=== PATIENT | female | born 1985 | race Caucasian/White ===

== ENCOUNTER 2023-11-04 09:01 | Inpatient (IN) | payer OTHER, SELFPAY ==
[2023-11-04] VITALS (26 sets, daily range): BP systolic 83–143; BP diastolic 40–74; PULSE 66–117; RESP 11–22; TEMP 36.7–40.2; O2SAT 86–96; BMI 46.8
--- NOTE | 2023-11-04 | ECG_ITS ---
Test Reason : AMS Blood Pressure : / mmHG Vent. Rate : 107 BPM Atrial Rate : 107 BPM P-R Int : 142 ms QRS Dur : 090 ms QT Int : 398 ms P-R-T Axes : 038 013 034 degrees QTc Int : 531 ms Sinus tachycardia Prolonged QT Abnormal ECG No previous ECGs available Referred By: Generic ED Physician Electronically Signed By:Joe Romeo
--- NOTE | ~2023-11-04 | XR_ITS ---
EXAMINATION: XR CHEST CLINICAL INFORMATION: Rule out developing pneumonia COMPARISON: 11/04/2023 TECHNIQUE: 2 views of the chest were obtained. FINDINGS: Examination is technically very limited on this AP and very limited lateral portable examination. No significant abnormality is noted involving the heart, lungs, mediastinum, bony thorax or soft tissues. XR/XR chest 2V IMPRESSION: Very limited though grossly clear frontal and lateral chest radiographs.
--- NOTE | ~2023-11-04 | CT_ITS ---
EXAMINATION: CT HEAD WITHOUT CONTRAST CLINICAL INFORMATION: Altered mental status COMPARISON: None. TECHNIQUE: Contiguous axial imaging was performed from the skull base to vertex without intravenous administration of contrast. Coronal and sagittal reformatted images are performed at the CT scanner. [This CT examination was performed using dose optimization techniques as appropriate, variously including the following: *Automated exposure control *Adjustment of mA and/or kV according to patient size (this includes techniques or standardized protocols for targeted exams where dose is matched to indication/reason for exam; i.e. extremities or head) *Use of iterative reconstruction technique] DLP: 695 mGy-cm. FINDINGS: Artifact from small round metallic structure at the midline anteriorly. Correlate with history. There is no evidence of acute intracranial hemorrhage or territorial infarction. No abnormal mass-effect or midline shift is seen. Tabares to white matter differentiation is well preserved. No extra-axial fluid collections are identified. The ventricles are normal in size. There is no abnormal attenuation within the brain parenchyma. There is no osseous abnormality. The mastoid air cells and visualized portions of the paranasal sinuses are well-aerated. CT/CT head/brain wo IV con IMPRESSION: No acute intracranial pathology.
--- NOTE | ~2023-11-04 | CT_ITS ---
EXAMINATION: CT ABDOMEN AND PELVIS WITHOUT CONTRAST CLINICAL INFORMATION: Right lower quadrant pain. COMPARISON: None available. TECHNIQUE: Multidetector volumetric imaging was performed from the superior aspect of the liver through the pubic symphysis. Sagittal and coronal reformatted images were obtained on the technologist's workstation. This CT examination was performed using dose optimization techniques as appropriate, variously including the following: *Automated exposure control *Adjustment of mA and/or kV according to patient size (this includes techniques or standardized protocols for targeted exams where dose is matched to indication/reason for exam; i.e. extremities or head) *Use of iterative reconstruction technique DLP: 1340 mGy-cm FINDINGS: LOCALIZER IMAGES: No dilated bowel loops. [id number] amount fecal material within the colon. Obese body habitus. LUNG BASES: Mild atelectasis in dependent aspect of each lower lobe. HEPATOBILIARY: Diffuse hepatic steatosis (or steatohepatitis) and hepatomegaly with right hepatic lobe measuring approximately 28.5 cm in maximum length. No focal liver lesion. Gallbladder has a grossly normal appearance. No dilated bile ducts. PANCREAS: No edema, pancreatic ductal dilatation or mass. SPLEEN: Mild splenomegaly. Spleen is 15 cm in maximum dimension. ADRENAL GLANDS: Normal. KIDNEYS AND URETERS: Kidneys are normal in size. Small 0.3 cm calyceal stone of the lower pole of the left kidney (image 38, series 3). No ureteral stones or hydroureteronephrosis. BLADDER: Normal. BOWEL AND PERITONEUM: Stomach and small bowel are unremarkable. No dilated loops. The appendix is normal. No overt colonic wall thickening or mesenteric fat stranding. No free fluid or pneumoperitoneum. ABDOMINAL WALL: A very small fat-containing umbilical hernia is noted. No acute abnormalities within the abdominal wall. Mild streak artifact from metallic clips in the right inguinal region. VASCULATURE: Abdominal aorta is normal in caliber. LYMPH NODES: No retroperitoneal or mesenteric lymphadenopathy. Mildly enlarged inguinal lymph nodes. The largest right and left inguinal lymph nodes measure up to approximately 1.5 cm and 1.2 cm short axis dimension, respectively, and there are slightly prominent right and left lower external iliac lymph nodes. PELVIC VISCERA: No uterine or adnexal mass. No pelvic free fluid. MUSCULOSKELETAL: No acute or suspicious osseous abnormality. CT/CT abdomen pelvis wo IV con IMPRESSION: * No specific source of right lower quadrant pain is identified. No evidence of appendicitis. * Obesity, hepatosplenomegaly and diffuse hepatic steatosis (or steatohepatitis). * Small stone of the lower pole of the left kidney. No ureteral stones or hydroureteronephrosis. * There is mild inguinal and external iliac lymphadenopathy. Since the superficial right inguinal lymph nodes are larger than those seen on the left, query if there is any soft tissue inflammatory process in the right lower extremity which could cause a mild reactive lymphadenopathy.
--- NOTE | ~2023-11-04 | XR_ITS ---
EXAMINATION: XR CHEST CLINICAL INFORMATION: Evaluate infection. COMPARISON: None available. TECHNIQUE: 2 views of the chest were obtained. FINDINGS: Large body habitus. Lungs are well expanded. No evidence of pulmonary consolidation, pleural effusion or pneumothorax. Cardiac silhouette is normal in size. The pulmonary vascular pattern is normal. No acute osseous abnormality. XR/XR chest 2V IMPRESSION: No radiographic evidence of pneumonia.
[2023-11-04 09:17] LABS: Glucose, Whole Blood 235 mg/dL (60-115)
[2023-11-04 09:44] LABS: Hematocrit 35.1 % (37.0-47.0); Hemoglobin 11.4 g/dl (12.0-16.0); Mean Corpuscular HGB Conc 32.5 g/dl (31.0-35.0); Mean Corpuscular Hemoglobin 25.9 pg (27.0-33.0); Mean Corpuscular Volume 79.8 fL (80.0-98.0); Mean Platelet Volume 10.2 fL (9.4-12.3); Platelet Count 270 X10*3/uL (160-400); White Blood Count 12.6 X10*3/uL (4.8-10.8)
--- NOTE | 2023-11-04 09:45 | ED_ITS ---
HPI - Altered Mental Status General Chief Complaint: Altered Mental Status Stated Complaint: AMS,DIAPHORETIC,NAUSEA,THIRST PER EMS Time Seen by Provider: 11/04/23 09:42 Source: patient and EMS Mode of arrival: EMS Limitations: no limitations History of Present Illness ED Provider: RL VILLEGAS PA-C HPI narrative: 38 year old female presents to the ED today via EMS from methadone rehab facility for evaluation of AMS. Per long term staff, patient alert and oriented to self however was having difficulty finding worse. Began reporting increased thirst, nausea, and became diaphoretic, prompting staff to call EMS. In ED, patient tells me that she woke up this morning with central lumbar back pain and diarrhea. Reports taking tylenol for this around 0800. Now having right lower abdominal pain that radiates to her back. Admits to remote history of IVDU 10 years ago. No current IVDU. No history of spinal surgeries. Denies injury/ trauma to the back. Denies dysuria, hematuria, flank pain, vaginal discharge, constipation. Related Data Home Medications ?Medication ?Instructions ?Recorded ?Confirmed acetaminophen 325 mg tablet 650 mg PO Q6H PRN pain 11/04/23 albuterol sulfate 90 mcg/actuation inhalation 11/04/23 aerosol inhaler (Ventolin HFA) alprazolam 1 mg tablet 1 mg PO QID PRN Anxiety 11/04/23 aspirin 81 mg tablet,delayed 81 mg PO DAILY 11/04/23 release diclofenac sodium 75 mg 75 mg PO BID 11/04/23 tablet,delayed release diphenhydramine HCl 25 mg tablet 75 mg PO BEDTIME PRN insomnia 11/04/23 (Banophen) doxazosin 2 mg tablet 2 mg PO DAILY 11/04/23 lamotrigine 200 mg tablet 200 mg PO BID 11/04/23 levothyroxine 112 mcg tablet 112 mcg PO DAILY@0600 11/04/23 lurasidone 80 mg tablet 80 mg PO DAILY 11/04/23 multivitamin with folic acid 400 1 tab PO DAILY 11/04/23 mcg tablet (Daily-[place] (with folic acid)) omeprazole 20 mg capsule,delayed 20 mg PO DAILY@0630 11/04/23 release potassium chloride 10 mEq 10 meq PO BID 11/04/23 tablet,extended release prazosin 5 mg capsule 5 mg PO BID 11/04/23 pregabalin 150 mg capsule 300 mg PO BID 11/04/23 promethazine 50 mg tablet 100 mg PO BID 11/04/23 torsemide 20 mg tablet 40 mg PO DAILY 11/04/23 triamcinolone acetonide 0.1 % 1 appl topical BID-TID 11/04/23 topical cream zolpidem 10 mg tablet 10 mg PO BEDTIME insomnia 11/04/23 Allergies Allergy/AdvReac Type Severity Reaction Status Date / Time cephalexin Allergy Unknown Verified 11/04/23 09:16 Review of Systems 2 Review of Systems: Constitutional: No fever, chills, fatigue, night sweats, weight changes ENT/Mouth: No ear pain, hearing loss, nasal congestion, sinus pain, rhinorrhea, sore throat Eyes: No eye pain, swelling, redness, vision changes, discharge Cardio: No chest pain, palpitations, [place], orthopnea, peripheral edema Pulm: No SOB, cough, sputum, wheezing, dyspnea, hemoptysis GI: No nausea, vomiting, hematemesis, constipation, hematochezia, melena, + abdominal pain : No irregular bleeding, dysuria, frequency, urgency, hesitancy, hematuria, flank pain, urinary flow changes, urinary incontinence or retention MSK: No neck pain, joint pain, myalgias, +back pain Skin: No lesions, rashes Neuro: No weakness, numbness, paresthesias, LOC, dizziness, headache Psych: No anxiety/panic, depression, SI/HI, AH/VH All other systems reviewed and are negative. [facility] Past Medical History Attestation statement: The following information was validated with the patient. Source: old records reviewed and nursing notes reviewed Social History Social History Household Members: Unknown / Unable to assess Housing: Unknown / Unable to assess Patient Tobacco Use Status: Tobacco use Unknown Smoked in Last 30 Days: Yes Use of substances other than those prescribed or required for medical reasons: Unable to respond Substance Use Type: Unknown Any prior treatment program specific to substance use: Yes Spiritual Healthcare Practices: unknown Advance Directives: No Advance Directives Information Provided: Yes Do you have a plan to hurt others: Vague Recently lost weight without trying: Unsure How much weight loss: Unsure Physical Exam ED Vital Signs: Vital Signs - 24 hr 11/04/23 09:22 11/04/23 09:23 11/04/23 09:33 Temperature 98.7 F Pulse Rate 105 H 109 H 107 H Respiratory Rate 22 H 22 H Blood Pressure 121/66 Pulse Oximetry 86 L 88 L 92 Oxygen Delivery Method Room Air Nasal Cannula Nasal Cannula Oxygen Flow Rate 2 4 11/04/23 09:42 11/04/23 09:43 11/04/23 11:23 Temperature 104.3 F H 104.1 F H 101.6 F H Pulse Rate 103 H 92 Respiratory Rate 16 18 Blood Pressure 128/59 L 110/45 L Pulse Oximetry 88 L 92 Oxygen Delivery Method Nasal Cannula Nasal Cannula Oxygen Flow Rate 4 5 11/04/23 12:09 11/04/23 12:55 11/04/23 15:22 Temperature 100.5 F H Pulse Rate 82 81 73 Respiratory Rate 18 14 14 Blood Pressure 107/48 L 95/40 L 83/47 L Pulse Oximetry 91 L 92 95 Oxygen Delivery Method Nasal Cannula Nasal Cannula Nasal Cannula Oxygen Flow Rate 5 5 5 11/04/23 15:34 11/04/23 15:37 11/04/23 15:41 Temperature Pulse Rate 69 70 67 Respiratory Rate 14 14 Blood Pressure 83/47 L 103/46 L 114/53 L Pulse Oximetry 93 94 Oxygen Delivery Method Nasal Cannula Nasal Cannula Oxygen Flow Rate 5 5 11/04/23 15:49 11/04/23 16:02 Temperature Pulse Rate 67 66 Respiratory Rate 14 14 Blood Pressure 114/64 129/61 Pulse Oximetry 94 94 Oxygen Delivery Method Nasal Cannula Nasal Cannula Oxygen Flow Rate 5 5 BMI result Body Mass Index 46.8 Initially febrile, tachypneic, tachycardic Const Other: Patient oriented to person, place, year. Mentation waxes and wanes. General: diaphoretic and ill appearing Limitations: altered mental status [facility] Head: Yes normal to inspection, Yes No palpable skull fracture present, Yes normocephalic and Yes atraumatic Throat: Yes posterior oropharynx normal Eyes General: appearance normal, both eyes and all related structures Pupils: Equal, round and reactive pupils present Neck Neck: Yes normal visual inspection, Yes full ROM and Yes no lymphadenopathy Chest Chest palpation & inspection: normal inspection of the chest Resp Effort & Inspection: able to speak in complete sentences Auscultation: clear to auscultation bilaterally Cardio Rate: tachycardic Rhythm: regular rhythm GI Other: Obese abdomen, soft, mildly tender to palpation of right lower quadrant without rebound tenderness or guarding. Normoactive bowel sounds x4. Inspection: Yes normal to inspection General: Yes no CVA tenderness Back/Spine/Pelvis Other: There is minimal midline lumbar spinous tenderness to palpation without palpable deformity, mass, fluctuance. No paraspinal muscle tenderness to palpation. Back: no CVA tenderness Skin Other: No open wounds noted to skin General skin exam: no rashes or lesions noted Neuro Other: Strength 5/5 intact throughout. No saddle anesthesia.?Sensation intact to light touch.?Neurovascular intact distally.? Cranial nerves: Yes Equal, round and reactive pupils present Extrem General: Yes normal to inspection Course Course Course Narrative: 1400-- Discussed case with my attending physician Dr. Garcia who has evaluated patient at bedside and is agreeable with current work up. CBC showing leukocytosis to 12.6 with 14% bands. Chemistry without acute electrolyte abnormality requiring intervention. Random glucose 233. Normal renal function. Elevated LFTs however no evidence of obstruction with total bili wnl. Initial lactic acid 3.3. Repeat lactic improved to 2.5 following 4 L of fluids. Urine is negative for infection. There is 2+ urine bacteria with 6- 10 squamous epithelial cells, likely contamination. Toxicology positive for methadone and benzos. Ethanol undetectable. She tested negative for COVID, flu, RSV, and strep. Chest x-ray does not demonstrate consolidation or infiltrate to suggest pneumonia. > After receiving call from lab regarding critical lactic of 3.3 > concern for infection noted. Zosyn and vancomycin ordered for broad-spectrum coverage. Sepsis protocol fluids ordered at that time. Tylenol/ Motrin given for fever. > CT abdomen/pelvis pending to r/o pathology. 1438-- Patient's O2 saturation around 92 on 5 L nasal cannula. Initial chest x- ray does not demonstrate pneumonia. Will repeat to see if she has developed pneumonia in the interim. > vbg, ammonia, and tsh for continued altered mentation. 1459-- Discussed case with my attending physician Dr. Garcia who again evaluated patient at bedside. Patient becoming more lethargic. Responsive to painful stimuli.. CT head ordered. another liter of IVF ordered. will continue to monitor blood pressure. 1528-- Repeat BP 83/47. Dr. Bales and Dr. Garcia at bedside. Levophed ordered per protocol through peripheral IV at request of Dr. Bales. He is agreeable to admission to ICU pending unremarkable CT head/brain. 1600-- CT head does not demonstrate acute intracranial pathology. Dr. Britton has accepted admission to ICU for septic shock with unclear source requiring pressor support. Reevaluation(s) Reevaluation #1: Patient reevaluated by me. Pressure now down despite 4L of fluid and abx. Will give another liter, start levophed. Patient not with menigismus but Head CT done for altered mental status. Case presented at bedside to Dr. Ortiz who will accept the patient Time: 15:32 Medications Administered Generic Name Dose Route Start Last Admin Trade Name Freq PRN Reason Stop Dose Admin Heparin Sodium (Porcine) 5,000 unit 11/04/23 15:30 11/04/23 15:38 Heparin Sodium,Porcine 5,000 Unit/Ml Vial SUBCUT 5,000 unit Q8H NISSA Administration Norepinephrine Bitartrate 8 mg in 250 mls @ 0 mls/hr 11/04/23 15:30 11/04/23 17:42 Levophed IV 0.07 mcg/kg/min .Q0M NISSA 18.34 mls/hr Titration Protocol Per Protocol Piperacillin Sod/Tazobactam 50 mls @ 100 mls/hr 11/04/23 15:30 11/04/23 16:26 Sod 3.375 gm/ Sodium Chloride IV Infused Q6H NISSA Infusion Insulin Human Lispro 0 unit 11/04/23 16:30 11/04/23 17:43 Insulin Lispro 100 Unit/Ml 3 Ml Vial SUBCUT Not Given QIDACHS ON LICENSE OF [facility] Protocol Discontinued Medications Generic Name Dose Route Start Last Admin Trade Name Freq PRN Reason Stop Dose Admin Acetaminophen 975 mg 11/04/23 10:05 11/04/23 10:17 Acetaminophen 325 Mg Tablet PO 11/04/23 10:06 975 mg ONCE ONE Administration Sodium Chloride 4,191 mls @ 4,191 mls/hr 11/04/23 09:42 11/04/23 12:00 Ns 30 ml/kg infuse over 1 hr (4191 ml) 11/04/23 10:41 Infused IV Infusion .Q1H STA Piperacillin Sod/Tazobactam 50 mls @ 100 mls/hr 11/04/23 09:43 11/04/23 10:36 Sod 3.375 gm/ Sodium Chloride IV 11/04/23 10:12 Infused ONCE ONE Infusion Vancomycin HCl 2,000 mg in 500 mls @ 250 mls/hr 11/04/23 09:43 11/04/23 12:21 Vancomycin/Ns IV 11/04/23 11:42 Infused ONCE ONE Infusion Sodium Chloride 1,000 mls @ 999 mls/hr 11/04/23 15:00 11/04/23 16:02 Ns IV 11/04/23 16:00 Infused .Q1H1M NISSA Infusion Ibuprofen 600 mg 11/04/23 10:05 11/04/23 10:17 Ibuprofen 600 Mg Tablet PO 11/04/23 10:06 600 mg ONCE ONE Administration Ketorolac Tromethamine 30 mg 11/04/23 15:13 11/04/23 15:30 Ketorolac Tromethamine 30 Mg/Ml Vial IVPUSH 11/04/23 15:14 30 mg ONCE ONE Administration Medical Decision Making Medical Decision Making [facility] Narrative: 38 year old female presents to the ED today via EMS from methadone rehab facility for evaluation of AMS. On arrival, patient febrile to 104 rectally, tachycardic to 105, tachypneic to 22, and satting 96% on RA. Patient placed on 5L nasal cannula. Patient diaphoretic, ill appearing. Oriented to person, place, and year. Obese abdomen, ttp along right upper and right low quadrants without rebound or guarding. Minimal midline lumbar spinous tenderness without palpable mass or fluctuance. no step off deformity. No CVAT b/l. I have not been able to assess ambulation due to patient's acute mental status. No meningeal signs or nunchal rigidity. Differential diagnosis includes viral syndrome, UTI, pneumonia, bacteremia. Lower suspicion for epidural abscess, meningitis, encephalitis Plan for labs, lactic, blood cultures, UA, u preg, CXR and re-evaluation. Differential Diagnosis Differential Diagnoses: The differential diagnosis associated with the presentation includes as above. Admission/Observation Consideration of admission/observation: Escalation of care including admission/observation considered Patient to be admitted to ICU Consult Healthcare Provider Management of the patient was discussed with: Director Machine (Clothing Examiner Dr. Ortiz) Lab Data [facility] Lab Attestation statement: I reviewed the patient's lab results. as above. 11/04/23 09:32 11/04/23 09:32 Labs: Lab Results 11/04/23 11/04/23 11/04/23 Range/Units 09:13 09:32 10:01 WBC 12.6 H (4.8-10.8) X10*3/uL RBC 4.40 (4.20-5.50) X10*6/uL Hgb 11.4 L (12.0-16.0) g/dl Hct 35.1 L (37.0-47.0) % MCV 79.8 L (80.0-98.0) fL MCH 25.9 L (27.0-33.0) pg MCHC 32.5 (31.0-35.0) g/dl RDW 18.0 H (11.0-16.0) % Plt Count 270 (160-400) X10*3/uL MPV 10.2 (9.4-12.3) fL Immature Gran % (Auto) Cancelled Neut % (Auto) Cancelled Lymph % (Auto) Cancelled [place] % (Auto) Cancelled Eos % (Auto) Cancelled Baso % (Auto) Cancelled Lymph # (Auto) Cancelled [place] # (Auto) Cancelled Eos # (Auto) Cancelled Baso # (Auto) Cancelled Abs Immat Gran (auto) Cancelled Absolute Neuts (auto) Cancelled Absolute Nucleated RBC 0.000 (0.0-0.012) X10*3/uL Nucleated RBC % (auto) 0.0 (0.0-0.2) /100WBC Neutrophils % (Manual) 79 H (45-73) % Band Neutrophils % 14 H (3-5) % Lymphocytes % (Manual) 4 L (20-40) % Monocytes % (Manual) 2 (2-11) % Metamyelocytes % 1 % Abs Neuts (Manual) 11.7 H (2.0-8.3) X10*3/uL Lymphocytes # (Manual) 0.5 L (1.2-4.9) X10*3/uL Monocytes # (Manual) 0.3 (0.1-1.2) X10*3/uL Metamyelocytes # 0.1 X10*3/uL Toxic Vacuolation PRESENT Platelet Estimate NORMAL (NORMAL) Plt Morphology Comment NORMAL RBC Morphology NORMAL PT 12.9 (11.1-13.3) SEC INR 1.1 (0.9-1.1) APTT 27.2 (26.0-36.8) SEC VBG pH (7.32-7.43) VBG pCO2 mmHg VBG pO2 mmHg VBG HCO3 (22-26) mmol/L VBG O2 Saturation % VBG Base Excess mmol/L Sodium 137 (135-145) mmol/L Potassium 4.4 (3.3-5.1) mmol/L Chloride 97 (96-108) mmol/L Carbon Dioxide 27 (22-29) mmol/L Anion Gap 17 (12-20) BUN 14 (9-16) mg/dL Creatinine 1.17 (0.5-1.4) mg/dL Estim Creat Clear Calc 98.9 Estimated GFR 52 POC Glucose 235 H (60-115) mg/dL Random Glucose 233 H (60-115) mg/dL Lactic Acid 3.3 H* (0.5-2.0) mmol/L Lactic Acid F/U @ 2Hr (0.5-2.0) mmol/L Lactic Acid F/U @ 4Hr (0.5-2.0) mmol/L Calcium 9.3 (8.4-10.2) mg/dL Total Bilirubin 0.5 (0.0-1.0) mg/dL AST 40 H (5-31) U/L ALT 41 H (0-31) U/L Alkaline Phosphatase 182 H (39-117) U/L Ammonia (13-55) umol/L Troponin I High Sens 9.3 (<3.5-17.0) ng/L B-Natriuretic Peptide < 10 (<100) pg/mL Total Protein 8.2 H (6.5-8.0) g/dL Albumin 4.0 (3.5-5.0) g/dL TSH (0.32-4.0) uIU/mL Urine Color Urine Appearance Urine pH (5.0-9.0) Ur Specific [place] (1.005-1.025) Urine Protein (Neg-Trace) mg/dL Urine Glucose (UA) (Negative) mg/dL Urine Ketones (Negative) mg/dL Urine Blood (Negative) Urine Nitrite (Negative) Ur Leukocyte Esterase (Negative) Urine RBC (0-2) /HPF Urine WBC (0-5) /HPF Ur Squamous Epith Cells (0-2) /HPF Urine Bacteria (None Seen) Hyaline Casts (0-2) /LPF Urine Test (NEGATIVE) Urine Opiates Screen (Not Detect) Ur Buprenorphine Scrn (Not Detect) ng/mL Ur Oxycodone Screen (Not Detect) ng/mL Urine Methadone Screen (Not Detect) ng/mL Urine Fentanyl Screen (Not Detect) Ur Barbiturates Screen (Not Detect) Ur Phencyclidine Scrn (Not Detect) Ur Amphetamines Screen (Not Detect) U Benzodiazepines Scrn (Not Detect) Urine Cocaine Screen (Not Detect) U Marijuana (THC) Screen (Not Detect) Ethyl Alcohol < 10 mg/dL Influenza Type A (PCR) NEGATIVE (Negative) Influenza Type B (PCR) NEGATIVE (Negative) RSV RNA Qual (PCR) NEGATIVE (Negative) SARS-CoV-2 RNA (RT-PCR) NEGATIVE (Negative) S. pyogenes GrpA SILVIA Negative (Negative) 11/04/23 11/04/23 11/04/23 Range/Units 11:51 12:41 15:06 WBC (4.8-10.8) X10*3/uL RBC (4.20-5.50) X10*6/uL Hgb (12.0-16.0) g/dl Hct (37.0-47.0) % MCV (80.0-98.0) fL MCH (27.0-33.0) pg MCHC (31.0-35.0) g/dl RDW (11.0-16.0) % Plt Count (160-400) X10*3/uL MPV (9.4-12.3) fL Immature Gran % (Auto) Neut % (Auto) Lymph % (Auto) [place] % (Auto) Eos % (Auto) Baso % (Auto) Lymph # (Auto) [place] # (Auto) Eos # (Auto) Baso # (Auto) Abs Immat Gran (auto) Absolute Neuts (auto) Absolute Nucleated RBC (0.0-0.012) X10*3/uL Nucleated RBC % (auto) (0.0-0.2) /100WBC Neutrophils % (Manual) (45-73) % Band Neutrophils % (3-5) % Lymphocytes % (Manual) (20-40) % Monocytes % (Manual) (2-11) % Metamyelocytes % % Abs Neuts (Manual) (2.0-8.3) X10*3/uL Lymphocytes # (Manual) (1.2-4.9) X10*3/uL Monocytes # (Manual) (0.1-1.2) X10*3/uL Metamyelocytes # X10*3/uL Toxic Vacuolation Platelet Estimate (NORMAL) Plt Morphology Comment RBC Morphology PT (11.1-13.3) SEC INR (0.9-1.1) APTT (26.0-36.8) SEC VBG pH (7.32-7.43) VBG pCO2 mmHg VBG pO2 mmHg VBG HCO3 (22-26) mmol/L VBG O2 Saturation % VBG Base Excess mmol/L Sodium (135-145) mmol/L Potassium (3.3-5.1) mmol/L Chloride (96-108) mmol/L Carbon Dioxide (22-29) mmol/L Anion Gap (12-20) BUN (9-16) mg/dL Creatinine (0.5-1.4) mg/dL Estim Creat Clear Calc Estimated GFR POC Glucose (60-115) mg/dL Random Glucose (60-115) mg/dL Lactic Acid (0.5-2.0) mmol/L Lactic Acid F/U @ 2Hr 2.5 H* (0.5-2.0) mmol/L Lactic Acid F/U @ 4Hr 2.1 H* (0.5-2.0) mmol/L Calcium (8.4-10.2) mg/dL Total Bilirubin (0.0-1.0) mg/dL AST (5-31) U/L ALT (0-31) U/L Alkaline Phosphatase (39-117) U/L Ammonia 39 (13-55) umol/L Troponin I High Sens (<3.5-17.0) ng/L B-Natriuretic Peptide (<100) pg/mL Total Protein (6.5-8.0) g/dL Albumin (3.5-5.0) g/dL TSH 0.75 (0.32-4.0) uIU/mL Urine Color Yellow Urine Appearance Clear Urine pH 7.0 (5.0-9.0) Ur Specific [place] 1.010 (1.005-1.025) Urine Protein Negative (Neg-Trace) mg/dL Urine Glucose (UA) Negative (Negative) mg/dL Urine Ketones Negative (Negative) mg/dL Urine Blood Negative (Negative) Urine Nitrite Negative (Negative) Ur Leukocyte Esterase Negative (Negative) Urine RBC 0-2 (0-2) /HPF Urine WBC 0-5 (0-5) /HPF Ur Squamous Epith Cells 6-10 (0-2) /HPF Urine Bacteria 2+ (None Seen) Hyaline Casts 0-2 (0-2) /LPF Urine Test NEGATIVE (NEGATIVE) Urine Opiates Screen Not Detected (Not Detect) Ur Buprenorphine Scrn Not Detected (Not Detect) ng/mL Ur Oxycodone Screen Not Detected (Not Detect) ng/mL Urine Methadone Screen Positive H (Not Detect) ng/mL Urine Fentanyl Screen Not Detected (Not Detect) Ur Barbiturates Screen Not Detected (Not Detect) Ur Phencyclidine Scrn Not Detected (Not Detect) Ur Amphetamines Screen Not Detected (Not Detect) U Benzodiazepines Scrn POSITIVE H (Not Detect) Urine Cocaine Screen Not Detected (Not Detect) U Marijuana (THC) Screen Not Detected (Not Detect) Ethyl Alcohol mg/dL Influenza Type A (PCR) (Negative) Influenza Type B (PCR) (Negative) RSV RNA Qual (PCR) (Negative) SARS-CoV-2 RNA (RT-PCR) (Negative) S. pyogenes GrpA SILVIA (Negative) 11/04/23 Range/Units 15:07 WBC (4.8-10.8) X10*3/uL RBC (4.20-5.50) X10*6/uL Hgb (12.0-16.0) g/dl Hct (37.0-47.0) % MCV (80.0-98.0) fL MCH (27.0-33.0) pg MCHC (31.0-35.0) g/dl RDW (11.0-16.0) % Plt Count (160-400) X10*3/uL MPV (9.4-12.3) fL Immature Gran % (Auto) Neut % (Auto) Lymph % (Auto) [place] % (Auto) Eos % (Auto) Baso % (Auto) Lymph # (Auto) [place] # (Auto) Eos # (Auto) Baso # (Auto) Abs Immat Gran (auto) Absolute Neuts (auto) Absolute Nucleated RBC (0.0-0.012) X10*3/uL Nucleated RBC % (auto) (0.0-0.2) /100WBC Neutrophils % (Manual) (45-73) % Band Neutrophils % (3-5) % Lymphocytes % (Manual) (20-40) % Monocytes % (Manual) (2-11) % Metamyelocytes % % Abs Neuts (Manual) (2.0-8.3) X10*3/uL Lymphocytes # (Manual) (1.2-4.9) X10*3/uL Monocytes # (Manual) (0.1-1.2) X10*3/uL Metamyelocytes # X10*3/uL Toxic Vacuolation Platelet Estimate (NORMAL) Plt Morphology Comment RBC Morphology PT (11.1-13.3) SEC INR (0.9-1.1) APTT (26.0-36.8) SEC VBG pH 7.45 H (7.32-7.43) VBG pCO2 37 mmHg VBG pO2 102 mmHg VBG HCO3 26 (22-26) mmol/L VBG O2 Saturation 99.0 % VBG Base Excess 2.9 mmol/L Sodium (135-145) mmol/L Potassium (3.3-5.1) mmol/L Chloride (96-108) mmol/L Carbon Dioxide (22-29) mmol/L Anion Gap (12-20) BUN (9-16) mg/dL Creatinine (0.5-1.4) mg/dL Estim Creat Clear Calc Estimated GFR POC Glucose (60-115) mg/dL Random Glucose (60-115) mg/dL Lactic Acid (0.5-2.0) mmol/L Lactic Acid F/U @ 2Hr (0.5-2.0) mmol/L Lactic Acid F/U @ 4Hr (0.5-2.0) mmol/L Calcium (8.4-10.2) mg/dL Total Bilirubin (0.0-1.0) mg/dL AST (5-31) U/L ALT (0-31) U/L Alkaline Phosphatase (39-117) U/L Ammonia (13-55) umol/L Troponin I High Sens (<3.5-17.0) ng/L B-Natriuretic Peptide (<100) pg/mL Total Protein (6.5-8.0) g/dL Albumin (3.5-5.0) g/dL TSH (0.32-4.0) uIU/mL Urine Color Urine Appearance Urine pH (5.0-9.0) Ur Specific [place] (1.005-1.025) Urine Protein (Neg-Trace) mg/dL Urine Glucose (UA) (Negative) mg/dL Urine Ketones (Negative) mg/dL Urine Blood (Negative) Urine Nitrite (Negative) Ur Leukocyte Esterase (Negative) Urine RBC (0-2) /HPF Urine WBC (0-5) /HPF Ur Squamous Epith Cells (0-2) /HPF Urine Bacteria (None Seen) Hyaline Casts (0-2) /LPF Urine Test (NEGATIVE) Urine Opiates Screen (Not Detect) Ur Buprenorphine Scrn (Not Detect) ng/mL Ur Oxycodone Screen (Not Detect) ng/mL Urine Methadone Screen (Not Detect) ng/mL Urine Fentanyl Screen (Not Detect) Ur Barbiturates Screen (Not Detect) Ur Phencyclidine Scrn (Not Detect) Ur Amphetamines Screen (Not Detect) U Benzodiazepines Scrn (Not Detect) Urine Cocaine Screen (Not Detect) U Marijuana (THC) Screen (Not Detect) Ethyl Alcohol mg/dL Influenza Type A (PCR) (Negative) Influenza Type B (PCR) (Negative) RSV RNA Qual (PCR) (Negative) SARS-CoV-2 RNA (RT-PCR) (Negative) S. pyogenes GrpA SILVIA (Negative) Independent Interpretation I performed an independent interpretation of an: Plain X-Ray and CT Scan Interpretation: CT abdomen/ pelvis showing hepatic steatosis, agree with radiologists's interpretation. Initial chest xray without consolidation or infiltrate, agree with radiologist's interpretation. Repeat chest x-ray without consolidation or infiltrate, agree with radiologist's interpretation. CT head/brain without acute bleed or edema, agree with radiologist's interpretation. Radiology Impression Discussion of test interpretation with radiology: I have reviewed the radiologist's reading. Radiologist Impression: EXAMINATION: CT ABDOMEN AND PELVIS WITHOUT CONTRAST CLINICAL INFORMATION: Right lower quadrant pain. COMPARISON: None available. TECHNIQUE: Multidetector volumetric imaging was performed from the superior aspect of the liver through the pubic symphysis. Sagittal and coronal reformatted images were obtained on the technologist's workstation. This CT examination was performed using dose optimization techniques as appropriate, variously including the following: *Automated exposure control *Adjustment of mA and/or kV according to patient size (this includes techniques or standardized protocols for targeted exams where dose is matched to indication/reason for exam; i.e. extremities or head) *Use of iterative reconstruction technique DLP: 1340 mGy-cm FINDINGS: LOCALIZER IMAGES: No dilated bowel loops. [id number] amount fecal material within the colon. Obese body habitus. LUNG BASES: Mild atelectasis in dependent aspect of each lower lobe. HEPATOBILIARY: Diffuse hepatic steatosis (or steatohepatitis) and hepatomegaly with right hepatic lobe measuring approximately 28.5 cm in maximum length. No focal liver lesion. Gallbladder has a grossly normal appearance. No dilated bile ducts. PANCREAS: No edema, pancreatic ductal dilatation or mass. SPLEEN: Mild splenomegaly. Spleen is 15 cm in maximum dimension. ADRENAL GLANDS: Normal. KIDNEYS AND URETERS: Kidneys are normal in size. Small 0.3 cm calyceal stone of the lower pole of the left kidney (image 38, series 3). No ureteral stones or hydroureteronephrosis. BLADDER: Normal. BOWEL AND PERITONEUM: Stomach and small bowel are unremarkable. No dilated loops. The appendix is normal. No overt colonic wall thickening or mesenteric fat stranding. No free fluid or pneumoperitoneum. ABDOMINAL WALL: A very small fat-containing umbilical hernia is noted. No acute abnormalities within the abdominal wall. Mild streak artifact from metallic clips in the right inguinal region. VASCULATURE: Abdominal aorta is normal in caliber. LYMPH NODES: No retroperitoneal or mesenteric lymphadenopathy. Mildly enlarged inguinal lymph nodes. The largest right and left inguinal lymph nodes measure up to approximately 1.5 cm and 1.2 cm short axis dimension, respectively, and there are slightly prominent right and left lower external iliac lymph nodes. PELVIC VISCERA: No uterine or adnexal mass. No pelvic free fluid. MUSCULOSKELETAL: No acute or suspicious osseous abnormality. CT/CT abdomen pelvis wo IV con IMPRESSION: * No specific source of right lower quadrant pain is identified. No evidence of appendicitis. * Obesity, hepatosplenomegaly and diffuse hepatic steatosis (or steatohepatitis). * Small stone of the lower pole of the left kidney. No ureteral stones or hydroureteronephrosis. * There is mild inguinal and external iliac lymphadenopathy. Since the superficial right inguinal lymph nodes are larger than those seen on the left, query if there is any soft tissue inflammatory process in the right lower extremity which could cause a mild reactive lymphadenopathy. EXAMINATION: XR CHEST CLINICAL INFORMATION: Evaluate infection. COMPARISON: None available. TECHNIQUE: 2 views of the chest were obtained. FINDINGS: Large body habitus. Lungs are well expanded. No evidence of pulmonary consolidation, pleural effusion or pneumothorax. Cardiac silhouette is normal in size. The pulmonary vascular pattern is normal. No acute osseous abnormality. XR/XR chest 2V IMPRESSION: No radiographic evidence of pneumonia. EXAMINATION: CT HEAD WITHOUT CONTRAST CLINICAL INFORMATION: Altered mental status COMPARISON: None. TECHNIQUE: Contiguous axial imaging was performed from the skull base to vertex without intravenous administration of contrast. Coronal and sagittal reformatted images are performed at the CT scanner. [This CT examination was performed using dose optimization techniques as appropriate, variously including the following: *Automated exposure control *Adjustment of mA and/or kV according to patient size (this includes techniques or standardized protocols for targeted exams where dose is matched to indication/reason for exam; i.e. extremities or head) *Use of iterative reconstruction technique] DLP: 695 mGy-cm. FINDINGS: Artifact from small round metallic structure at the midline anteriorly. Correlate with history. There is no evidence of acute intracranial hemorrhage or territorial infarction. No abnormal mass-effect or midline shift is seen. Tabares to white matter differentiation is well preserved. No extra-axial fluid collections are identified. The ventricles are normal in size. There is no abnormal attenuation within the brain parenchyma. There is no osseous abnormality. The mastoid air cells and visualized portions of the paranasal sinuses are well-aerated. CT/CT head/brain wo IV con IMPRESSION: No acute intracranial pathology. EXAMINATION: XR CHEST CLINICAL INFORMATION: Rule out developing pneumonia COMPARISON: 11/04/2023 TECHNIQUE: 2 views of the chest were obtained. FINDINGS: Examination is technically very limited on this AP and very limited lateral portable examination. No significant abnormality is noted involving the heart, lungs, mediastinum, bony thorax or soft tissues. XR/XR chest 2V IMPRESSION: Very limited though grossly clear frontal and lateral chest radiographs. Independent Historian Clinical information obtained from an independent historian. History obtained from or confirmed by: EMS Prescription Management I considered prescription management with: Pain Medication and Antibiotic Chronic Conditions Patient?s care impacted by: Other (IVDU, opioid dependency) Social Determinants Patient?s care significantly limited by Social Determinants of Health including: Other Social Determinant of Health Critical Care Time Critical Care Time Critical Care Time: Yes Total Critical Care Time: 75 Attestation: Critical care time in the amount of 75 minutes has been provided to the patient in terms of direct patient care, frequent reevaluation, consultation with machine binding folder, review and interpretation of medical data and results, and management of potentially life-threatening conditions. This is all outside of any medical procedures. Discharge Plan Discharge Clinical Impression: Hypotension, Fever of unknown origin, Acute alteration in mental status, Acute lactic acidosis, Septic shock Patient Disposition: Admitted As Inpatient Discharge Date/Time: 11/04/23 16:10
[2023-11-04 09:51] LABS: INTERNATIONAL NORM RATIO 1.1 (0.9-1.1); Prothrombin Time 12.9 SEC (11.1-13.3)
[2023-11-04 09:53] LABS: Partial Thromboplastin Time 27.2 SEC (26.0-36.8)
[2023-11-04 10:04] LABS: Alanine Aminotransferase 41 U/L (0-31); Alkaline Phosphatase 182 U/L (39-117); Anion Gap 17 (12-20); Aspartate Amino Transferase 40 U/L (5-31); Bilirubin Total 0.5 mg/dL (0.0-1.0); Blood Urea Nitrogen 14 mg/dL (9-16); Calcium 9.3 mg/dL (8.4-10.2); Carbon Dioxide 27 mmol/L (22-29); Chloride 97 mmol/L (96-108); Creatinine Clr Calc Pharmacy 98.9; Estimated Glomerular Filt Rate 52; Ethanol < 10 mg/dL; Glucose Random 233 mg/dL (60-115); Potassium 4.4 mmol/L (3.3-5.1); Sodium 137 mmol/L (135-145); Total Protein 8.2 g/dL (6.5-8.0)
[2023-11-04 10:06] LABS: B Type Natriuretic Peptide < 10 pg/mL (<100)
[2023-11-04] MEDS: vancomycin/NS 2,000 MG/500 ML PLAST..BAG 250 MG IV (10:06)
[2023-11-04] MEDS: Piperacillin Sodium/Tazobactam 3.375 GM in 0.9 % Sodium Chloride 50 ML IV ×3 (10:06→21:12)
[2023-11-04 10:09] LABS: Troponin-I High Sensitivity 9.3 ng/L (<3.5-17.0)
[2023-11-04 10:10] LABS: Neutrophils Percent Manual 79 % (45-73)
[2023-11-04] MEDS: Acetaminophen 325 MG TABLET 975 MG PO (10:17)
[2023-11-04] MEDS: Ibuprofen 600 MG TABLET PO (10:17)
[2023-11-04 10:22] LABS: IDNOW Serial# 08D9AD1C; Strep A Nucleic Acid Negative (Negative)
[2023-11-04 10:23] LABS: Band Neutrophils Percent 14 % (3-5); Lymphocytes Absolute Manual 0.5 X10*3/uL (1.2-4.9); Lymphocytes Percent Manual 4 % (20-40); Metamyelocytes Absolute 0.1 X10*3/uL; Metamyelocytes Percent 1 %; Monocytes Absolute Manual 0.3 X10*3/uL (0.1-1.2); Monocytes Percent Manual 2 % (2-11); Neutrophils Absolute Manual 11.7 X10*3/uL (2.0-8.3)
[2023-11-04 10:24] LABS: RBC Morphology NORMAL
[2023-11-04 10:25] LABS: Platelet Estimate NORMAL (NORMAL); Platelet Morphology Comment NORMAL; Toxic Vacuolation PRESENT
--- NOTE | 2023-11-04 10:28 | PC.NURSE ---
pt lynnettea from rehab/[facility] in [place]. staff noticed pt was altered compared to baseline starting around 0200 this morning. pt usually a&ox4. upon ED arrival - pt alert and oriented to self only. pt thinks she is at a [facility]. pt extremely diaphoretic/hot to the touch. rectal temp obtained displaying 104.1. pt hypoxic/sinus tachycardic on the hall monitor. pt noted to be at 86% on RA. pt placed on 2L via NC w/ minimal effect. pt then bumped up to 4L via NC - pt fluctuating between 88-92%. slight wob noted. pt positioned upright to promote patent airway. ED provider notified/aware of RN's findings. 20gIVs placed in the forearms bilaterally - labs obtained/sent to lab. access' wrapped w/ gauze to remain secured. sepsis workup initiated. IVF/medication administered per provider order. effectiveness pending. pt's belongings searched/cleared by security. belongings remain bedside. plan of care ongoing. call giang placed within reach.
[2023-11-04 10:40] LABS: Lactic Acid 3.3 mmol/L (0.5-2.0)
--- NOTE | 2023-11-04 10:40 | PC.NURSE ---
critical lab value - lactic of 3.3 received at this time. MAITE Holly notified/aware.
[2023-11-04 10:52] LABS: Influenza A PCR NEGATIVE (Negative); Influenza B PCR NEGATIVE (Negative); Resp Syncy Virus RNA Qual PCR NEGATIVE (Negative); SARS COV2 PCR INHOUSE NEGATIVE (Negative)
--- NOTE | 2023-11-04 11:47 | PC.NURSE ---
pt remains altered at this time. alert and oriented to self only. pt is a 2:1 assist to the commode. UA obtained/sent to lab. repeat rectal obtained - pt remains febrile. pt slightly hypotensive. pt no longer sinus tachy - pt nsr on the manager monitoring. pt remains at 5L via NC at this time. slight wob noted. pt positioned upright to promote patent airway. provider notified/aware. IVF/abx still infusing at this time. plan of care ongoing. call giang placed within reach.
--- OUTSIDE RECORDS SUMMARY | 2023-11-04 12:00 | XMS_ITS | Continuity of Care Document ---
Author Organization [facility] Address [address] [place] [address]- Care Team Providers Care Detective Sergeant Name Role Phone Not on Staff, PCP Primary Care Physician Unavail able Encounter [facility] Date(s): 03/28/23 - 03/31/[address] [address]- Discharge Disposition: A-D/C Home Attending Physician: Debra Cantu MD Admitting Physician: Hazel Cuba MD Referring Physician: Ned Acosta MD Allergies, Adverse Reactions, Alerts Substance Reaction Severity Status Keflex Active Medications Acetaminophen = 500 mg, By Mouth, 3 times a day, PRN Pain , Moderate, 0 Refills, Maintenance, 03/28/23 13:07:00 EST, Partial fill upon patient request if the prescription is for a schedule II opioid drug. Start Date: 03/28/23 Status: Ordered Alprazolam See Instructions, 2mg at 5:30 AM, 1 mg at 12, 1mg at HS, Refills 0, Maintenance, 03/28/23 13:09:00 EST, Instructions Replace Required Details, Partial fill upon patient request if the prescription isfor a schedule II opioid drug. Start Date: 03/28/23 Status: Ordered amoxicillin-clavulanate 875 mg-125 mg oral tablet 1 tablet, By Mouth, 2 times a day, for 7 days, # 14 tablet, 0 Refills, Acute 04/07/23 9:12:00 EST, 03/31/23 9:12:00 EST, Tablet, [facility] #[id number], Partial fill upon patient request if the prescription is for a schedule II opioid drug., 158,... Start Date: 03/31/23 Stop Date: 04/07/23 Status: Ordered aspirin 81 mg oral delayed release tablet 81 mg, 1, tablet, By Mouth, Daily, Maintenance, 03/28/23 16:08:00 EST, Partial fill upon patient request if the prescription is for a schedule II opioid drug. Start Date: 03/28/23 Status: Ordered bacitracin topical 500 u/gm ointment 1 application, Topically, 3 times a day, for 7 days, apply to affected skin on right lower extremity., # 15 Gm, 0 Refills, Acute 04/07/23 9:14:00 EST, 03/31/23 9:14:00 EST, Ointment, [facility] #[id number], Partial fill upon patient request if th... Start Date: 03/31/23 Stop Date: 04/07/23 Status: Ordered DiphenhydrAMINE = 50 mg, By Mouth, Daily at bedtime, PRN as needed for insomnia, 0 Refills, Maintenance, 03/28/23 13:10:00 EST, Partial fill upon patient request if the prescription is for a schedule II opioid drug. Start Date: 03/28/23 Status: Ordered doxazosin 2 mg oral tablet 2 mg, Tablet, By Mouth, 03/30/23 21:00:00 EST Start Date: 03/30/23 Stop Date: 03/30/23 Status: Completed doxazosin 2 mg oral tablet 2 mg, 1, tablet, By Mouth, Daily at bedtime, Refills 0, Maintenance, 03/28/23 13:05:00 EST, Partialfill upon patient request if the prescription is for a schedule II opioid drug. Start Date: 03/28/23 Status: Ordered doxycycline monohydrate 100 mg oral tablet = 100 mg, By Mouth, Every 12 hours, for 7 days, # 14 tablet, 0 Refills, Acute 04/07/23 9:13:00 EST,03/31/23 9:13:00 EST, Tablet, [id number], Partial fill upon patient request if theprescription is for a schedule II opioid drug., 158... Start Date: 03/31/23 Stop Date: 04/07/23 Status: Ordered fluticasone 50 mcg/inh nasal spray 2 sprays, Nares, Both, Daily in AM, 0 Refills, Maintenance, 03/28/23 13:03:00 EST, [place], Partial fill upon patient request if the prescription is for a schedule II opioid drug. Start Date: 03/28/23 Status: Ordered lamotrigine 200 mg oral tablet See Instructions, 2 tablets po qhsy, 0 Refills, Maintenance, 03/28/23 13:06:00 EST, Partial fill upon patient request if the prescription is for a schedule II opioid drug. Start Date: 03/28/23 Status: Ordered levothyroxine 0.112 mg oral tablet 1 tablet = 112 mcg, By Mouth, Daily, 0 Refills, Maintenance, 03/28/23 13:07:00 EST, Partial fill upon patient request if the prescription is for a schedule II opioid drug. Start Date: 03/28/23 Status: Ordered lurasidone 80 mg oral tablet 1 tablet = 80 mg, By Mouth, Daily, 0 Refills, Maintenance, 03/28/23 13:06:00 EST, Partial fill uponpatient request if the prescription is for a schedule II opioid drug. Start Date: 03/28/23 Status: Ordered Methadone = 190 mg, By Mouth, Daily, At 5:30 AM, 0 Refills, Maintenance, 03/28/23 13:08:00 EST, Partial fill upon patient request if the prescription is for a schedule II opioid drug. Start Date: 03/28/23 Status: Ordered Methadone Liquid 190 mg, Solution, By Mouth, 03/31/23 5:30:00 EST Start Date: 03/31/23 Stop Date: 03/31/23 Status: Completed omeprazole 20 mg oral delayed release tablet 1 tablet = 20 mg, By Mouth, Daily, 0 Refills, Maintenance, 03/28/23 12:59:00 EST, Partial fill uponpatient request if the prescription is for a schedule II opioid drug. Start Date: 03/28/23 Status: Ordered Pregabalin = 300 mg, By Mouth, 2 times a day, 0 Refills, Maintenance, 03/28/23 13:09:00 EST, Partial fill uponpatient request if the prescription is for a schedule II opioid drug. Start Date: 03/28/23 Status: Ordered Promethazine = 25 mg, By Mouth, PRN as needed for nausea/vomiting, 0 Refills, Maintenance, 03/28/23 13:10:00 EST, Partial fill upon patient request if the prescription is for a schedule II opioid drug. Start Date: 03/28/23 Status: Ordered torsemide 20 mg oral tablet 2 tablet = 40 mg, By Mouth, Daily, 2 tabs AM, 1 tab evening, 0 Refills, Maintenance, 03/28/23 13:05:00 EST, Partial fill upon patient request if the prescription is for a schedule II opioid drug. Start Date: 03/28/23 Status: Ordered Triamcinolone Once, 0 Refills, Maintenance, 03/28/23 13:08:00 EST, Partial fill upon patient request if the prescription is for a schedule II opioid drug. Start Date: 03/28/23 Status: Ordered Ventolin 90 mcg Inhaler 1, puffs, Inhalation, Every 4 hours, Refills 0, Maintenance, 03/28/23 13:08:00 EST, Inhaler Start Date: 03/28/23 Status: Ordered Zolpidem = 10 mg, By Mouth, Daily at bedtime, 0 Refills, Maintenance, 03/28/23 13:09:00 EST, Partial fill upon patient request if the prescription is for a schedule II opioid drug. Start Date: 03/28/23 Status: Ordered Problem List Condition Confirmation Course Effective Dates Status Health St [facility] Informant Severe obesity Confirmed Active Results Orders for Microbiology Reports Name Date Blood Culture 03/28/23 Blood Culture #2 03/28/23 Microbiology Reports TEST:Blood Culture STATUS:Unauthenticated BODY SITE: SOURCE:Blood COLLECTED DATE/TIME:03/28/23 11:18 AM Blood Culture SPECIMEN DESCRIPTION : BLOOD LAC SPECIAL REQUESTS : NONE CULTURE : NO GROWTH 3 DAYS REPORT STATUS : PRELIMINARY REPORT TEST:Blood Culture, Second Order STATUS:Unauthenticated BODY SITE: SOURCE:Blood COLLECTED DATE/TIME:03/28/23 11:18 AM Blood Culture, Second Order SPECIMEN DESCRIPTION : BLOOD R UPPER ARM SPECIAL REQUESTS : NONE CULTURE : NO GROWTH 3 DAYS REPORT STATUS : PRELIMINARY REPORT Radiology Reports * Exam Date Time Procedure Performing Provider Status 03/28/23 4:52 PM US Doppler Ext Lower Venous Right Marilyn Fishman; Auth (Verified) Notes: (US Doppler Ext Lower Venous Right) Reason For Exam: Hx DVT;Pain/Tenderness Extremities RESULT: US Doppler Ext Lower Venous Right US Doppler Ext Lower Venous Right Reason: Pain Tenderness Extremities; Hx DVT; Clinical Question(s): Thrombus COMPARISON: None IMAGING TECHNIQUE: Ultrasound of the veins from the groin through the calf was performed using grayscale, color, and spectral Doppler ultrasound assessing for complete compressibility and normal flowcharacteristics. FINDINGS: Common femoral vein: Patent. No thrombosis. Femoral vein: Patent. No thrombosis. Popliteal vein: Patent. No thrombosis. Gastrocnemius veins: The visualized portions are patent without evidence of thrombosis. Peroneal veins: Not visualized. Posterior tibial veins: The visualized portions are patent without evidence of thrombosis. Contralateral common femoral vein: Patent. No thrombosis. OTHER FINDINGS: Daniels's cyst measuring 5.4 x 1.6 x 4.2 cm. Prominent lymph node in the right groin. IMPRESSION: No evidence of deep venous thrombosis. WSN: [id number] Ordering Physician: Reena Winchester Dictated By: Leo Johnson MD Dictated Date/Time: 03/28/23 4:56 pm Reviewed By: Leo Johnson MD Signed By: Leo Johnson MD Signed Date/Time: 03/28/23 4:56 pm Transcribed By: LANE Transcribed Date/Time: 03/28/23 4:54 pm * Exam Date Time Procedure Performing Provider Status 03/28/23 12:18 PM Chest 2 Views Frontal and Lat Greer Shahid; Leighann (Verified) Notes: (Chest 2 Views Frontal and Lat) Reason For Exam: Cough RESULT: Chest 2 Views Frontal and Lat Chest 2 Views Frontal and Lat Hx of Present Illness: redness warmth RLE; Reason: Cough; Clinical Question(s): Pneumonia COMPARISON: None. FINDINGS: Slightly limited examination due to the patient's body habitus and underpenetration. LINES AND TUBES: None. LUNGS AND PLEURA: Clear lungs. Normal pulmonary vascularity. No pleural effusion. No pneumothorax. HEART, MEDIASTINUM AND MARGARET: Heart is normal in size. Normal mediastinal and hilar contour. BONES AND SOFT TISSUES: No acute abnormality. IMPRESSION: No definite acute cardiopulmonary disease is seen. WSN: [id number] Ordering Physician: Shannon Russell Dictated By: Tawanda Thompson MD, V Dictated Date/Time: 03/28/23 12:24 p Reviewed By: Tawanda Thompson MD, V Signed By: Tawanda Thompson MD, V Signed Date/Time: 03/28/23 12:24 pm Transcribed By: LANE Transcribed Date/Time: 03/28/23 12:21 pm Vital Signs Most recent to oldest [Reference Range]: 1 2 3 4 Height 158 cm (03/31/23 7:44 AM) 158 cm (03/30/23 4:08 AM) 158 cm (03/29/23 4:10 AM) Weight 127.9 kg (03/28/23 8:23 PM) 123 kg (03/28/23 11:52 AM) 123 kg (03/28/23 10:28 AM) 123 kg (03/28/23 10:28 AM) Oxygen Saturation [94-100 %] 92 % *L* (03/31/23 7:44 AM) 98 % (03/31/23 4:00 AM) 64 % *L* (03/30/23 7:00 PM) Pulse Rate [55-90 bpm] 68 bpm (03/31/23 7:44 AM) 62 bpm (03/31/23 4:00 AM) 65 bpm (03/30/23 7:00 PM) Body Mass Index [18.5-24.99 kg/m2] 51.23 kg/m2 *>HHI* (03/28/23 8:23 PM) 49.27 kg/m2 *>HHI* (03/28/23 11:52 AM) Blood Pressure [90-138/55-84 mm Hg] 113/73mm Hg (03/31/23 7:44 AM) 109/53mm Hg (03/31/23 4:00 AM) 123/61mm Hg (03/30/23 9:11 PM) Respiratory Rate [16-30 br/min] 18 br/min (03/31/23 7:44 AM) 18 br/min (03/31/23 6:06 AM) 18 br/min (03/31/23 5:06 AM) Temperature [96.8-100.4 DegF] 98.0 DegF (03/31/23 7:44 AM) 97.6 DegF (03/31/23 4:00 AM) 98.5 DegF (03/30/23 7:00 PM) Liters per Minute 0 L/min (03/31/23 7:44 AM) 2 L/min (03/29/23 4:10 AM) 2 L/min (03/28/23 8:23 PM) Mode of Delivery (Oxygen) Room air (03/31/23 7:44 AM) Room air (03/31/23 4:00 AM) Room air (03/30/23 7:00 PM) Blood pressure sites Arm, right (03/31/23 7:44 AM) Arm, right (03/31/23 4:00 AM) Arm, left (03/30/23 7:00 PM) Temperature Route Oral (03/31/23 7:44 AM) Oral (03/31/23 4:00 AM) Oral (03/30/23 7:00 PM) Dry Weight 127.9 kg (03/28/23 8:23 PM) 123 kg (03/28/23 10:28 AM) 123 kg (03/28/23 10:28 AM) Weight Obtained Via Standing scale (03/28/23 8:23 PM) Patient/family stated (03/28/23 11:52 AM) Dry Weight Obtained Via Standing scale (03/28/23 8:23 PM) Social History Social History Type Response Tobacco Use: 4 or less cigar ettes(less than 1/4 pack)/day in last 30 days. Interested in cessation: No. Sex Admission evaluation note * Ranulfo ARORA, Reena Edmond: PERFORM, MODIFY Event Display: Admission Note Authored Date: [id number] Patient: ??NORMA SMITH ? Age:??38 Years?Sex:??Female?:??1985?? Chief Complaint/Reason for Consultation cellulitis History of Present Illness 38-year-old female with a history of substance abuse maintained on methadone,??psychiatric history,hypothyroidism, GERD, asthma??presenting with recurrent??right lower extremity??swelling, erythema,and pain??with cough.?? Patient states??she is not actively use drugs??in about 4 to 6 months. ??She denies IV drug use.?? No, abrasions, bites to the right lower extremity that she knows of.?? States she gets cellulitis of the right lower extremity??often??and was told it was due to her shaving.??Symptoms started??4 days ago??and has been progressively getting worse. ??Her cough and sore throatwith a headache??has been ongoing for about 1 week. Pt states she has had fevers at home and take Ty lenol and ibuprofen for it.??Patient denying shortness of breath or chest pain. ?In the ED she has been afebrile and vitals have been stable.?? Her oxygen saturation drops down to upper 80s when patient is sleeping and improves when patient is awake.?? Due to this they put her on 2 L nasal cannula with good effect.?? Labs without leukocytosis, H&H stable.?Electrolytes within normal limits besides a sodium of 132. ??Glucose 119.?? Creatinine 1.3, BUN 19.?? Lactate 1.1.?? Flu, RSV, COVID-negative.?? Chest x-ray negative.?? She received IV vancomycin??and 1 L IV fluids in the ED. Review of Systems Constitutional:??Reports fever, chills. Eyes:??No visual changes ENT:??No reports sore throat Respiratory: Reports dry cough. No shortness of breath. Cardiovascular:??No chest pain, chest pressure or chest discomfort. No palpitations. Gastrointestinal:??No anorexia, nausea, vomiting or diarrhea. No abdominal pain or blood in stool. Genitourinary:??No burning micturition. No urinary frequency or incontinence. Neurologic:??No headache, dizziness, syncope, unilateral weakness, ataxia, numbness or tingling in the extremities. No change in bowel or bladder control. Musculoskeletal:??No muscle pain, back pain, joint pain or stiffness. Hematologic/Lymphatics:??No bleeding or bruising.?? Skin: Reports RLE swelling, pain, and redness. Objective Vital Signs?? Temperature: 98.4 DegF (03/28/23 10:28:00) Temperature Route: Oral (03/28/23 10:28:00) Pulse Rate: 76 bpm (03/28/23 14:53:00) Respiratory Rate: 18 br/min (03/28/23 14:53:00) Systolic Blood Pressure: 119 mm Hg (03/28/23 14:53:00) Diastolic Blood Pressure: 59 mm Hg (03/28/23 14:53:00) Blood pressure sites: Arm, left (03/28/23 14:53:00) Mean Arterial Pressure: 79 mm Hg (03/28/23 14:53:00) Pulse Pressure: 60 mm Hg (03/28/23 14:53:00) Oxygen Saturation: 96 % (03/28/23 14:53:00) Liters per Minute: 2 L/min (03/28/23 14:53:00) Mode of Delivery (Oxygen): Nasal cannula (03/28/23 14:53:00) ? Physical Exam Constitutional: Alert, in no distress. Mental Status: Oriented to person, place and time. Head: Normocephalic. Eyes: Pupils are equal, round and reactive to light. Extraocular muscles intact. Neck: Supple, Full range of motion. Respiratory: Clear to auscultation. No wheezing, rales or rhonchi. Cardiovascular: S1 S2 regular. No murmurs. Gastrointestinal: Abdomen soft, non-tender, non-distended. Normal bowel sounds.?? Neurologic: No focal neurological deficits. Moves all extremities spontaneously.?? Skin: RLE with nonpitting??edema,??erythema extending??from??ankle to below??knee, warm??to touch, and painful to??palpation. Musculoskeletal: No cyanosis or clubbing. No gross deformities. Normal range of motion. Psychiatric: Normal mood and affect Images r leg r leg r leg Assessment/Plan Assessment:??38-year-old female with a history of substance abuse maintained on methadone, psychiatric history, hypothyroidism, GERD, asthma presenting with recurrent right lower extremity swelling, erythema, and pain with cough. ?? Cellulitis, leg (L03.119):??Pt with recurrent RLE cellulitis. Has been having worsening redness, pain, and swelling to RLE. Similar to previous episodes. Denies IVDU in over 2 years. No other drug use in 4-6 months. On methadone. Reports fevers at home. States she has a DVT in the past. Labs unremarkable besides creatinine of 1.3. She received IV vancomycin and 1 L IV fluids in the ED. Plan -Stop IV vancomycin -Start PO doxycycline for MRSA coverage -Monitor for fevers -US LE to r/o DVT ?? Cough (R05.9):??Pt with sore throat, dry cough, and headache x 1 week. FLu, [id number], RSV negative.CXR negative. Her oxygen saturation drops down to upper 80s when patient is sleeping and improves when patient is awake. Due to this they put her on 2 L nasal cannula with good effect. Labs unremarkable. She is severely obese and desats happen when sleeping. Likely due to body habitus. Also increased methadone 2 weeks ago. Could be due to medication as well. No tachycardia or chest pain making PE less likely. No Signs of pneumonia or productive cough. No leukocytosis. Has hx of tobacco use and asthma. No wheezing on exam. Plan -Albuterol prn -Follow procalcitonin -Wean O2 as tolerated -Outpatient sleep study ?? KISHA (acute kidney injury) (N17.9):??Unsure pts baseline creatinine. 1.3 today. Received 1L IVF. Encourage PO fluids. Hold torsemide. Trend kidney function. Anxiety and depression (F41.9):??Currently living at skilled nursing house. Continue lamotrigine, pregabalin, and Xanax. Latuda not on formulary. Asthma (J45.909):??Continue albuterol prn Hypothyroidism (E03.9):??Continue levothyroxine Insomnia (G47.00):??Continue Zolpidem Substance abuse (F19.10):??Continue methadone. Not currently using. Denies NRT. ?? Diet: Regular VTE Prophylaxis:??Heparin subq Code Status:??Full Ongoing Medical Necessity:??RLE cellulitis, hypoxia Discharge Planning:??Pending workup above ?[id number] time: Physical exam, HPI, results/plan of care discussion 15 minutes.?? Total evaluation time: ED report, [id number] time,??chart review and documentation??55 minutes. Histories Allergies Allergies ?(Active and Proposed Allergies Only) Keflex? (Severity: Unknown severity, Onset: Unknown) ? Past Medical History/Problem List Active Problems??(1) Severe obesity Substance abuse hypothyroidism GERD Asthma ? Past Surgical History No surgery history ? Social History No alcohol use Hx of drug use Tobacco use ? Family History No family history ? Medications Home Medications Acetaminophen?500?Milligram?By Mouth?3 times a day?as needed?Pain , Moderate Albuterol (Ventolin 90 mcg Inhaler)?1?puff(s)?Inhalation?Every 4 hours Alprazolam?See Instructions?2mg at 5:30 AM, 1 mg at 12, 1mg at HS Aspirin (aspirin 81 mg oral delayed release tablet)?81?Milligram?1?tablet?By Mouth?Daily DiphenhydrAMINE?50?Milligram?By Mouth?Daily at bedtime?as needed?as needed for insomnia Doxazosin (doxazosin 2 mg oral tablet)?2?Milligram?1?tablet?By Mouth?Daily at bedtime Fluticasone Nasal (fluticasone 50 mcg/inh nasal spray)?2?spray(s)?Nares, Both?Daily in AM Ibuprofen?800?Milligram?By Mouth?3 times a day?as needed?Pain , Moderate Lamotrigine (lamotrigine 200 mg oral tablet)?See Instructions?2 tablets po qhsy Levothyroxine (levothyroxine 0.112 mg oral tablet)?1?tab(s)?112?Microgram?By Mouth?Daily lurasidone (lurasidone 80 mg oral tablet)?1?tab(s)?80?Milligram?By Mouth?Daily Methadone?190?Milligram?By Mouth?Daily?At 5:30 AM Omeprazole (omeprazole 20 mg oral delayed release tablet)?1?tab(s)?20?Milligram?By Mouth?Daily Potassium Chloride (Potassium Chloride (Oxq-Fcmn-Brb 10))?20?Milliequivalent?By Mouth?Daily Pregabalin?300?Milligram?By Mouth?2 times a day Promethazine?25?Milligram?By Mouth?as needed?as needed for nausea/vomiting torsemide (torsemide 20 mg oral tablet)?2?tab(s)?40?Milligram?By Mouth?Daily?2tabs AM, 1 tab evening Triamcinolone?Once Zolpidem?10?Milligram?By Mouth?Daily at bedtime ? Results Recent Labs BLOOD COUNT & DIFF WBC 9.0 k/mm3 ()?? 03/28/2023 11:18 RBC 4.00 m/mm3 (Low)?? 03/28/2023 11:18 Hgb 10.4 Gm/dL (Low)?? 03/28/2023 11:18 Hct 32.7 % (Low)?? 03/28/2023 11:18 MCV 81.8 femtoliters ()?? 03/28/2023 11:18 MCH 26.0 pg (Low)?? 03/28/2023 11:18 MCHC 31.8 g/dL (Low)?? 03/28/2023 11:18 Platelet Count 255 k/mm3 ()?? 03/28/2023 11:18 RDW-SD 50.1 femtoliters (High)?? 03/28/2023 11:18 MPV 11.1 femtoliters ()?? 03/28/2023 11:18 Nucleated RBC (Automated) 0.0 #/100 WBC'S ()?? 03/28/2023 11:18 Abs. NRBC 0.0 k/mm3 ()?? 03/28/2023 11:18 Abs. Neut 7.5 k/mm3 (High)?? 03/28/2023 11:18 Abs. Lymph 1.0 k/mm3 ()?? 03/28/2023 11:18 Abs. [place] 0.3 k/mm3 (Low)?? 03/28/2023 11:18 Abs. Eo 0.0 k/mm3 ()?? 03/28/2023 11:18 Abs. Baso 0.0 k/mm3 ()?? 03/28/2023 11:18 Neut % 83.3 % (High)?? 03/28/2023 11:18 Lymph % 11.2 % (Low)?? 03/28/2023 11:18 [place] % 3.6 % (Low)?? 03/28/2023 11:18 Eos % 0.4 % ()?? 03/28/2023 11:18 Baso % 0.2 % ()?? 03/28/2023 11:18 Imm Gran 1.3 % ()?? 03/28/2023 11:18 Abs. Imm Gran 0.1 k/mm3 ()?? 03/28/2023 11:18 ?? CHEM GENERAL Sodium 132 mmol/L (Low)?? 03/28/2023 11:18 Potassium 4.0 mmol/L ()?? 03/28/2023 11:18 Chloride 98 mmol/L ()?? 03/28/2023 11:18 Bicarbonate Level 26 mmol/L ()?? 03/28/2023 11:18 Anion Gap 8 ()?? 03/28/2023 11:18 Glucose Level 119 mg/dL (High)?? 03/28/2023 11:18 BUN 19 mg/dL ()?? 03/28/2023 11:18 Creatinine-Blood 1.3 mg/dL (High)?? 03/28/2023 11:18 Estimated GFR Creatinine 55 ML/MIN/1.73 M2 ()?? 03/28/2023 11:18 Magnesium 2.1 mg/dL ()?? 03/28/2023 11:18 Lactate 1.1 mmol/L ()?? 03/28/2023 11:18 ?? HEME OTHER Hold Blue Top SPECIMEN DISCARDED AFTER 4 HOURS. ()?? 03/28/2023 11:18 ?? MISC. CHEMISTRY Hold Green Top SPECIMEN DISCARDED AFTER 1 WEEK ()?? 03/28/2023 11:18 Hold Gel Top SPECIMEN DISCARDED AFTER 1 WEEK ()?? 03/28/2023 11:18 ?? URINE OTHER Est Creatinine Clearance 47.76 mL/min ()?? 03/28/2023 12:10 ?? VIROLOGY Influenza A PCR NEGATIVE ()?? 03/28/2023 11:35 Influenza B PCR NEGATIVE ()?? 03/28/2023 11:35 RSV PCR NEGATIVE ()?? 03/28/2023 11:35 COVID-19 PCR Specimen Source NASAL ()?? 03/28/2023 11:35 COVID-19 PCR Result NEGATIVE ()?? 03/28/2023 11:35 ? Urinalysis Est Creatinine Clearance: 47.76 mL/min (12:10) ?? Microbiology ?? COVID-19, RSV, and Flu A/B, Rapid PCR?? Completed?? Source: Nasal Body Site: Nose Collected Dt/Tm: 03/28/2023 10:45 Last Updated Dt/Tm: 03/28/2023 12:24 ? Imaging(s) ?Chest 2 Views Frontal and Lat ?? 03/28/2023 12:18??by Jay GALVIN, Tawanda V ? No definite acute cardiopulmonary disease is seen. ? Hospital Progress note * Debra Cantu MD: PERFORM, VERIFY, SIGN Event Display: Progress Note Hospital Authored Date: [id number] Patient: NORMA SMITH Age: 38 years Sex: Female : 1985 Associated Diagnoses: None Author: Debra Cantu MD 03/31/2023 To Whom it May Concern It is to certify that Mrs.Jessica Smith has been admitted to [facility] from 03/28/23-03/31/23 for medical condition. She should keep her leg elevated while sitting and resting to recover from current medical condition. Please feel free to contact me if you have any concern. Ja Cantu MD * Mally Lao RN: VERIFY, PERFORM, SIGN Event Display: Progress Note Hospital Authored Date: Patient: NORMA SMITH Age: 38 years Sex: Female : 1985 Associated Diagnoses: None Author: Mally Lao RN Findings Problem Related to Alteration in Integumentary : Alteration in Integumentary/new 03/31/2023 9:00 EST Alteration in Integumentary Related to Cellulitis Goals & Outcomes, Integumentary Pt will maintain intact skin integrity Interventions, Integumentary Keep bed as flat as tolerated to reduce shearing, Keep linen clean, dry and wrinkle free, Keep skin clean & dry BH Goals/Interventions, Integumentary Yes Integumentary, Problem Start 03/28/2023 21:47 Reviewed plan with, Integumentary Patient Patient Progression, Integumentary Pt progressing according to plan . Nursing Data Activity Data : Activity Data 03/31/2023 9:00 EST Activity Status ADL Ambulating in mitchell Activity Assistance Independent Ambulation Distance ft 50feet Ambulation Patient Effort Good Ambulatory devices needed Cane . Integumentary Data. : Integumentary Data. 03/31/2023 9:37 EST Sensory Perception No impairment Moisture Rarely moist Activity Walks occasionally Mobility Slightly limited Nutrition Adequate Friction and Shear No apparent problem Lasha Score 20 Nursing Care Plan initiated/updated Yes . Evaluation patient is alert and orieted up ad job kepping leg elevated as much as possible while in bed . on oral antibiotics plan for discharge today . * Disha Clement RN: PERFORM, SIGN, VERIFY Event Display: Progress Note Hospital Authored Date: Patient: NORMA SMITH Age: 38 years Sex: Female : 1985 Associated Diagnoses: None Author: Disha Clement RN Findings Problem Related to Alteration in Integumentary : Alteration in Integumentary/new 03/31/2023 2:00 EST Alteration in Integumentary Related to Cellulitis Goals & Outcomes, Integumentary Pt will maintain intact skin integrity Interventions, Integumentary Interdisciplinary consults as appropriate, Keep linen clean, dry and wrinkle free, Keep skin clean & dry, Minimize friction, shear and moisture, Monitor reddened areas for continued or increasing reddness, Record extent of impaired skin integrity, Teach Pt/caregivers/s of infection, Teach Pt/S.O. risks of & measures to prevent skin breakdown BH Goals/Interventions, Integumentary Yes Integumentary, Problem Start 03/28/2023 21:47 Reviewed plan with, Integumentary Patient Patient Progression, Integumentary Pt progressing according to plan . Nursing Data Vital Signs : VITAL SIGNS SECTION 03/30/2023 19:00 EST Temperature 98.5 DegF Temperature Route Oral Pulse Rate 65 bpm Respiratory Rate 18 br/min Systolic Blood Pressure 99 mm Hg Diastolic Blood Pressure 64 mm Hg Blood pressure sites Arm, left Pulse Pressure 35 mm Hg Oxygen Saturation 64 % L Mode of Delivery (Oxygen) Room air . Narrative/Incidental Patient A&Ox4; resting in bed NAD. Patient upset states they need to figure out what is going on, this keeps happening . Reinforcing education about cellulitis. Tussin DM given for non-productive cough with + effect. +4 edema to right lower extremity, redness appears improved from marking/ picture from admission in chart. Continues PO abx. Ambulating independently to bathroom with steady gait, continues refusing SQ heparin. Bed in low, locked position & call-giang in reach. . Note * Mally Lao RN: PERFORM Event Display: Discharge/Transfer Note Hospital Authored Date: Nursing Discharge Note Entered On: 03/31/2023 10:51 EST Performed On: 03/31/2023 10:50 EST by Mally Lao RN Nursing Discharge Note 2 Discharge Time : 03/31/2023 10:51 EST Discharge Level of Care at Discharge : Home/Halfway/Foster Care Patient Left Unit Via : Wheelchair Patient Accompanied Off Unit with : Responsible adult DC Instructions Provided & Signed by Pt : Yes Patient Understands D/C Instructions : Yes Patient Instructions Discharge Signed : Yes Did Pt have Specialty Bed or Wound Vac : No Mally Lao RN - 03/31/2023 10:50 EST * Pepe GALVIN, Debra: PERFORM Event Display: Discharge/Transfer Note Hospital Authored Date: [id number] Patient: ??NORMA SMITH ? Age:??38 Years?Sex:??Female?:??1985?? Patient Information Discharge Location: Med Surg Primary Care Physician: Not on Staff, PCP Admit Date/Time: 03/28/23 13:23 Discharge Disposition Discharge Disposition: Home: No Services Discharge Diagnosis KISHA (acute kidney injury) (N17.9) Anxiety and depression (F41.9) Asthma (J45.909) Cellulitis, leg (L03.119) Cough (R05.9) Hypothyroidism (E03.9) Insomnia (G47.00) Substance abuse (F19.10) ?? _ Discharge Medications Acetaminophen?500?Milligram?By Mouth?3 times a day?as needed?Pain , Moderate Albuterol (Ventolin 90 mcg Inhaler)?1?puff(s)?Inhalation?Every 4 hours Alprazolam?See Instructions?2mg at 5:30 AM, 1 mg at 12, 1mg at HS Amoxicillin-Clavulanate (amoxicillin-clavulanate 875 mg-125 mg oral tablet)?1?tab(s)?By Mouth?2 times a day?for 7?Days Aspirin (aspirin 81 mg oral delayed release tablet)?81?Milligram?1?tablet?By Mouth?Daily Bacitracin Topical (bacitracin topical 500 u/gm ointment)?1?julio cesar?Topically?3 times a day?for 7?Days?apply to affected skin on right lower extrimity. DiphenhydrAMINE?50?Milligram?By Mouth?Daily at bedtime?as needed?as needed for insomnia Doxazosin (doxazosin 2 mg oral tablet)?2?Milligram?1?tablet?By Mouth?Daily at bedtime Doxycycline (doxycycline monohydrate 100 mg oral tablet)?100?Milligram?By Mouth?Every 12 hours?for 7?Days Fluticasone Nasal (fluticasone 50 mcg/inh nasal spray)?2?spray(s)?Nares, Both?Daily in AM Lamotrigine (lamotrigine 200 mg oral tablet)?See Instructions?2 tablets po qhsy Levothyroxine (levothyroxine 0.112 mg oral tablet)?1?tab(s)?112?Microgram?By Mouth?Daily lurasidone (lurasidone 80 mg oral tablet)?1?tab(s)?80?Milligram?By Mouth?Daily Methadone?190?Milligram?By Mouth?Daily?At 5:30 AM Omeprazole (omeprazole 20 mg oral delayed release tablet)?1?tab(s)?20?Milligram?By Mouth?Daily Pregabalin?300?Milligram?By Mouth?2 times a day Promethazine?25?Milligram?By Mouth?as needed?as needed for nausea/vomiting torsemide (torsemide 20 mg oral tablet)?2?tab(s)?40?Milligram?By Mouth?Daily?2tabs AM, 1 tab evening Triamcinolone?Once Zolpidem?10?Milligram?By Mouth?Daily at bedtime ? Medications Started ?? Doxycycline (doxycycline monohydrate 100 mg oral tablet)?100?Milligram?By Mouth?Every 12 hours?for 7?Days. Amoxicillin-Clavulanate (amoxicillin-clavulanate 875 mg-125 mg oral tablet)?1?tab(s)?By Mouth?2 times a day?for 7?Days. Bacitracin Topical (bacitracin topical 500 u/gm ointment)?1?julio cesar?Topically?3 times a day?for 7?Days?apply to affected skin on right lower extremity. Medications Discontinued None. Doses Changed None. Allergies Allergies ?(Active and Proposed Allergies Only) Keflex? (Severity: Unknown severity, Onset: Unknown) ? Hospital Course ?38-year-old female with a history of substance abuse maintained on methadone, psychiatric history, hypothyroidism, GERD, asthma presenting with recurrent right lower extremity swelling, erythema, and pain with cough.? Cellulitis, leg (L03.119): Pt with recurrent RLE cellulitis. Has been having worsening redness, pain, and swelling to RLE. Similar to previous episodes. Denies IVDU in over 2 years. No other drug use in 4-6 months. On methadone. Reports fevers at home.States she has a DVT in the past. Labs unremarkable besides creatinine of 1.3. Ultrasound Doppler right lower extremity was done which ruled out DVT. RLE erythema has improved but still very much redness present. Overall improving ?Plan Got treated with??IV vancomycin??and Ancef.??patient has a documented allergy to Keflex in the past, no allergies to Ancef thus far. Clinically much improved. Will switch to Po Doxycycline and Augmentin??for 7 days along with topical bacitracin. US LE to r/o DVT ? Cough (R05.9): pt with sore throat, dry cough, and headache x 1 week. FLu, [id number], RSV negative. CXR negative. Patient initially??was placed on 2 L??via nasal cannula however weaned off. We noticedthat she would mainly be hypoxic during the night/sleeping??given her??body habitus and morbid obesity I am??Concerned for??possible sleep apnea. Currently saturating well on room air. ?-Albuterol prn ?-Outpatient sleep study ? KISHA (acute kidney injury) (N17.9):??Improved, resolved. Restarted torsemide. ??Anxiety and depression (F41.9): Currently living at skilled nursing house. Continue lamotrigine, pregabalin, and Xanax. Latuda not on formulary. ??Asthma (J45.909): Continue albuterol prn ??Hypothyroidism (E03.9): Continue levothyroxine ??Insomnia (G47.00): Continue Zolpidem ??Substance abuse (F19.10): Continue methadone. Not currently using and ilicit drugs.. Denies NRT. ? Objective Measurements?? Height: 158 cm (03/31/23) Weight: 127.9 kg (03/28/23) Dry Weight: 127.9 kg (03/28/23) Body Mass Index:??51.23 kg/m2??Critical (03/28/23) ? Vital Signs?? Temperature: 98 DegF (03/31/23 07:44:00) Temperature Route: Oral (03/31/23 07:44:00) Pulse Rate: 68 bpm (03/31/23 07:44:00) Respiratory Rate: 18 br/min (03/31/23 07:44:00) Systolic Blood Pressure: 113 mm Hg (03/31/23 07:44:00) Diastolic Blood Pressure: 73 mm Hg (03/31/23 07:44:00) Blood pressure sites: Arm, right (03/31/23 07:44:00) Mean Arterial Pressure: 86 mm Hg (03/31/23 07:44:00) Pulse Pressure: 40 mm Hg (03/31/23 07:44:00) Oxygen Saturation:??92 %??Low (03/31/23 07:44:00) Liters per Minute: 0 L/min (03/31/23 07:44:00) Mode of Delivery (Oxygen): Room air (03/31/23 07:44:00) Early Warning Score: 2 (03/31/23 07:46:31) ? . Physical Exam ?? General: Lying comfortably in bed,no evident distress Cardiac: S1 + S2 + 0, no murmurs heard Respiratory: CTA, No wheezes, Rales or crackles heard Abdomen: soft, nondistended, nontender Extremities: RLE mild erythema and swelling. Neurological: AO X3,cranial nerves grossly normal? Pending Results Blood Culture ordered on 03/28/2023 Blood Culture #2 ordered on 03/28/2023 Patient Education Titles Discharge Instructions for Cellulitis?? Follow-Up Appointments Added Follow Up ?Time Frame ?Comments Not on Staff, PCP?2 to 3 weeks Post Discharge Care Discharge ?Rx sent to [facility], 03/31/23 9:15:00 [facility] Home Health Face to Face ^HomeHealthFTF Results Discharge Labs BLOOD COUNT & DIFF WBC 6.9 k/mm3 ()?? 03/29/2023 05:25 RBC 4.00 m/mm3 (Low)?? 03/29/2023 05:25 Hgb 10.2 Gm/dL (Low)?? 03/29/2023 05:25 Hct 33.3 % (Low)?? 03/29/2023 05:25 MCV 83.3 femtoliters ()?? 03/29/2023 05:25 MCH 25.5 pg (Low)?? 03/29/2023 05:25 MCHC 30.6 g/dL (Low)?? 03/29/2023 05:25 Platelet Count 233 k/mm3 ()?? 03/29/2023 05:25 RDW-SD 52.0 femtoliters (High)?? 03/29/2023 05:25 MPV 11.6 femtoliters ()?? 03/29/2023 05:25 Nucleated RBC (Automated) 0.0 #/100 WBC'S ()?? 03/29/2023 05:25 Abs. NRBC 0.0 k/mm3 ()?? 03/29/2023 05:25 Abs. Neut 7.5 k/mm3 (High)?? 03/28/2023 11:18 Abs. Lymph 1.0 k/mm3 ()?? 03/28/2023 11:18 Abs. [place] 0.3 k/mm3 (Low)?? 03/28/2023 11:18 Abs. Eo 0.0 k/mm3 ()?? 03/28/2023 11:18 Abs. Baso 0.0 k/mm3 ()?? 03/28/2023 11:18 Neut % 83.3 % (High)?? 03/28/2023 11:18 Lymph % 11.2 % (Low)?? 03/28/2023 11:18 [place] % 3.6 % (Low)?? 03/28/2023 11:18 Eos % 0.4 % ()?? 03/28/2023 11:18 Baso % 0.2 % ()?? 03/28/2023 11:18 Imm Gran 1.3 % ()?? 03/28/2023 11:18 Abs. Imm Gran 0.1 k/mm3 ()?? 03/28/2023 11:18 ?? CHEM GENERAL Sodium 136 mmol/L ()?? 03/30/2023 05:30 Potassium 4.0 mmol/L ()?? 03/30/2023 05:30 Chloride 103 mmol/L ()?? 03/30/2023 05:30 Bicarbonate Level 24 mmol/L ()?? 03/30/2023 05:30 Anion Gap 9 ()?? 03/30/2023 05:30 Glucose Level 145 mg/dL (High)?? 03/30/2023 05:30 BUN 7 mg/dL ()?? 03/30/2023 05:30 Creatinine-Blood 0.7 mg/dL ()?? 03/31/2023 05:18 Estimated GFR Creatinine 115 ML/MIN/1.73 M2 ()?? 03/31/2023 05:18 Calcium 8.5 mg/dL (Low)?? 03/30/2023 05:30 Magnesium 2.1 mg/dL ()?? 03/28/2023 11:18 Lactate 1.1 mmol/L ()?? 03/28/2023 11:18 ?? HEME OTHER Hold Lavender Top SPECIMEN DISCARDED AFTER 24 HOURS. ()?? 03/31/2023 05:18 Hold Blue Top SPECIMEN DISCARDED AFTER 4 HOURS. ()?? 03/28/2023 11:18 ?? MISC. CHEMISTRY Hold Green Top SPECIMEN DISCARDED AFTER 1 WEEK ()?? 03/28/2023 11:18 Hold Gel Top SPECIMEN DISCARDED AFTER 1 WEEK ()?? 03/28/2023 11:18 ?? TOXICOLOGY/TDM Vancomycin Level, Trough 12.4 mg/L ()?? 03/30/2023 12:13 ? URINE OTHER Est Creatinine Clearance 88.70 mL/min ()?? 03/31/2023 06:29 ? VIROLOGY Influenza A PCR NEGATIVE ()?? 03/28/2023 11:35 Influenza B PCR NEGATIVE ()?? 03/28/2023 11:35 RSV PCR NEGATIVE ()?? 03/28/2023 11:35 COVID-19 PCR Specimen Source NASAL ()?? 03/28/2023 11:35 COVID-19 PCR Result NEGATIVE ()?? 03/28/2023 11:35 ? 35_ minutes spent on discharge * Deb Beasley RN: PERFORM Event Display: Patient Education/Instruction Authored Date: [id number] Inpatient Adult Discharge Instructions [address] [address] Name: NORMA SMITH : 1985 Visit: 03/28/2023 13:23:00 Current Date: 03/31/2023 10:08 Account: [id number] Inpatient Adult Discharge Instructions We would like to thank you for allowing us to assist you with your healthcare needs. The following includes patient education materials and information regarding your injury/illness. Our entire staffstrives to provide an excellent experience for our patients and their families. PLEASE ENSURE YOU FOLLOW-UP PER THE INSTRUCTIONS BELOW! ?? YOUR OPINION IS IMPORTANT TO US! Please complete the survey you may receive by mail or email. Your feedback will be used to make improvements to the healthcare experiences of our patients and their families. Surveys are administered by [employer] ?? If further treatment with your primary care physician or another doctor is recommended, it is important for you to keep the appointment. Call your primary care physician or return to the Emergency Department immediately if your condition worsens, fails to improve, or new symptoms develop. If you need to find a doctor, you can call [facility] [employer] for a referral at [phone] or toll free at [phone]) or log in to [email or web address].. ?? [facility], in keeping with [facility] guidance, no longer requires face masks for staff, patientsor visitors in most situations. Similiar to time spent indoors at other locations, there is the chance that you were exposed to repiratory viruses during your time with us (such as flu or COVID-19). If you develop symptoms concerning for a viral respiratory infection, please seek testing (and treatment if indicated) from your medical provider or home test kit. ?? You can view and manage your care through the patient portal or by using a health care julio cesar of your choosing. [email or web address] is a website that allows you to securely view your medical information including your hospital discharge summary, office visit summaries, medications and follow-up visits. You can also request appointments, renew medications, and request access to your medical information using a health care julio cesar of your choosing, or just ask a question. You can enroll at [email or web address] or register during your next office visit. You have been discharged from [facility], Patient Care Unit: Med Surg. If you have any questions regarding these instructions after you leave, please call us and we will be happy to assist you. [facility] Your Care Team Attending Physician Debra Cantu MD Discharging Providers Debra Cantu MD Reason for Admission cellulitis Your Diagnosis Cellulitis, leg Cough KISHA (acute kidney injury) Anxiety and depression Insomnia Hypothyroidism Asthma Substance abuse Tests Performed Below is a partial list of the tests performed during your hospitalization. You may have had other tests and procedures not included in this list. Please discuss all test results with your provider. Basic Metabolic Panel BUN Calcium Level CBC CBC w/ Differential COVID-19, RSV, and Flu A/B, Rapid PCR Creatinine Electrolytes Glucose Level HOLD BLUE TUBE HOLD GEL TUBE HOLD GREEN TUBE HOLD LAVENDER TUBE Lactic Acid Level Magnesium Level Vancomycin Trough Venous Doppler Ext Lower Right (US) XR Chest 2 Views Frontal and Lat Primary Care Provider Not on Staff, PCP Advance Directive Health Care Proxy on File No Patient refuses to discuss Discharge Vitals Temperature: 98 DegF Height: 158 cm Pulse Rate: 68 bpm Weight: 127.9 kg Respiratory Rate: 18 br/min Body Mass Index:??51.23 kg/m2??Critical Systolic Blood Pressure: 113 mm Hg Body surface area: 2.37 Diastolic Blood Pressure: 73 mm Hg ?? Oxygen Saturation:??92 %??Low ?? Studies Pending All tests and labs ordered during this hospital stay have been completed unless listed below. Please discuss all pending results with your provider listed above in these instructions. ?? Blood Culture Blood Culture #2 What to do next Instructions From Your Doctor Discharge Orders You Need to Schedule the Following Appointments Follow Up with??Not on Staff, PCP When:??Within 2 to 3 weeks Discharge Medications NORMA SMITH :1985 Visit Date:03/28/2023 Medications: Please continue your medications until treatment is completed or stopped by your provider. Medications not listed below should be discontinued. Discuss any questions related to medications with your provider. What How Much When Instructions Next Dose New Amoxicillin-Clavulanate (amoxicillin-clavulanate 875 mg-125 mg oral tablet) 1 tab(s) Oral Twice a day Duration: 7 Days Pickup at [facility] #[id number] tonight 8 pm New Bacitracin Topical (bacitracin topical 500 u/ gm ointment) 1 julio cesar Topically 3 times a day Duration: 7 Days apply to affected skin on right lower extremity. ?? Pickup at [facility] #[id number] next dose 3pm and 8 pm New Doxycycline (doxycycline monohydrate 100 mg oral tablet) 100 Milligram Oral Every 12 hours Duration: 7 Days Pickup at [facility] #[id number] tomorrow morning Unchanged Acetaminophen 500 Milligram Oral 3 times a day as needed for Pain , Moderate as needed for pain Unchanged Albuterol (Ventolin 90 mcg Inhaler) 1 puff(s) Inhalation Every 4 hours as needed Unchanged Alprazolam See instructions 2mg at 5:30 AM, 1 mg at 12, 1mg at HS ?? next dose at noon Unchanged Aspirin (aspirin 81 mg oral delayed release tablet) 1 tab(s) Oral Daily tomorrow morning Unchanged DiphenhydrAMINE 50 Milligram Oral Daily at Bedtime as needed for as needed for insomnia as needed Unchanged Doxazosin (doxazosin 2 mg oral tablet) 1 tab(s) Oral Daily at Bedtime tonight at 8pm Unchanged Fluticasone Nasal (fluticasone 50 mcg/ inh nasal spray) 2 spray(s) Nares, Both Daily in the morning tomorrow morning Unchanged Lamotrigine (lamotrigine 200 mg oral tablet) See instructions 2 tablets po qhsy ?? tonight 8pm Unchanged Levothyroxine (levothyroxine 0.112 mg oral tablet) 1 tab(s) Oral Daily tomorrow morning Unchanged lurasidone (lurasidone 80 mg oral tablet) 1 tab(s) Oral Daily tomorrow morning Unchanged Methadone 190 Milligram Oral Daily At 5:30 AM ?? resume home schedule Unchanged Omeprazole (omeprazole 20 mg oral delayed release tablet) 1 tab(s) Oral Daily tomorrow morning Unchanged Pregabalin 300 Milligram Oral Twice a day tonight 8pm Unchanged Promethazine 25 Milligram Oral As needed for as needed for nausea/vomiting as needed Unchanged torsemide (torsemide 20 mg oral tablet) 2 tab(s) Oral Daily 2 tabs AM, 1 tab evening ?? next dose at 8pm Unchanged Triamcinolone Once resume home schedule Unchanged Zolpidem 10 Milligram Oral Daily at Bedtime tonight 8pm Pharmacy Information [facility] #[id number]: [address], [place] [id number] [phone] ?? What How Much When Comments Stop Taking Ibuprofen 800 Milligram Oral 3 times a day as needed for Pain , Moderate Stop Taking Potassium Chloride (Potassium Chloride ([id number])) 20 Milliequivalent Oral Daily Test Results Below is a partial list of the most recent Laboratory test results done prior to this discharge. You may have had other tests and procedures not included in this list. Please discuss all test resultswith your provider. Est Creatinine Clearance - 88.70 mL/min (03/31/2023) Basic Metabolic Panel (03/30/2023) ???Sodium - 136 mmol/L???Potassium - 4.0 mmol/L???Chloride - 103 mmol/L???Bicarbonate Level - 24 mmol/L???Anion Gap - 9???Glucose Level - 145 mg/dL???BUN - 7 mg/dL???Creatinine-Blood - 0.6 mg/dL???Estimated GFR Creatinine - 119 ML/MIN/1.73 M2???Calcium - 8.5 mg/dL BUN (03/29/2023) ???BUN - 11 mg/dL Calcium Level (03/29/2023) ???Calcium - 8.7 mg/dL CBC (03/29/2023) ???WBC - 6.9 k/mm3???RBC - 4.00 m/mm3???Hgb - 10.2 Gm/dL???Hct - 33.3 %???MCV - 83.3 femtoliters???MCH - 25.5 pg???MCHC - 30.6 g/dL???Platelet Count - 233 k/mm3???RDW-SD - 52.0 femtoliters???MPV - 11.6 femtoliters???Nucleated RBC (Automated) - 0.0 #/100 WBC'S???Abs. NRBC - 0.0 k/mm3 CBC w/ Differential (03/28/2023) ???WBC - 9.0 k/mm3???RBC - 4.00 m/mm3???Hgb - 10.4 Gm/dL???Hct - 32.7 %???MCV - 81.8 femtoliters???MCH - 26.0 pg???MCHC - 31.8 g/dL???Platelet Count - 255 k/mm3???RDW-SD - 50.1 femtoliters???MPV - 11.1 femtoliters???Nucleated RBC (Automated) - 0.0 #/100 WBC'S???Abs. NRBC - 0.0 k/mm3???Abs. Neut - 7.5 k/mm3???Abs. Lymph - 1.0 k/mm3???Abs. [place] - 0.3 k/mm3???Abs. Eo - 0.0 k/mm3???Abs. Baso - 0.0 k/mm3???Neut % - 83.3 %???Lymph % - 11.2 %???[place] % - 3.6 %???Eos % - 0.4 %???Baso % - 0.2 %???Imm Gran - 1.3 %???Abs. Imm Gran - 0.1 k/mm3 COVID-19, RSV, and Flu A/B, Rapid PCR (03/28/2023) ???Influenza A PCR - NEGATIVE???Influenza B PCR - NEGATIVE???RSV PCR - NEGATIVE???COVID-19 PCR Specimen Source - NASAL???COVID-19 PCR Result - NEGATIVE Creatinine (03/31/2023) ???Creatinine-Blood - 0.7 mg/dL???Estimated GFR Creatinine - 115 ML/MIN/1.73 M2 Electrolytes (03/29/2023) ???Sodium - 135 mmol/L???Potassium - 4.0 mmol/L???Chloride - 102 mmol/L???Bicarbonate Level - 24 mmol/L???Anion Gap - 9 Glucose Level (03/29/2023) ???Glucose Level - 133 mg/dL HOLD BLUE TUBE (03/28/2023) ???Hold Blue Top - SPECIMEN DISCARDED AFTER 4 HOURS. HOLD GEL TUBE (03/28/2023) ???Hold Gel Top - SPECIMEN DISCARDED AFTER 1 WEEK HOLD GREEN TUBE (03/28/2023) ???Hold Green Top - SPECIMEN DISCARDED AFTER 1 WEEK HOLD LAVENDER TUBE (03/31/2023) ???Hold Lavender Top - SPECIMEN DISCARDED AFTER 24 HOURS. Lactic Acid Level (03/28/2023) ???Lactate - 1.1 mmol/L Magnesium Level (03/28/2023) ???Magnesium - 2.1 mg/dL Vancomycin Trough (03/30/2023) ???Vancomycin Level, Trough - 12.4 mg/L Allergies (NKA means No Known Allergies) Keflex Problems Active Problems??(1) Severe obesity?? Education Materials Below is the list of Educational Leaflet Providered with your Discharge Instructions. Discharge Instructions for Cellulitis?? Valuables and Belongings I fully understand and agree that [facility] accepts no responsibility for all my personal property including clothing, toilet articles, radios, jewelry, dentures, hearing aids, rings, money, or any other property that is in my possession or is brought to me after admission. I understand certain valuables may be placed in a hospital safe for a short period of time. I understand that the hospital is not liable for loss or damage due to accident, fire, or other natural occurrence while said property is in the safe. I accept full responsibility for any personal property that I keep with me, and will not hold the hospital responsible in case of loss or disappearance. I acknowledge that i have been encouraged to send valuables and belongings home. ?? Review of Valuable and Belonging List: With patient, With witness Date for Pt to Sign Valuables/Belongings: 03/28/23 13:22:00 ?? Other Discharge Information ? Pulmonary Rehab Status?? Pulmonary Rehab Discharge Status?? Respiratory Rate: 18 br/min ? Common Emergency Awareness Tips IS IT A STROKE? Act FAST and Check for these signs: FACE Does the face look uneven? ARM Does one arm drift down? SPEECH Does their speech sound strange? TIME Call at any sign of stroke ?? Heart Attack Signs Chest discomfort: Most heart attacks involve discomfort in the center of the chest and lasts more than a few minutes, or goes away and comes back. It can feel like uncomfortable pressure, squeezing, fullness or pain. Discomfort in upper body: Symptoms can include pain or discomfort in one or both arms, back, neck, jaw or stomach. Shortness of breath: With or without discomfort. Other signs: Breaking out in a cold sweat, nausea, or lightheaded. Remember, MINUTES DO MATTER. If you experience any of these heart attack warning signs, call to get immediate medical attention! ?? Smoking can increase your chances of developing chronic health problems and can cause harmful effects to other family members in your house. If you smoke, you are strongly encouraged to quit. Please call [facility] Link at [phone] or [phone] ([phone]) or log in to [email or web address] for referrals to smoking cessation programs. ?? 142 Suicide & Crisis Lifeline is available 09/12 if you or someone you know needs to find a reason to keep living. By calling 469 you'll be connected to a skilled, trained counselor at a crisis center in your area. INPATIENT DISCHARGE INSTRUCTIONS SIGNATURE PAGE NORMA SMITH Location:[facility] Registration Date and Time:03/28/2023 13:23 EST Primary Care Physician: Not on Staff, PCP Attending Physician: Pepe GALVIN, [facility], I NORMA SMITH, have received the above patient education materials/instructions and have verbalized understanding. If ambulance or transport services are being used I further acknowledge being given a choice of service. ?? If you need to contact me, please call me at this number: . Patient/Teacher Drama Name: Patient/Teacher Drama Signature: Relationship to Patient: Witness Name/Signature: Date: * Deb Beasley RN: PERFORM Event Display: Patient Education Leaflets Authored Date: [id number] Discharge Instructions for Cellulitis ?? [id number] Discharge Instructions for Cellulitis You have been diagnosed with cellulitis. This is an infection in the deepest layers of the skin. The infection may even spread to the muscle in some cases. Cellulitis is caused by bacteria. The bacteria can??enter the body through broken skin. This can happen with a cut, scratch, animal bite, or aninsect bite that has been scratched. You may have been treated in the hospital with antibiotics andfluids. You will likely be given a prescription for antibiotics to take at home. This sheet will help you take care of yourself at home. Home care When you are home: ??? Take the prescribed antibiotic medicine you are given as directed until it is gone. Take it even if you feel better. It treats the infection and stops it from returning. Not taking all the medicine can make future infections hard to treat. ??? Keep the infected area clean. Follow all wound careinstructions from your healthcare provider. ??? When possible, raise the infected area above the level of your heart. This helps keep swelling down. ??? Charles the boundary of the infected area so you can tell if it is growing. ??? Talk with your healthcare provider if you are in pain. Ask what kind of ouru-gyz-lwgpqdr medicine you can take for pain. ??? Apply clean bandages as advised. Dispose of dirty bandages in a plastic bag that is tied at the top. ??? Wash your hands often to prevent spreading the infection. Always wash your hands before and after cleaning the area. If anyone helps you with your care, have them do the same. ??? Take your temperature once a day for a week. In the future, wash your hands before and after you touch cuts, scratches, or bandages. This will help prevent infection.? When to call your healthcare provider Call your healthcare provider right away if you have any of the following: ??? The infection does not get better within 1 to 2 days after treatment starts ??? Trouble or pain when moving the joints above or below the infected area ??? Discharge or pus draining from the area ??? Fever??of??100.4??F (38??C) or higher, or as directed by your healthcare provider ??? Pain that gets worse in or around the infected? Redness that gets worse in or around the infected area,??particularly if the areaof redness expands to a wider area ??? Shaking chills ??? Swelling of the infected area ??? Vomiting ?? Last Reviewed Date: 2021 ?? [employer] All rights reserved. This information is not intended as a substitute for professional medical care. Always follow your healthcare professional's instructions. ?? * Disha Clement RN: PERFORM Event Display: Patient Education Leaflets Authored Date: [id number] Discharge Instructions for Cellulitis ?? [id number] Discharge Instructions for Cellulitis You have been diagnosed with cellulitis. This is an infection in the deepest layers of the skin. The infection may even spread to the muscle in some cases. Cellulitis is caused by bacteria. The bacteria can??enter the body through broken skin. This can happen with a cut, scratch, animal bite, or aninsect bite that has been scratched. You may have been treated in the hospital with antibiotics andfluids. You will likely be given a prescription for antibiotics to take at home. This sheet will help you take care of yourself at home. Home care When you are home: ??? Take the prescribed antibiotic medicine you are given as directed until it is gone. Take it even if you feel better. It treats the infection and stops it from returning. Not taking all the medicine can make future infections hard to treat. ??? Keep the infected area clean. Follow all wound careinstructions from your healthcare provider. ??? When possible, raise the infected area above the level of your heart. This helps keep swelling down. ??? Charles the boundary of the infected area so you can tell if it is growing. ??? Talk with your healthcare provider if you are in pain. Ask what kind of pslk-lss-jbbmyfp medicine you can take for pain. ??? Apply clean bandages as advised. Dispose of dirty bandages in a plastic bag that is tied at the top. ??? Wash your hands often to prevent spreading the infection. Always wash your hands before and after cleaning the area. If anyone helps you with your care, have them do the same. ??? Take your temperature once a day for a week. In the future, wash your hands before and after you touch cuts, scratches, or bandages. This will help prevent infection.? When to call your healthcare provider Call your healthcare provider right away if you have any of the following: ??? The infection does not get better within 1 to 2 days after treatment starts ??? Trouble or pain when moving the joints above or below the infected area ??? Discharge or pus draining from the area ??? Fever??of??100.4??F (38??C) or higher, or as directed by your healthcare provider ??? Pain that gets worse in or around the infected? Redness that gets worse in or around the infected area,??particularly if the areaof redness expands to a wider area ??? Shaking chills ??? Swelling of the infected area ??? Vomiting ?? Last Reviewed Date: 2021 ?? 7140-9695 [employer]. All rights reserved. This information is not intended as a substitute for professional medical care. Always follow your healthcare professional's instructions. ?? Patient Care team information Care Team Personnel Name: Not on Staff, PCP Position: [facility] Physician (General Medicine) Member Role: PCP Name: Shannon Torres Position: [facility] Associate Professional Member Role: ED Physician Processor Grain Address: Address: [address] [place] [address] Emergency [place], [place] [address] Name: Jeffy Wright Position: [facility] ED OA Member Role: Patient Care Provider Name: Katiana Martinez RN Position: [facility] ED RN W/OE and Tasks Member Role: Patient Care Provider Name: Dave GALVIN, Ned Rodriguez Position: [facility] ED Medicine MD Member Role: Referring Physician Address: Address: [address] [place] [id number]
--- OUTSIDE RECORDS SUMMARY | 2023-11-04 12:00 | XMS_ITS | Continuity of Care Document ---
Author Organization [facility] Address [address] [place] [address]- Care Team Providers Care Manager Resort Name Role Phone Not on Staff, PCP Primary Care Physician Unavail able Encounter [facility] Date(s): 06/14/23 - 06/15/[address] [address]- Discharge Disposition: A-D/C Home Attending Physician: Ned Acosta MD Admitting Physician: Ned Acosta MD Referring Physician: Not on Staff, Referring MD Allergies, Adverse Reactions, Alerts Substance Reaction [...] opioid drug. Start Date: 03/28/23 Status: Ordered aspirin 81 mg oral delayed release tablet 81 mg, 1, tablet, By Mouth, Daily, Maintenance, 03/28/23 16:08:00 EST, Partial fill upon patient request if the prescription is for a schedule II opioid drug. Start Date: 03/28/23 Status: Ordered DiphenhydrAMINE = 50 mg, By [...] opioid drug. Start Date: 03/28/23 Status: Ordered fluticasone 50 mcg/inh nasal spray 2 sprays, Nares, Both, Daily in AM, 0 Refills, Maintenance, 03/28/23 13:03:00 EST, [place], Partial fill upon patient request if the [...] opioid drug. Start Date: 03/28/23 Status: Ordered naproxen 500 mg oral tablet 1 tablet = 500 mg, By Mouth, 2 times a day, PRN Pain , Moderate, for 14 days, # 20 tablet, 0 Refills, Acute 06/28/23 22:50:00 EST, 06/14/23 22:50:00 EST, Tablet, [id number], Partial fill upon patient request if the prescription is for... Start Date: 06/14/23 Stop Date: 06/28/23 Status: Ordered omeprazole 20 mg oral delayed release tablet [...] EST, Inhaler Start Date: 03/28/23 Status: Ordered Walker See Instructions, # 1 each, Maintenance, 4-point, 2-wheeled walker. Use the walker whenever you arewalking to provide stability., 06/14/23 23:34:00 EST, Compound Start Date: 06/14/23 Status: Ordered Zolpidem = 10 mg, By Mouth, Daily at bedtime, 0 Refills, Maintenance, 03/28/23 13:09:00 EST, Partial fill upon patient request if the prescription is for a schedule II opioid drug. Start Date: 03/28/23 Status: Ordered Problem List Condition Confirmation Course Effective Dates Status Health [facility] Informant Severe obesity Confirmed Active Results Radiology Reports * Exam Date Time Procedure Performing Provider Status 06/14/23 9:[address] Lumbar Spine W/ Contrast [place] , Linda james T; Auth (Verified) Notes: (CT Lumbar Spine W/ Contrast) Reason For Exam: Back Pain RESULT: CT Lumbar Spine W/ Contrast CT Lumbar Spine W/ Contrast Hx of Present Illness: Patient lives in a drug rehab facility for the past year. Today patient states she was taking a nap and when she woke up she had right hip pain.; Reason: Back Pain; Clinical Question(s): Disc Space Infection CLINICAL QUESTION: Disc Space Infection TECHNIQUE: Thin section axial images were acquired through the lumbar spine and to the administration of 100 cc of Omnipaque 300 intravenously. Bone and soft tissue algorithms were reconstructed along with coronal and sagittal reformats. Weight-based protocol using automatic tube modulation was used to optimize exposure parameters. CTDIvol Body: 52.09 mGy, DLP Body: 2391 mGy*cm. COMPARISON: None FINDINGS: Project Surveyor View Findings, Lines and Tubes: None. Spine: No fractures or bone lesion. Normal alignment. The intervertebral disc spaces are preserved. No abnormal enhancement along the lumbar spine. There is mild degenerative change of the right sacroiliac joint with small osteophyte dorsally and vacuum phenomena. Mild sclerosis is seen along the iliac side of both sacroiliac joints. No discreteerosions along the sacroiliac joints. Soft tissues: No acute abnormality in the paravertebral soft tissues. Visualized aorta and kidneys appear unremarkable. Diffuse decreased density of the hepatic parenchyma, compatible with hepatic steatosis. IMPRESSION: Unremarkable lumbar spine. Preliminary radiology report issued by [facility] at 10:15 PM on 06/14/2023. Agree with salient details ofreport. WSN: [id number] Ordering Physician: Ned Acosta Dictated By: Tawanna Garsia MD Dictated Date/Time: 06/15/23 5:23 pm Reviewed By: Tawanna Garsia MD Signed By: Tawanna Garsia MD Signed Date/Time: 06/15/23 5:23 pm Transcribed By: LANE Transcribed Date/Time: 06/15/23 5:18 pm * Exam Date Time Procedure Performing Provider Status 06/14/23 9:[address] Ext Lower W/ Contrast Right Chapis Thuthao T; Auth (Verified) Notes: (CT Ext Lower W/ Contrast Right) Reason For Exam: Pain RESULT: CT Ext Lower W/ Contrast Right CT Ext Lower W/ Contrast Right Hx of Present Illness: Patient lives in a drug rehab facility for the past year. Today patient states she was taking a nap and when she woke up she had right hip pain.; Reason: Pain; Clinical Question(s): Hip TECHNIQUE: Helical CT with contrast formatted in 3 planes. 100 cc of Omnipaque 300 was administeredintravenously along with concurrently performed CT lumbar spine. Weight-based protocol using automatic tube modulation was used to optimize exposure parameters. COMPARISONS: Pelvic and left hip radiographs dated 04/26/2023. FINDINGS: Bones and joints: No acute displaced fracture or dislocation is seen. There is subchondral cyst in the anterosuperior right acetabulum. No CT evidence of osteonecrosis. Small bone island is seen in the right femoral head. Minimal bony proliferation is seen of the femoral head neck junction. No focal cortical destruction or periosteal reaction. Soft Tissues: Included musculature appears unremarkable for the CT technique. Right inguinal lymph nodes measure up to 1 cm in short axis. The included bowel and bladder appear unremarkable. No adnexal masses seen. Diffuse decreased attenuation of the visualized hepatic parenchyma, compatible with hepatic steatosis. The kidneys appear unremarkable, as does the gallbladder and pancreas. IMPRESSION: Mild degenerative change in the right hip with no acute displaced fracture or CT evidence of osteomyelitis. Preliminary radiology report issued by [facility] at 10:15 PM on 06/14/2023. Agree with salient details ofreport. WSN: [id number] Ordering Physician: Ned Acosta Dictated By: Tawanna Garsia MD Dictated Date/Time: 06/15/23 5:35 pm Reviewed By: Tawanna Garsia MD Signed By: Tawanna Garsia MD Signed Date/Time: 06/15/23 5:35 pm Transcribed By: LANE Transcribed Date/Time: 06/15/23 5:18 pm Vital Signs Most recent to oldest [Reference Range]: 1 2 3 Height 155 cm (06/14/23 10:54 PM) 155 cm (06/14/23 10:20 PM) 155 cm (06/14/23 9:20 PM) Weight 123 kg (06/14/23 10:54 PM) 123 kg (06/14/23 10:20 PM) 123 kg (06/14/23 9:20 PM) Oxygen Saturation [94-100 %] 96 % (06/14/23 10:54 PM) 96 % (06/14/23 10:20 PM) 91 % *L* (06/14/23 9:20 PM) Pulse Rate [55-90 bpm] 67 bpm (06/14/23 10:54 PM) 65 bpm (06/14/23 10:20 PM) 71 bpm (06/14/23 9:20 PM) Body Mass Index [18.5-24.99 kg/m2] 51.2 kg/m2 *>HHI* (06/14/23 10:54 PM) 51.2 kg/m2 *>HHI* (06/14/23 10:20 PM) 51.2 kg/m2 *>HHI* (06/14/23 9:20 PM) Blood Pressure [90-138/55-84 mm Hg] 120/58mm Hg (06/14/23 10:54 PM) 115/63mm Hg (06/14/23 10:20 PM) 132/61mm Hg (06/14/23 9:20 PM) Respiratory Rate [16-30 br/min] 19 br/min (06/14/23 10:54 PM) 20 br/min (06/14/23 10:20 PM) 18 br/min (06/14/23 9:20 PM) Temperature [96.8-100.4 DegF] 97.9 DegF (06/14/23 10:54 PM) 99.0 DegF (06/14/23 9:20 PM) 98.4 DegF (06/14/23 6:44 PM) Liters per Minute 2 L/min (06/14/23 10:20 PM) Mode of Delivery (Oxygen) Room air (06/14/23 10:54 PM) Nasal cannula (06/14/23 10:20 PM) Room air (06/14/23 9:20 PM) Blood pressure sites Arm, left (06/14/23 10:54 PM) Arm, left (06/14/23 10:20 PM) Arm, left (06/14/23 9:20 PM) Temperature Route Temporal (06/14/23 10:54 PM) Oral (06/14/23 6:44 PM) Dry Weight 123 kg (06/14/23 10:54 PM) 123 kg (06/14/23 10:20 PM) 123 kg (06/14/23 9:20 PM) Social History Social History Type Response Tobacco Use: 4 or less cigar ettes(less than 1/4 pack)/day in last 30 days. Interested in cessation: No. Sex Note * Ned Acosta MD: PERFORM, SIGN, VERIFY Event Display: Patient Education Handout Authored Date: * Ned Acosta MD: PERFORM Event Display: Patient Education Leaflets Authored Date: Osteoarthritis ?? [id number] Osteoarthritis Osteoarthritis happens??when the cartilage in a joint becomes damaged and worn. This may be from age, wear and tear, overuse of the joint, obesity, or other problems. Osteoarthritis??can affect any joint, but it's most common in??hands, knees, spine, hips, and feet. Symptoms include joint stiffness, and pain. It's also called degenerative joint disease. Home care ??? When a joint is more sore than usual, rest it for 1 or 2 days. ??? Heat can help relieve stiffness. Take a hot bath or apply a heating pad for up to 30 minutes at a time. If symptoms are worse in the morning, using heat just after awakening can help relax the muscle and soothe the joints.? Ice helps relieve pain. It's often used after activity. Use a cold pack wrapped in a thin cloth on the joint for 10 to 15 minutes at a time.? Alternating hot and cold can also help relieve pain. Try this for 20 minutes at a time, several times per day. ??? Exercise helps prevent the muscles and ligaments around the joint from becoming weak.??It also helps maintain function in the joint.??Be as active as you can. Talk to your healthcare provider about what activity program is bestfor you. ??? Excess weight puts a lot of extra strain on weight-bearing joints of the lower back, hips, knees, feet, and ankles. If you are overweight, talk to your provider about a safe and effective weight loss program. ??? Use anti-inflammatory medicines as prescribed for pain. This includes acetaminophen or NSAIDs (nonsteroidal anti-inflammatory drugs) such as ibuprofen or naproxen. Don't take NSAIDs if your provider has told you that you can't take NSAIDS because of other health problems. If needed, topical or injected medicines may be advised. Talk with your provider if these choices aren't enough to manage your pain. Follow the directions on all pnjl-ljv-gxhzybs medicines. If you're t aking NSAIDs routinely, talk to your provider. ??? Talk with your provider about devices that mighthelp improve your function and reduce pain. ??? Talk with your provider about physical therapy to help strengthen your joints and the nearby muscles. ?? Follow-up care Follow up with your healthcare provider, or as advised. ?? When to get medical advice Call your healthcare provider right away if any of the following occur: ??? Redness or swelling of a painful joint ??? Discharge or pus from a painful joint ??? Fever of??100.4??F (38??C)??or higher,or as directed by your healthcare provider ??? Joint pain that gets worse ??? Decreased ability to move the joint or bear weight on the joint ?? Last Reviewed Date: 2021 ?? [id number] [employer]. All rights reserved. This information is not intended as a substitute for professional medical care. Always follow your healthcare professional's instructions. ?? * Dave GALVIN, Ned Rodriguez: PERFORM Event Display: Patient Education Leaflets Authored Date: [id number] Obstructive??Sleep Apnea ?? [id number] Obstructive??Sleep Apnea Obstructive sleep apnea is a condition caused by air passages becoming narrowed or blocked during sleep. As a result, breathing stops for short periods. Your body wakes up enough for breathing to start again.??But you don't remember it. The cycle of stopped breathing and brief awakenings can repeatdozens of times a night. This prevents the body from getting to the deeper stages of sleep that areneeded for good rest. Signs of sleep apnea include loud snoring, noisy breathing, and gasping sounds during sleep. Peoplewith sleep apnea often find they use the bathroom many times during the night. Daytime symptoms include waking up tired after a full night's sleep and??waking up with headaches. They can also includefeeling very sleepy or falling asleep during the day,??and having problems with memory or concentrat ion. Risk factors for sleep apnea include: ??? Being overweight ??? Being assigned male at , or being in menopause ??? Smoking ??? Using alcohol or sedating medicines ??? Having enlarged structures in the nose or throat such as enlarged tonsils or adenoids, or extra tissue in the airway Home care Lifestyle changes that can help treat snoring and sleep apnea include: ??? If you're overweight, talk with your healthcare provider about a weight-loss plan for you. ??? Don't drink alcohol for 3 to 4 hours before bedtime. ??? Don't take sedating medicines. Ask your healthcare provider about the medicines you take. ??? If you smoke, talk to your provider about ways to quit. It's important to stayaway from secondhand smoke. Don't use e-cigarettes because of their harmful side effects. ??? Sleepon your side. This can help prevent gravity from pulling relaxed throat tissues into your breathingpassages. ??? If you have allergies or sinus problems that block your nose, ask your provider for help. ??? Use positive airway pressure (PAP). Discuss with your provider the benefits of using PAP athome. And talk about the type of PAP that's best for you. ?? Follow-up care Follow up with your healthcare provider, or as advised.??A diagnosis of sleep apnea is made with a sleep study. Your provider can tell you more about this test. ?? When to get medical care See your healthcare provider if you have daytime symptoms of sleep apnea. These include: ??? Waking up tired after a full night's sleep ??? Waking up with a headache ??? Feeling very sleepy or falling asleep during the day ??? Having problems with memory or concentration Also talk with your provider if your partner tells you that you snore, gasp for air, or stop breathing while you sleep. Seeing your provider is important because sleep apnea can make you more likely to have certain health problems. These include high blood pressure, heart attack, stroke, and sexual dysfunction. If youhave sleep apnea, talk with your healthcare provider about the best treatments for you. ?? Last Reviewed Date: 2021 ?? [id number] [employer]. All rights reserved. This information is not intended as a substitute for professional medical care. Always follow your healthcare professional's instructions. ?? Patient Care team information Care Team Personnel Name: Not on Staff, PCP Position: [facility] Physician (General Medicine) Member Role: PCP
[2023-11-04 12:07] LABS: Reflex Lactate? Lactic Acid Added
[2023-11-04 12:08] LABS: Appearance Urine Clear; Color Urine Yellow; Glucose Urine UA Negative (Negative); Leukocyte Esterase Urine Negative (Negative); Nitrite Urine Negative (Negative); Urine Blood Negative (Negative); Urine Ketones Negative (Negative); Urine Protein Negative (Neg-Trace)
[2023-11-04 12:13] LABS: Bacteria Urine 2+ (None Seen); Hyaline Casts Urine 0-2 /LPF (0-2); RBC Urine 0-2 /HPF (0-2); WBC Urine 0-5 /HPF (0-5)
[2023-11-04 12:16] LABS: Amphetamine Screen Urine Not Detected (Not Detect); Barbiturates, Urine Not Detected (Not Detect); Benzodiazepines Screen Urine POSITIVE (Not Detect); Buprenorphine Scr Not Detected (Not Detect); Cannabinoid Screen Urine Not Detected (Not Detect); Cocaine Screen Urine Not Detected (Not Detect); Fentanyl, urine Not Detected (Not Detect); Methadone Screen, Urine Positive (Not Detect); Opiate Screen Urine Not Detected (Not Detect); Oxycodone Screen Urine Not Detected (Not Detect); Phencyclidine Screen Urine Not Detected (Not Detect)
[2023-11-04 12:39] LABS: UPreg QC Valid YES; Urine Pregnancy NEGATIVE (NEGATIVE)
--- NOTE | 2023-11-04 12:56 | PC.NURSE ---
Addendum entered by Gabrielle Lam 11/04/23 13:18: lab called [facility] back and stated that they made a mistake in regards to repeat lactic level. repeat lactic is 2.5 not 3.3* Original Note: repeat lactic obtained/sent to lab. critical lab value then received at this time. repeat lactic of 3.3 - [facility] notified/aware.
[2023-11-04 13:09] LABS: ~Lactic Acid-LAB USE ONLY 2.5 mmol/L (0.5-2.0)
--- NOTE | 2023-11-04 13:29 | PC.NURSE ---
pt to CT at this time.
[2023-11-04 14:48] LABS: Reflex Lactate? 2 Y
[2023-11-04] MEDS: 0.9 % Sodium Chloride 1,000 ML 999 ML IV (14:59)
--- NOTE | 2023-11-04 15:09 | PC.NURSE ---
repeat labs obtained/sent to lab. pt to CT at this time.
[2023-11-04 15:16] LABS: VBG Base Excess 2.9 mmol/L; VBG HCO3 26 mmol/L (22-26); VBG pCO2 37 mmHg; VBG pH 7.45 (7.32-7.43); VBG pO2 102 mmHg
[2023-11-04 15:20] LABS: Ammonia 39 umol/L (13-55)
[2023-11-04 15:20] LABS: Venous Blood Gas Refer to POC result
[2023-11-04 15:24] LABS: ~Lactic Acid-LAB USE ONLY 2.1 mmol/L (0.5-2.0)
[2023-11-04] MEDS: Ketorolac Tromethamine 30 MG/ML VIAL IVPUSH (15:30)
[2023-11-04] MEDS: Norepinephrine Bitartrate/D5W 8 MG/250 ML PLAST..BAG 13.1 MG IV (15:34)
--- NOTE | 2023-11-04 15:35 | PC.NURSE ---
pt remains hypotensive. ED provider notified/aware. dr. matthews now bedside assessing pt/accepting pt to ICU. pt started on norepi peripherally per provider order at 0.05mcg/kg/min and according to protocol. effectiveness pending.
[2023-11-04] MEDS: Heparin Sodium,Porcine 5,000 UNIT/ML VIAL 5000 UNIT SUBCUT (15:38)
--- NOTE | 2023-11-04 15:42 | PC.NURSE ---
BP slowly trending upward/starting to improve s/p starting norepinephrine drip. dr. johnson notified/aware. per dr. johnson order - pt is to remain at 0.05mcg/kg/min at this time. plan of care ongoing.
[2023-11-04 15:49] LABS: Thyroid Stimulating Hormone 0.75 uIU/mL (0.32-4.0)
--- NOTE | 2023-11-04 15:53 | P.HPCC_ITS ---
History of Present Illness Date of Service: 11/04/23 Chief Complaint: Alteration of mental status, sepsis 38-year-old lady with underlying opioid dependence on methadone admitted on 11/04/2023 with complains of alteration of mental status and fevers. On ER evaluation leukocytosis with left shift and hypotension with poor response to initial IV fluids requiring initiation of pressor support. CT head with no acute findings. Started on broad-spectrum antibiotics and admitted to the intensive care unit. Review of Systems 2 Constitutional: Constitutional: Denies daytime sleepiness, Denies excessive sweating, Reports fatigue, Reports fever(s), Denies lethargy, Reports malaise, Denies night sweats, Denies snoring and Denies weight loss Eyes: Eyes: Denies blurry vision and Denies itchy eyes ENT: Denies nasal congestion, Denies post nasal drip, Denies sinus pain, Denies sinus pressure and Denies other ( Thrush) Cardiovascular: Cardiovascular: Denies chest pain, Denies pedal edema, Denies dyspnea, Denies orthopnea and Denies paroxysmal nocturnal dyspnea Respiratory: Respiratory: Denies cough, Denies hemoptysis, Denies excessive phlegm production, Denies dyspnea, Denies snoring and Denies wheezing Gastrointestinal: Gastrointestinal: Denies abdominal pain, Denies heartburn and Reports nausea Musculoskeletal: Musculoskeletal: Denies myalgias, Denies arthralgias and Denies joint swelling Integumentary/Breasts: Skin/Breast: Denies rash Neurologic: Denies memory loss and Denies seizure-like activity Psychiatric: Psychiatric: Denies abnormal sleep pattern, Denies anxiety and Denies memory loss Endocrine: Endocrine: Denies excessive sweating, Reports fatigue and Denies heat intolerance Hematologic/Lymphatic: Hematologic/Lymphatic: Denies easy bruising Allergic/Immunologic: Allergic/Immunologic: Denies itchy eyes, Denies seasonal rhinorrhea and Denies wheezing PMFSH Social History Social History Smoked in Last 30 Days: Yes Use of substances other than those prescribed or required for medical reasons: No Any prior treatment program specific to substance use: Yes Advance Directives: No Advance Directives Information Provided: Yes Do you have a plan to hurt others: No Plan Patient : No Meds Allergies Allergy/AdvReac Type Severity Reaction Status Date / Time cephalexin Allergy Unknown Verified 11/04/23 09:16 Active Medications: Current Medications Heparin Sodium (Porcine) (Heparin Sodium,Porcine 5,000 Unit/Ml Vial) 5,000 unit SUBCUT Q8H [facility] Last Admin: 11/04/23 15:38 Dose: 5,000 unit Sodium Chloride (Ns) 1,000 mls @ 999 mls/hr IV .Q1H1M [facility] Stop: 11/04/23 16:00 Last Admin: 11/04/23 14:59 Dose: 999 mls/hr Norepinephrine Bitartrate (Levophed) 8 mg in 250 mls @ 0 mls/hr IV .Q0M [facility]; Protocol Last Admin: 11/04/23 15:34 Dose: 0.05 mcg/kg/min, 13.1 mls/hr Piperacillin Sod/Tazobactam (Sod 3.375 gm/ Sodium Chloride) 50 mls @ 100 mls/hr IV Q6H [facility] Last Admin: 11/04/23 15:47 Dose: 100 mls/hr Insulin Human Lispro (Insulin Lispro 100 Unit/Ml 3 Ml Vial) 0 unit SUBCUT QIDACHS [facility]; Protocol Pharmacy Consult (Consult Rx Vancomycin Dosing) 1 each MISCELLANE DAILY PRN PRN Reason: Consult order Physical Exam 2 Vital Signs: Vital Signs: Last Vital Signs Temp 100.5 F H 11/04/23 12:55 Pulse 67 11/04/23 15:49 Resp 14 11/04/23 15:49 BP 114/64 11/04/23 15:49 Pulse Ox 94 11/04/23 15:49 O2 Del Method Nasal Cannula 11/04/23 15:49 O2 Flow Rate 5 11/04/23 15:49 BMI result Body Mass Index 46.8 Const: General: no acute distress, alert and awake Nutritional Appearance: obese Eyes: Sclerae: sclerae normal EOM: EOMs intact bilaterally Neck: Neck: Yes no lymphadenopathy, Yes trachea midline and Yes supple Resp: Effort & Inspection: normal respiratory effort and no respiratory distress Auscultation: clear to auscultation bilaterally Cardio: Rate: regular rate Rhythm: regular rhythm Heart sounds: no gallops, no murmurs and no rubs GI: Palpation (GI): Soft to palpation and Other GI palpation findings present ( Nontender) Auscultation: normal bowel sounds Extrem: General: Yes no pedal edema, No clubbing and No cyanosis Results Labs 11/04/23 09:32 11/04/23 09:32 Labs: Laboratory Results - last 24 hr 11/04/23 11/04/23 11/04/23 09:13 09:32 10:01 MCV 79.8 L MCH 25.9 L MCHC 32.5 RDW 18.0 H Plt Count 270 MPV 10.2 Immature Gran % (Auto) Cancelled Neut % (Auto) Cancelled Lymph % (Auto) Cancelled [place] % (Auto) Cancelled Eos % (Auto) Cancelled Baso % (Auto) Cancelled Lymph # (Auto) Cancelled [place] # (Auto) Cancelled Eos # (Auto) Cancelled Baso # (Auto) Cancelled Abs Immat Gran (auto) Cancelled Absolute Neuts (auto) Cancelled Absolute Nucleated RBC 0.000 Nucleated RBC % (auto) 0.0 Neutrophils % (Manual) 79 H Band Neutrophils % 14 H Lymphocytes % (Manual) 4 L Monocytes % (Manual) 2 Metamyelocytes % 1 Abs Neuts (Manual) 11.7 H Lymphocytes # (Manual) 0.5 L Monocytes # (Manual) 0.3 Metamyelocytes # 0.1 Toxic Vacuolation PRESENT Platelet Estimate NORMAL Plt Morphology Comment NORMAL RBC Morphology NORMAL PT 12.9 INR 1.1 APTT 27.2 VBG pH VBG pCO2 VBG pO2 VBG HCO3 VBG O2 Saturation VBG Base Excess Anion Gap 17 Estim Creat Clear Calc 98.9 Estimated GFR 52 POC Glucose 235 H Random Glucose 233 H Lactic Acid 3.3 H* Lactic Acid F/U @ 2Hr Lactic Acid F/U @ 4Hr Calcium 9.3 Total Bilirubin 0.5 AST 40 H ALT 41 H Alkaline Phosphatase 182 H Ammonia Troponin I High Sens 9.3 B-Natriuretic Peptide < 10 Total Protein 8.2 H Albumin 4.0 TSH Urine Color Urine Appearance Urine pH Ur Specific [place] Urine Protein Urine Glucose (UA) Urine Ketones Urine Blood Urine Nitrite Ur Leukocyte Esterase Urine RBC Urine WBC Ur Squamous Epith Cells Urine Bacteria Hyaline Casts Urine Test Urine Opiates Screen Ur Buprenorphine Scrn Ur Oxycodone Screen Urine Methadone Screen Urine Fentanyl Screen Ur Barbiturates Screen Ur Phencyclidine Scrn Ur Amphetamines Screen U Benzodiazepines Scrn Urine Cocaine Screen U Marijuana (THC) Screen Ethyl Alcohol < 10 Influenza Type A (PCR) NEGATIVE Influenza Type B (PCR) NEGATIVE RSV RNA Qual (PCR) NEGATIVE SARS-CoV-2 RNA (RT-PCR) NEGATIVE S. pyogenes GrpA SILVIA Negative 11/04/23 11/04/23 11/04/23 11:51 12:41 15:06 MCV MCH MCHC RDW Plt Count MPV Immature Gran % (Auto) Neut % (Auto) Lymph % (Auto) [place] % (Auto) Eos % (Auto) Baso % (Auto) Lymph # (Auto) [place] # (Auto) Eos # (Auto) Baso # (Auto) Abs Immat Gran (auto) Absolute Neuts (auto) Absolute Nucleated RBC Nucleated RBC % (auto) Neutrophils % (Manual) Band Neutrophils % Lymphocytes % (Manual) Monocytes % (Manual) Metamyelocytes % Abs Neuts (Manual) Lymphocytes # (Manual) Monocytes # (Manual) Metamyelocytes # Toxic Vacuolation Platelet Estimate Plt Morphology Comment RBC Morphology PT INR APTT VBG pH VBG pCO2 VBG pO2 VBG HCO3 VBG O2 Saturation VBG Base Excess Anion Gap Estim Creat Clear Calc Estimated GFR POC Glucose Random Glucose Lactic Acid Lactic Acid F/U @ 2Hr 2.5 H* Lactic Acid F/U @ 4Hr 2.1 H* Calcium Total Bilirubin AST ALT Alkaline Phosphatase Ammonia 39 Troponin I High Sens B-Natriuretic Peptide Total Protein Albumin TSH 0.75 Urine Color Yellow Urine Appearance Clear Urine pH 7.0 Ur Specific [place] 1.010 Urine Protein Negative Urine Glucose (UA) Negative Urine Ketones Negative Urine Blood Negative Urine Nitrite Negative Ur Leukocyte Esterase Negative Urine RBC 0-2 Urine WBC 0-5 Ur Squamous Epith Cells 6-10 Urine Bacteria 2+ Hyaline Casts 0-2 Urine Test NEGATIVE Urine Opiates Screen Not Detected Ur Buprenorphine Scrn Not Detected Ur Oxycodone Screen Not Detected Urine Methadone Screen Positive H Urine Fentanyl Screen Not Detected Ur Barbiturates Screen Not Detected Ur Phencyclidine Scrn Not Detected Ur Amphetamines Screen Not Detected U Benzodiazepines Scrn POSITIVE H Urine Cocaine Screen Not Detected U Marijuana (THC) Screen Not Detected Ethyl Alcohol Influenza Type A (PCR) Influenza Type B (PCR) RSV RNA Qual (PCR) SARS-CoV-2 RNA (RT-PCR) S. pyogenes GrpA SILVIA 11/04/23 15:07 MCV MCH MCHC RDW Plt Count MPV Immature Gran % (Auto) Neut % (Auto) Lymph % (Auto) [place] % (Auto) Eos % (Auto) Baso % (Auto) Lymph # (Auto) [place] # (Auto) Eos # (Auto) Baso # (Auto) Abs Immat Gran (auto) Absolute Neuts (auto) Absolute Nucleated RBC Nucleated RBC % (auto) Neutrophils % (Manual) Band Neutrophils % Lymphocytes % (Manual) Monocytes % (Manual) Metamyelocytes % Abs Neuts (Manual) Lymphocytes # (Manual) Monocytes # (Manual) Metamyelocytes # Toxic Vacuolation Platelet Estimate Plt Morphology Comment RBC Morphology PT INR APTT VBG pH 7.45 H VBG pCO2 37 VBG pO2 102 VBG HCO3 26 VBG O2 Saturation 99.0 VBG Base Excess 2.9 Anion Gap Estim Creat Clear Calc Estimated GFR POC Glucose Random Glucose Lactic Acid Lactic Acid F/U @ 2Hr Lactic Acid F/U @ 4Hr Calcium Total Bilirubin AST ALT Alkaline Phosphatase Ammonia Troponin I High Sens B-Natriuretic Peptide Total Protein Albumin TSH Urine Color Urine Appearance Urine pH Ur Specific [place] Urine Protein Urine Glucose (UA) Urine Ketones Urine Blood Urine Nitrite Ur Leukocyte Esterase Urine RBC Urine WBC Ur Squamous Epith Cells Urine Bacteria Hyaline Casts Urine Test Urine Opiates Screen Ur Buprenorphine Scrn Ur Oxycodone Screen Urine Methadone Screen Urine Fentanyl Screen Ur Barbiturates Screen Ur Phencyclidine Scrn Ur Amphetamines Screen U Benzodiazepines Scrn Urine Cocaine Screen U Marijuana (THC) Screen Ethyl Alcohol Influenza Type A (PCR) Influenza Type B (PCR) RSV RNA Qual (PCR) SARS-CoV-2 RNA (RT-PCR) S. pyogenes GrpA SILVIA Imaging Radiologist's Impressions: Impressions Chest X-Ray 11/04/23 10:55 IMPRESSION: No radiographic evidence of pneumonia. Abdomen/Pelvis CT 11/04/23 13:38 IMPRESSION: * No specific source of right lower quadrant pain is identified. No evidence of appendicitis. * Obesity, hepatosplenomegaly and diffuse hepatic steatosis (or steatohepatitis). * Small stone of the lower pole of the left kidney. No ureteral stones or hydroureteronephrosis. * There is mild inguinal and external iliac lymphadenopathy. Since the superficial right inguinal lymph nodes are larger than those seen on the left, query if there is any soft tissue inflammatory process in the right lower extremity which could cause a mild reactive lymphadenopathy. Chest X-Ray 11/04/23 14:50 IMPRESSION: Very limited though grossly clear frontal and lateral chest radiographs. Assessment and Plan (1) Septic shock: Status: Acute (2) Septic encephalopathy: Status: Acute Plan Assessment: 38-year-old lady with underlying history of IV drug abuse and opioid dependence on methadone admitted with septic shock with unclear source now requiring pressor support. Plan: Neuro: Waxing and waning encephalopathy, appears to be septic in nature. Cardiac: Septic shock, continue to titrate off pressor support as tolerated. Pulmonary: No acute issues. Renal: No acute issues. Endo: No acute issues. GI: No acute issues. ID: Septic shock of unclear etiology. Cultures are pending. Continue broad- spectrum antibiotics Heme/Onc: No acute issues. Psych: No acute issues. Miscellaneous: No acute issues. Prophylaxis: Heparin Diet: Diabetic Critical care time spent: 45 minutes
--- NOTE | 2023-11-04 15:56 | PC.NURSE ---
Addendum entered by Gabrielle Lam 11/04/23 16:09: Gabrielle Lam RN wrote this note* was logged in under someone else. Original Note: report given to KATIE Herbert in ICU at this time. RN reports they will come and transfer pt shortly.
--- NOTE | 2023-11-04 16:05 | PHA.PROG ---
Admission Date/Time: November 04, 2023 16:03 Indication: other Weight in k.7 kg Adjusted body weight in Kg: [place] body weight in Kg: Obesity Dosing Indication % IBW: Serum Creatinine - Last 168 Hours 11/04/23 09:32 Creatinine 1.17 Estimated CrCl and GFR - Last 168 Hours 11/04/23 09:32 Estim Creat Clear Calc 98.9 Estimated GFR 52 Vancomycin Loading Dose: 2000 MG Current Vancomycin Dosing Regimen: 1000 MG Q12H Vancomycin Monitoring using AUC goal of 400 - 600 range with trough as surrogate marker: [id number] TROUGH=17 Date and Time for next Vancomycin Level to be drawn: 11/04 @1999 Pharmacist Comments on Vancomycin Plan: Vancomycin dosing will take advantage of [employer] as a clinical decision support tool that uses Bayesian modeling to calculate individual patient's pharmacokinetic parameters and forecast the patient's drug concentration time course with the target goal AUC 24 range of 400 - 600 mg/L/hr.
--- NOTE | 2023-11-04 16:09 | PC.NURSE ---
pt being transported upstairs to ICU w/ RN's from ICU at this time.
[2023-11-04 17:44] LABS: Glucose, Whole Blood 156 mg/dL (60-115)
[2023-11-04 20:47] LABS: Glucose, Whole Blood 166 mg/dL (60-115)
--- NOTE | 2023-11-04 21:23 | PHA.MEDREC ---
Pharmacy Consult ? Medication Reconciliation Pharmacy has completed the medication reconciliation. patient resumes in ICU not able to talk to her . patient came from rehab/detox in [place]. I believe it's [facility] [phone] called left msg with no response. I called patients father at [phone] left msg on voicemail. Called [facility] [phone] they confirmed most of the medication on list. [facility] stated they deliver her meds to a alf called [facility]. called [facility] pharmacy [phone] to confirm rest of the med list.
[2023-11-04] MEDS: vancomycin HCL 1,000 MG in 0.9 % Sodium Chloride 250 ML 270 MG IV (21:46)
[2023-11-05] VITALS (15 sets, daily range): BP systolic 114–155; BP diastolic 56–84; PULSE 64–72; RESP 13–20; TEMP 36.5–36.7; O2SAT 90–97; BMI 50.3
--- NOTE | 2023-11-05 | ECG_ITS ---
Test Reason : qt Blood Pressure : / mmHG Vent. Rate : 071 BPM Atrial Rate : 071 BPM P-R Int : 154 ms QRS Dur : 098 ms QT Int : 438 ms P-R-T Axes : 024 026 025 degrees QTc Int : 475 ms Normal sinus rhythm Normal ECG When compared with ECG of 04-NOV-2023 09:17, Vent. rate has decreased BY 36 BPM Referred By: Dwight Dennis Electronically Signed By:Joe Romeo
[2023-11-05] MEDS: Acetaminophen 325 MG TABLET 650 MG PO ×2 (02:05→12:35)
[2023-11-05] MEDS: Piperacillin Sodium/Tazobactam 3.375 GM in 0.9 % Sodium Chloride 50 ML IV ×4 (03:33→19:56)
--- NOTE | 2023-11-05 06:40 | HE.PHANOTE ---
METHADONE Dose: 120mg AM and 75 PM, last dosed on 11/02 @0616 of 120mg per [facility] Flory Moreira RN.
[2023-11-05 07:16] LABS: MANUAL DIFF FLAG NO
[2023-11-05 07:20] LABS: Basophils Percent Auto 0.5 % (0-2); Eosinophils Absolute Auto 0.1 X10*3/uL (0.0-0.4); Eosinophils Percent Auto 0.7 % (0-4); Hematocrit 30.8 % (37.0-47.0); Hemoglobin 9.9 g/dl (12.0-16.0); Imm Gran Abs Auto 0.12 X10*3/uL (0.00-0.03); Imm Gran Pct Auto 1.4 % (0.0-0.4); Lymphocytes Absolute Auto 0.9 X10*3/uL (1.2-4.9); Lymphocytes Percent Auto 10.9 % (20-40); Mean Corpuscular HGB Conc 32.1 g/dl (31.0-35.0); Mean Corpuscular Hemoglobin 26.1 pg (27.0-33.0); Mean Corpuscular Volume 81.3 fL (80.0-98.0); Mean Platelet Volume 10.6 fL (9.4-12.3); Monocytes Absolute Auto 0.4 X10*3/uL (0.1-1.2); Monocytes Percent Auto 4.9 % (2-11); Neutrophils Absolute Auto 6.9 x10*3/uL (2.0-8.3); Neutrophils Percent Auto 81.6 % (45-73); Platelet Count 218 X10*3/uL (160-400); Red Blood Count 3.79 X10*6/uL (4.20-5.50); Red Cell Distribution Width 18.5 % (11.0-16.0); White Blood Count 8.5 X10*3/uL (4.8-10.8)
[2023-11-05 07:24] LABS: VBG Base Excess 3.2 mmol/L; VBG HCO3 28 mmol/L (22-26); VBG pCO2 46 mmHg; VBG pH 7.39 (7.32-7.43); VBG pO2 45 mmHg
[2023-11-05 07:24] LABS: Venous Blood Gas Refer to POC result
[2023-11-05 07:28] LABS: Glucose, Whole Blood 163 mg/dL (60-115)
[2023-11-05 07:37] LABS: Albumin Level 3.1 g/dL (3.5-5.0); Anion Gap 11 (12-20); Blood Urea Nitrogen 10 mg/dL (9-16); Carbon Dioxide 26 mmol/L (22-29); Chloride 105 mmol/L (96-108); Creatinine Clr Calc Pharmacy 147.2; Estimated Glomerular Filt Rate > 60; Glucose Random 168 mg/dL (60-115); Phosphorus 2.9 mg/dL (2.7-4.5); Potassium 3.9 mmol/L (3.3-5.1); Sodium 138 mmol/L (135-145)
[2023-11-05] MEDS: methADONE HCl 20 MG/2 ML ORAL.CONC 60 MG PO (08:40)
--- NOTE | 2023-11-05 11:10 | PM.CCPN ---
Subjective Subjective Date of Service: 11/05/23 Interval History: 38-year-old lady with underlying opioid dependence on methadone admitted on 11/04/2023 with complains of alteration of mental status and fevers. On ER evaluation leukocytosis with left shift and hypotension with poor response to initial IV fluids requiring initiation of pressor support. CT head with no acute findings. Started on broad-spectrum antibiotics and admitted to the intensive care unit. No events overnight. Titrated off pressors. Critical Care Time (minutes): 0 Physical Exam Vital Signs: Vital Signs: Last Vital Signs Temp 98.6 F 11/04/23 23:00 Pulse 69 11/05/23 10:00 Resp 18 11/05/23 10:00 BP 125/64 11/05/23 08:21 Pulse Ox 93 11/05/23 10:00 O2 Del Method Room Air 11/05/23 10:00 O2 Flow Rate 2 11/05/23 06:00 BMI result Body Mass Index 50.3 Const: General: no acute distress, alert and awake Nutritional Appearance: obese Eyes: Sclerae: sclerae normal EOM: EOMs intact bilaterally Neck: Neck: Yes no lymphadenopathy, Yes trachea midline and Yes supple Resp: Effort & Inspection: normal respiratory effort and no respiratory distress Auscultation: clear to auscultation bilaterally Cardio: Rate: regular rate Rhythm: regular rhythm Heart sounds: no gallops, no murmurs and no rubs GI: Palpation (GI): Soft to palpation and Other GI palpation findings present ( Nontender) Auscultation: normal bowel sounds Skin: General skin exam: other (Right lower leg cellulitis) Extrem: General: Yes no pedal edema, No clubbing and No cyanosis Objective Data Labs 11/05/23 07:04 11/05/23 07:04 Labs: Laboratory Results - last 24 hr 11/04/23 11/04/23 11/04/23 11:51 12:41 15:06 WBC RBC Hgb Hct MCV MCH MCHC RDW Plt Count MPV Immature Gran % (Auto) Neut % (Auto) Lymph % (Auto) [place] % (Auto) Eos % (Auto) Baso % (Auto) Lymph # (Auto) [place] # (Auto) Eos # (Auto) Baso # (Auto) Abs Immat Gran (auto) Absolute Neuts (auto) Absolute Nucleated RBC Nucleated RBC % (auto) VBG pH VBG pCO2 VBG pO2 VBG HCO3 VBG O2 Saturation VBG Base Excess Sodium Potassium Chloride Carbon Dioxide Anion Gap BUN Creatinine Estim Creat Clear Calc Estimated GFR POC Glucose Random Glucose Lactic Acid F/U @ 2Hr 2.5 H* Lactic Acid F/U @ 4Hr 2.1 H* Calcium Phosphorus Magnesium Ammonia 39 Albumin TSH 0.75 Urine Color Yellow Urine Appearance Clear Urine pH 7.0 Ur Specific [place] 1.010 Urine Protein Negative Urine Glucose (UA) Negative Urine Ketones Negative Urine Blood Negative Urine Nitrite Negative Ur Leukocyte Esterase Negative Urine RBC 0-2 Urine WBC 0-5 Ur Squamous Epith Cells 6-10 Urine Bacteria 2+ Hyaline Casts 0-2 Urine Test NEGATIVE Urine Opiates Screen Not Detected Ur Buprenorphine Scrn Not Detected Ur Oxycodone Screen Not Detected Urine Methadone Screen Positive H Urine Fentanyl Screen Not Detected Ur Barbiturates Screen Not Detected Ur Phencyclidine Scrn Not Detected Ur Amphetamines Screen Not Detected U Benzodiazepines Scrn POSITIVE H Urine Cocaine Screen Not Detected U Marijuana (THC) Screen Not Detected 11/04/23 11/04/23 11/04/23 15:07 17:39 20:42 WBC RBC Hgb Hct MCV MCH MCHC RDW Plt Count MPV Immature Gran % (Auto) Neut % (Auto) Lymph % (Auto) [place] % (Auto) Eos % (Auto) Baso % (Auto) Lymph # (Auto) [place] # (Auto) Eos # (Auto) Baso # (Auto) Abs Immat Gran (auto) Absolute Neuts (auto) Absolute Nucleated RBC Nucleated RBC % (auto) VBG pH 7.45 H VBG pCO2 37 VBG pO2 102 VBG HCO3 26 VBG O2 Saturation 99.0 VBG Base Excess 2.9 Sodium Potassium Chloride Carbon Dioxide Anion Gap BUN Creatinine Estim Creat Clear Calc Estimated GFR POC Glucose 156 H 166 H Random Glucose Lactic Acid F/U @ 2Hr Lactic Acid F/U @ 4Hr Calcium Phosphorus Magnesium Ammonia Albumin TSH Urine Color Urine Appearance Urine pH Ur Specific [place] Urine Protein Urine Glucose (UA) Urine Ketones Urine Blood Urine Nitrite Ur Leukocyte Esterase Urine RBC Urine WBC Ur Squamous Epith Cells Urine Bacteria Hyaline Casts Urine Test Urine Opiates Screen Ur Buprenorphine Scrn Ur Oxycodone Screen Urine Methadone Screen Urine Fentanyl Screen Ur Barbiturates Screen Ur Phencyclidine Scrn Ur Amphetamines Screen U Benzodiazepines Scrn Urine Cocaine Screen U Marijuana (THC) Screen 11/05/23 11/05/23 11/05/23 07:04 07:17 07:22 WBC 8.5 RBC 3.79 L Hgb 9.9 L Hct 30.8 L MCV 81.3 MCH 26.1 L MCHC 32.1 RDW 18.5 H Plt Count 218 MPV 10.6 Immature Gran % (Auto) 1.4 H Neut % (Auto) 81.6 H Lymph % (Auto) 10.9 L [place] % (Auto) 4.9 Eos % (Auto) 0.7 Baso % (Auto) 0.5 Lymph # (Auto) 0.9 L [place] # (Auto) 0.4 Eos # (Auto) 0.1 Baso # (Auto) 0.0 Abs Immat Gran (auto) 0.12 H Absolute Neuts (auto) 6.9 Absolute Nucleated RBC 0.000 Nucleated RBC % (auto) 0.0 VBG pH 7.39 VBG pCO2 46 VBG pO2 45 VBG HCO3 28 H VBG O2 Saturation 74.0 VBG Base Excess 3.2 Sodium 138 Potassium 3.9 Chloride 105 Carbon Dioxide 26 Anion Gap 11 L BUN 10 Creatinine 0.82 Estim Creat Clear Calc 147.2 Estimated GFR > 60 POC Glucose 163 H Random Glucose 168 H Lactic Acid F/U @ 2Hr Lactic Acid F/U @ 4Hr Calcium 8.0 L D Phosphorus 2.9 Magnesium 2.0 Ammonia Albumin 3.1 L TSH Urine Color Urine Appearance Urine pH Ur Specific [place] Urine Protein Urine Glucose (UA) Urine Ketones Urine Blood Urine Nitrite Ur Leukocyte Esterase Urine RBC Urine WBC Ur Squamous Epith Cells Urine Bacteria Hyaline Casts Urine Test Urine Opiates Screen Ur Buprenorphine Scrn Ur Oxycodone Screen Urine Methadone Screen Urine Fentanyl Screen Ur Barbiturates Screen Ur Phencyclidine Scrn Ur Amphetamines Screen U Benzodiazepines Scrn Urine Cocaine Screen U Marijuana (THC) Screen Progress Note: A&P Assessment and plan (1) Cellulitis: Status: Acute (2) Opioid dependence: Status: Acute (3) Septic shock: Status: Acute Plan Assessment: 38-year-old lady with underlying history of IV drug abuse and opioid dependence on methadone admitted with septic shock with unclear source now requiring pressor support. Plan: Neuro: Encephalopathy resolved. Underlying opioid dependence and psychiatric polypharmacy. Cardiac: Septic shock, resolved, titrated off pressors. Pulmonary: No acute issues. Renal: No acute issues. Endo: No acute issues. Underlying hypothyroidism, continue on Synthroid. GI: No acute issues. ID: Right lower extremity cellulitis. Cultures are pending. Continue broad-spectrum antibiotics Heme/Onc: No acute issues. Psych: No acute issues. Miscellaneous: No acute issues. Prophylaxis: Heparin Diet: Regular Quality Stroke Does the patient have a stroke diagnosis?: No VTE Prior VTE?: No VTE Risk Level:: Medical - moderate - high VTE Device Contraindication: Treatment Not Indicated VTE Drug Contraindication: N/A - Med Ordered
[2023-11-05 11:25] LABS: Glucose, Whole Blood 146 mg/dL (60-115)
[2023-11-05] MEDS: vancomycin HCL 1,000 MG in 0.9 % Sodium Chloride 250 ML 270 MG IV (12:28)
--- NOTE | 2023-11-05 13:01 | MHC.CM.PN ---
Addendum entered by Ivania Julio 11/05/23 13:40: Methadone is received from [facility]. Patient moved from [facility] 3 years ago. Her PCP at that time Charles Negrete. Original Note: Patient sent via EMS from Methadone dispensary for AMS Diaphoretic nausea. DX Septic shock. She was sent to the ICU for presser support. CM met with patient in ICU briefly. She stated that she was from the [facility] program. She requested the phone number to the facility. She planned to leave [place] at that time. She was convinced to stay by this selling underwriter as well as [facility] staff. [place] [facility]. She states that she has been living at [facility] for 1mo. Prior she stated that she has lived at a [employer] program in [place]. She stated that she cant think now. She does not recall the details of her past housing situation. She invited me to return tomorrow with my questions. A HCP has been documented and scanned into the EMR. Pts father has been named as HCP. He is her only contact listed. DP return to [facility] via staff transport.
[2023-11-05] MEDS: ALPRAZolam 0.5 MG TABLET 1 MG PO (17:31)
[2023-11-05] MEDS: Promethazine HCL 25 MG TABLET 50 MG PO (17:32)
[2023-11-05] MEDS: methADONE HCl 20 MG/2 ML ORAL.CONC 75 MG PO (19:50)
[2023-11-05] MEDS: Pregabalin 150 MG CAPSULE 300 MG PO (19:56)
[2023-11-05] MEDS: Diclofenac Sodium Delayed Rel 75 MG TABLET.DR PO (19:57)
[2023-11-05] MEDS: lamoTRIgine 100 MG TABLET 400 MG PO (19:59)
[2023-11-05] MEDS: Zolpidem Tartrate 5 MG TABLET PO (20:00)
[2023-11-05 20:48] LABS: Vancomycin Random 9.6 mcg/mL (15-20)
[2023-11-06] VITALS (10 sets, daily range): BP systolic 120–137; BP diastolic 60–84; PULSE 55–78; RESP 17–20; TEMP 36.2–36.9; O2SAT 92–99
[2023-11-06] MEDS: Acetaminophen 325 MG TABLET 650 MG PO ×2 (00:19→09:17)
[2023-11-06 05:16] LABS: Glucose, Whole Blood 122 mg/dL (60-115)
[2023-11-06] MEDS: Piperacillin Sodium/Tazobactam 3.375 GM in 0.9 % Sodium Chloride 50 ML IV ×4 (05:16→20:33)
[2023-11-06] MEDS: Levothyroxine Sodium 112 MCG TABLET PO (05:21)
[2023-11-06] MEDS: Omeprazole 20 MG CAPSULE.DR PO (05:21)
[2023-11-06] MEDS: ALPRAZolam 0.5 MG TABLET 1 MG PO ×2 (05:22→15:51)
[2023-11-06 06:01] LABS: MANUAL DIFF FLAG NO
[2023-11-06 06:25] LABS: Basophils Percent Auto 0.4 % (0-2); Eosinophils Absolute Auto 0.2 X10*3/uL (0.0-0.4); Eosinophils Percent Auto 2.3 % (0-4); Hematocrit 38.2 % (37.0-47.0); Hemoglobin 12.2 g/dl (12.0-16.0); Imm Gran Abs Auto 0.09 X10*3/uL (0.00-0.03); Imm Gran Pct Auto 1.3 % (0.0-0.4); Lymphocytes Absolute Auto 1.3 X10*3/uL (1.2-4.9); Lymphocytes Percent Auto 17.9 % (20-40); Mean Corpuscular HGB Conc 31.9 g/dl (31.0-35.0); Mean Corpuscular Hemoglobin 26.2 pg (27.0-33.0); Mean Platelet Volume 10.3 fL (9.4-12.3); Monocytes Absolute Auto 0.4 X10*3/uL (0.1-1.2); Monocytes Percent Auto 5.5 % (2-11); Neutrophils Absolute Auto 5.1 x10*3/uL (2.0-8.3); Neutrophils Percent Auto 72.6 % (45-73); Platelet Count 207 X10*3/uL (160-400); Red Blood Count 4.66 X10*6/uL (4.20-5.50); Red Cell Distribution Width 19.3 % (11.0-16.0)
[2023-11-06 06:32] LABS: Anion Gap 12 (12-20); Blood Urea Nitrogen 7 mg/dL (9-16); Calcium 8.7 mg/dL (8.4-10.2); Carbon Dioxide 21 mmol/L (22-29); Chloride 109 mmol/L (96-108); Creatinine Clr Calc Pharmacy 172.5; Estimated Glomerular Filt Rate > 60; Glucose Random 129 mg/dL (60-115); Magnesium 2.3 mg/dL (1.6-2.6); Phosphorus 3.4 mg/dL (2.7-4.5); Potassium 3.9 mmol/L (3.3-5.1); Sodium 138 mmol/L (135-145)
[2023-11-06 07:49] LABS: Glucose, Whole Blood 140 mg/dL (60-115)
[2023-11-06] MEDS: methADONE HCl 20 MG/2 ML ORAL.CONC 75 MG PO ×2 (09:09→20:32)
[2023-11-06] MEDS: Promethazine HCL 25 MG TABLET 50 MG PO (09:11)
[2023-11-06] MEDS: Multivitamin TABLET 1 TAB PO (09:12)
[2023-11-06] MEDS: Pregabalin 150 MG CAPSULE 300 MG PO ×2 (09:13→20:25)
[2023-11-06] MEDS: Diclofenac Sodium Delayed Rel 75 MG TABLET.DR 150 MG PO (09:15)
[2023-11-06] MEDS: Aspirin Enteric Coated 81 MG TABLET.DR PO (09:19)
[2023-11-06] MEDS: vancomycin HCL 1,500 MG in 0.9 % Sodium Chloride 500 ML 333.33 MG IV ×2 (10:29→23:13)
[2023-11-06] MEDS: Torsemide 20 MG TABLET 40 MG PO (10:31)
[2023-11-06] MEDS: Prazosin HCL 5 MG CAPSULE PO ×2 (10:32→20:19)
[2023-11-06 10:56] LABS: Glucose, Whole Blood 190 mg/dL (60-115)
--- NOTE | 2023-11-06 11:54 | HO.ADDICTCON ---
History of Present Illness Date of Service: 11/06/2023 Chief Complaint: AMS,DIAPHORETIC,NAUSEA,THIRST PER EMS Reason for Consult: methadone titration Sources of Information: patient interviewed and chart reviewed HPI Narrative: Patient is a 38 year old female medically admitted with septic shock. In ICU overnight, now transferred to med/tele unit. Methadone dose decreased while in ICU, presumably due to AMS and prolonged QT at admission. Verified dose of methadone is 120mg in AM and 75mg in the evening. At time of evaluation this morning patient's methadone order was 75mg BID. Seen in room 472. Awake, alert, pleasant and engaged in interview. Reporting she has been on methadone for approx 2 years. Prior to that was prescribed buprenorphine for 8 years She resides at [facility] currently, and is originally from [facility]. States she has abstained from all substances for the last 8 months. Reporting she is not feeling well due to decrease in methadone dose, as well as administration time here. States she usually doses around 5:30am . Review of Systems Constitutional: Reports as per HPI, Reports body ache(s) and Reports malaise Diagnostics Vital Signs (24Hr): Vital Signs - 24 hr 11/05/23 12:00 11/05/23 15:23 11/05/23 19:57 Temperature 97.8 F 98.1 F 97.7 F Pulse Rate 72 67 72 Respiratory Rate 20 18 20 Blood Pressure 136/76 128/67 151/84 H Pulse Oximetry 97 97 93 Oxygen Delivery Method Room Air Room Air Room Air Oxygen Flow Rate 11/06/23 00:00 11/06/23 04:00 11/06/23 07:57 Temperature 98.5 F 97.1 F 97.6 F Pulse Rate 78 62 60 Respiratory Rate 18 18 20 Blood Pressure 133/72 121/73 137/84 Pulse Oximetry 94 95 96 Oxygen Delivery Method Nasal Cannula Nasal Cannula Nasal Cannula Oxygen Flow Rate 2 2 2 11/06/23 10:31 11/06/23 10:32 11/06/23 11:43 Temperature 97.2 F Pulse Rate 55 Respiratory Rate 18 Blood Pressure 137/84 137/84 136/79 Pulse Oximetry 94 Oxygen Delivery Method Room Air Oxygen Flow Rate BMI result Body Mass Index 50.3 Labs 11/06/23 05:55 11/06/23 05:55 Labs: Laboratory Results - last 48 hr 0611/04/23 11/04/23 11:51 12:41 15:06 WBC RBC Hgb Hct MCV MCH MCHC RDW Plt Count MPV Immature Gran % (Auto) Neut % (Auto) Lymph % (Auto) [place] % (Auto) Eos % (Auto) Baso % (Auto) Lymph # (Auto) [place] # (Auto) Eos # (Auto) Baso # (Auto) Abs Immat Gran (auto) Absolute Neuts (auto) Absolute Nucleated RBC Nucleated RBC % (auto) VBG pH VBG pCO2 VBG pO2 VBG HCO3 VBG O2 Saturation VBG Base Excess Sodium Potassium Chloride Carbon Dioxide Anion Gap BUN Creatinine Estim Creat Clear Calc Estimated GFR POC Glucose Random Glucose Lactic Acid F/U @ 2Hr 2.5 H* Lactic Acid F/U @ 4Hr 2.1 H* Calcium Phosphorus Magnesium Ammonia 39 Albumin TSH 0.75 Urine Color Yellow Urine Appearance Clear Urine pH 7.0 Ur Specific [place] 1.010 Urine Protein Negative Urine Glucose (UA) Negative Urine Ketones Negative Urine Blood Negative Urine Nitrite Negative Ur Leukocyte Esterase Negative Urine RBC 0-2 Urine WBC 0-5 Ur Squamous Epith Cells 6-10 Urine Bacteria 2+ Hyaline Casts 0-2 Urine Test NEGATIVE Random Vancomycin Urine Opiates Screen Not Detected Ur Buprenorphine Scrn Not Detected Ur Oxycodone Screen Not Detected Urine Methadone Screen Positive H Urine Fentanyl Screen Not Detected Ur Barbiturates Screen Not Detected Ur Phencyclidine Scrn Not Detected Ur Amphetamines Screen Not Detected U Benzodiazepines Scrn POSITIVE H Urine Cocaine Screen Not Detected U Marijuana (THC) Screen Not Detected 11/04/23 11/04/23 11/04/23 15:07 17:39 20:42 WBC RBC Hgb Hct MCV MCH MCHC RDW Plt Count MPV Immature Gran % (Auto) Neut % (Auto) Lymph % (Auto) [place] % (Auto) Eos % (Auto) Baso % (Auto) Lymph # (Auto) [place] # (Auto) Eos # (Auto) Baso # (Auto) Abs Immat Gran (auto) Absolute Neuts (auto) Absolute Nucleated RBC Nucleated RBC % (auto) VBG pH 7.45 H VBG pCO2 37 VBG pO2 102 VBG HCO3 26 VBG O2 Saturation 99.0 VBG Base Excess 2.9 Sodium Potassium Chloride Carbon Dioxide Anion Gap BUN Creatinine Estim Creat Clear Calc Estimated GFR POC Glucose 156 H 166 H Random Glucose Lactic Acid F/U @ 2Hr Lactic Acid F/U @ 4Hr Calcium Phosphorus Magnesium Ammonia Albumin TSH Urine Color Urine Appearance Urine pH Ur Specific [place] Urine Protein Urine Glucose (UA) Urine Ketones Urine Blood Urine Nitrite Ur Leukocyte Esterase Urine RBC Urine WBC Ur Squamous Epith Cells Urine Bacteria Hyaline Casts Urine Test Random Vancomycin Urine Opiates Screen Ur Buprenorphine Scrn Ur Oxycodone Screen Urine Methadone Screen Urine Fentanyl Screen Ur Barbiturates Screen Ur Phencyclidine Scrn Ur Amphetamines Screen U Benzodiazepines Scrn Urine Cocaine Screen U Marijuana (THC) Screen 11/05/23 11/05/23 11/05/23 07:04 07:17 07:22 WBC 8.5 RBC 3.79 L Hgb 9.9 L Hct 30.8 L MCV 81.3 MCH 26.1 L MCHC 32.1 RDW 18.5 H Plt Count 218 MPV 10.6 Immature Gran % (Auto) 1.4 H Neut % (Auto) 81.6 H Lymph % (Auto) 10.9 L [place] % (Auto) 4.9 Eos % (Auto) 0.7 Baso % (Auto) 0.5 Lymph # (Auto) 0.9 L [place] # (Auto) 0.4 Eos # (Auto) 0.1 Baso # (Auto) 0.0 Abs Immat Gran (auto) 0.12 H Absolute Neuts (auto) 6.9 Absolute Nucleated RBC 0.000 Nucleated RBC % (auto) 0.0 VBG pH 7.39 VBG pCO2 46 VBG pO2 45 VBG HCO3 28 H VBG O2 Saturation 74.0 VBG Base Excess 3.2 Sodium 138 Potassium 3.9 Chloride 105 Carbon Dioxide 26 Anion Gap 11 L BUN 10 Creatinine 0.82 Estim Creat Clear Calc 147.2 Estimated GFR > 60 POC Glucose 163 H Random Glucose 168 H Lactic Acid F/U @ 2Hr Lactic Acid F/U @ 4Hr Calcium 8.0 L D Phosphorus 2.9 Magnesium 2.0 Ammonia Albumin 3.1 L TSH Urine Color Urine Appearance Urine pH Ur Specific [place] Urine Protein Urine Glucose (UA) Urine Ketones Urine Blood Urine Nitrite Ur Leukocyte Esterase Urine RBC Urine WBC Ur Squamous Epith Cells Urine Bacteria Hyaline Casts Urine Test Random Vancomycin Urine Opiates Screen Ur Buprenorphine Scrn Ur Oxycodone Screen Urine Methadone Screen Urine Fentanyl Screen Ur Barbiturates Screen Ur Phencyclidine Scrn Ur Amphetamines Screen U Benzodiazepines Scrn Urine Cocaine Screen U Marijuana (THC) Screen 11/05/23 11/05/23 11/06/23 11:20 20:23 05:10 WBC RBC Hgb Hct MCV MCH MCHC RDW Plt Count MPV Immature Gran % (Auto) Neut % (Auto) Lymph % (Auto) [place] % (Auto) Eos % (Auto) Baso % (Auto) Lymph # (Auto) [place] # (Auto) Eos # (Auto) Baso # (Auto) Abs Immat Gran (auto) Absolute Neuts (auto) Absolute Nucleated RBC Nucleated RBC % (auto) VBG pH VBG pCO2 VBG pO2 VBG HCO3 VBG O2 Saturation VBG Base Excess Sodium Potassium Chloride Carbon Dioxide Anion Gap BUN Creatinine Estim Creat Clear Calc Estimated GFR POC Glucose 146 H 122 H Random Glucose Lactic Acid F/U @ 2Hr Lactic Acid F/U @ 4Hr Calcium Phosphorus Magnesium Ammonia Albumin TSH Urine Color Urine Appearance Urine pH Ur Specific [place] Urine Protein Urine Glucose (UA) Urine Ketones Urine Blood Urine Nitrite Ur Leukocyte Esterase Urine RBC Urine WBC Ur Squamous Epith Cells Urine Bacteria Hyaline Casts Urine Test Random Vancomycin 9.6 L Urine Opiates Screen Ur Buprenorphine Scrn Ur Oxycodone Screen Urine Methadone Screen Urine Fentanyl Screen Ur Barbiturates Screen Ur Phencyclidine Scrn Ur Amphetamines Screen U Benzodiazepines Scrn Urine Cocaine Screen U Marijuana (THC) Screen 11/06/23 11/06/23 11/06/23 05:55 07:44 10:48 WBC 7.0 RBC 4.66 D Hgb 12.2 D Hct 38.2 D MCV 82.0 MCH 26.2 L MCHC 31.9 RDW 19.3 H Plt Count 207 MPV 10.3 Immature Gran % (Auto) 1.3 H Neut % (Auto) 72.6 Lymph % (Auto) 17.9 L [place] % (Auto) 5.5 Eos % (Auto) 2.3 Baso % (Auto) 0.4 Lymph # (Auto) 1.3 [place] # (Auto) 0.4 Eos # (Auto) 0.2 Baso # (Auto) 0.0 Abs Immat Gran (auto) 0.09 H Absolute Neuts (auto) 5.1 Absolute Nucleated RBC 0.000 Nucleated RBC % (auto) 0.0 VBG pH VBG pCO2 VBG pO2 VBG HCO3 VBG O2 Saturation VBG Base Excess Sodium 138 Potassium 3.9 Chloride 109 H Carbon Dioxide 21 L Anion Gap 12 BUN 7 L Creatinine 0.70 Estim Creat Clear Calc 172.5 Estimated GFR > 60 POC Glucose 140 H 190 H Random Glucose 129 H Lactic Acid F/U @ 2Hr Lactic Acid F/U @ 4Hr Calcium 8.7 D Phosphorus 3.4 Magnesium 2.3 Ammonia Albumin TSH Urine Color Urine Appearance Urine pH Ur Specific [place] Urine Protein Urine Glucose (UA) Urine Ketones Urine Blood Urine Nitrite Ur Leukocyte Esterase Urine RBC Urine WBC Ur Squamous Epith Cells Urine Bacteria Hyaline Casts Urine Test Random Vancomycin Urine Opiates Screen Ur Buprenorphine Scrn Ur Oxycodone Screen Urine Methadone Screen Urine Fentanyl Screen Ur Barbiturates Screen Ur Phencyclidine Scrn Ur Amphetamines Screen U Benzodiazepines Scrn Urine Cocaine Screen U Marijuana (THC) Screen Imaging Radiology Impressions: ITS Impressions Chest X-Ray 11/04/23 10:55 IMPRESSION: No radiographic evidence of pneumonia. Abdomen/Pelvis CT 11/04/23 13:38 IMPRESSION: * No specific source of right lower quadrant pain is identified. No evidence of appendicitis. * Obesity, hepatosplenomegaly and diffuse hepatic steatosis (or steatohepatitis). * Small stone of the lower pole of the left kidney. No ureteral stones or hydroureteronephrosis. * There is mild inguinal and external iliac lymphadenopathy. Since the superficial right inguinal lymph nodes are larger than those seen on the left, query if there is any soft tissue inflammatory process in the right lower extremity which could cause a mild reactive lymphadenopathy. Chest X-Ray 11/04/23 14:50 IMPRESSION: Very limited though grossly clear frontal and lateral chest radiographs. Head CT 11/04/23 15:34 IMPRESSION: No acute intracranial pathology. Mental Status Exam Mental Status Exam Patient Appearance: Appropriate Patient Orientation: Person, Place, Time and Situation Level of Consciousness: Awake, Appropriate and Alert Patient Behavior: Appropriate and Talkative Mood Description: Calm Affect Description: Calm Speech Pattern: Clear Medications Medications Current Medications Acetaminophen (Acetaminophen 325 Mg Tablet) 650 mg PO Q6H PRN PRN Reason: Pain, Moderate(Pain Scale 4-6) Last Admin: 11/06/23 09:17 Dose: 650 mg Albuterol Sulfate (Albuterol Sulfate 90 Mcg 8 Gm Inhaler) 2 puff INHALE Q6H PRN PRN Reason: Shortness Of Breath Or Wheezing Alprazolam (Alprazolam 0.5 Mg Tablet) 1 mg PO QID PRN PRN Reason: Anxiety Last Admin: 11/06/23 05:22 Dose: 1 mg Aspirin (Aspirin Enteric Coated 81 Mg Tablet.) 81 mg PO DAILY [facility] Last Admin: 11/06/23 09:19 Dose: 81 mg Diclofenac Sodium (Diclofenac Sodium Delayed Rel 75 Mg Tablet.) 75 mg PO BID@1200,2100 [facility] Last Admin: 11/05/23 19:57 Dose: 75 mg Diclofenac Sodium (Diclofenac Sodium Delayed Rel 75 Mg Tablet.) 150 mg PO DAILY [facility] Last Admin: 11/06/23 09:15 Dose: 150 mg Diphenhydramine HCl (Diphenhydramine Hcl 25 Mg Capsule) 75 mg PO BEDTIME PRN PRN Reason: insomnia Heparin Sodium (Porcine) (Heparin Sodium,Porcine 5,000 Unit/Ml Vial) 5,000 unit SUBCUT Q8H [facility] Last Admin: 11/06/23 08:52 Dose: Not Given Piperacillin Sod/Tazobactam (Sod 3.375 gm/ Sodium Chloride) 50 mls @ 100 mls/hr IV Q6H [facility] Last Infusion: 11/06/23 09:49 Dose: Infused Vancomycin HCl 1,500 mg/ (Sodium Chloride) 500 mls @ 333.333 mls/hr IV Q12H [facility] Last Admin: 11/06/23 10:29 Dose: 333.33 mls/hr Insulin Human Lispro (Insulin Lispro 100 Unit/Ml 3 Ml Vial) 0 unit SUBCUT QIDACHS [facility]; Protocol Last Admin: 11/06/23 08:52 Dose: Not Given Lactic Acid (Ammonium Lactate 12 % Lotion 226 Gm Bottle) 1 appl TOPICAL BID [facility]; Protocol Lamotrigine (Lamotrigine 100 Mg Tablet) 400 mg PO BEDTIME [facility] Last Admin: 11/05/23 19:59 Dose: 400 mg Levothyroxine Sodium (Levothyroxine Sodium 112 Mcg Tablet) 112 mcg PO DAILY@0600 [facility] Last Admin: 11/06/23 05:21 Dose: 112 mcg Lurasidone HCl (Lurasidone Hcl 80 Mg Tablet) 80 mg PO DAILY [facility] Last Admin: 11/06/23 11:16 Dose: Not Given Methadone HCl (Methadone Hcl 20 Mg/2 Ml Oral.Conc) 50 mg PO DAILY@1800 NISSA Methadone HCl (Methadone Hcl 20 Mg/2 Ml Oral.Conc) 90 mg PO DAILY [facility] Multivitamins/Vitamin C (Multivitamin Tablet) 1 tab PO DAILY [facility] Last Admin: 11/06/23 09:12 Dose: 1 tab Nicotine Polacrilex (Nicotine Polacrilex Lozenge 4 Mg Lozenge) 4 mg BUCCAL Q1H PRN PRN Reason: Nicotine Cravings Omeprazole (Omeprazole 20 Mg Capsule.Dr) 20 mg PO DAILY@0630 [facility] Last Admin: 11/06/23 05:21 Dose: 20 mg Pharmacy Consult (Consult Rx Vancomycin Dosing) 1 each MISCELLANE DAILY PRN PRN Reason: Consult order Prazosin HCl (Prazosin Hcl 5 Mg Capsule) 5 mg PO BID [facility]; Protocol Last Admin: 11/06/23 10:32 Dose: 5 mg Pregabalin (Pregabalin 150 Mg Capsule) 300 mg PO BID [facility] Last Admin: 11/06/23 09:13 Dose: 300 mg Promethazine HCl (Promethazine Hcl 25 Mg Tablet) 50 mg PO TID PRN PRN Reason: Nausea and Vomiting Last Admin: 11/06/23 09:11 Dose: 50 mg Torsemide (Torsemide 20 Mg Tablet) 40 mg PO DAILY [facility]; Protocol Last Admin: 11/06/23 10:31 Dose: 40 mg Torsemide (Torsemide 20 Mg Tablet) 20 mg PO BEDTIME [facility]; Protocol Zolpidem Tartrate (Zolpidem Tartrate 5 Mg Tablet) 5 mg PO BEDTIME [facility] Last Admin: 11/05/23 20:00 Dose: 5 mg Allergies Allergies Allergy/AdvReac Type Severity Reaction Status Date / Time cephalexin Allergy Unknown Verified 11/04/23 09:16 Assessment & Plan Assessment & Plan (1) Opioid use disorder, severe, in early remission: Status: Acute Code(s): F11.21 - Opioid dependence, in remission Assessment and Plan: mental status much improved. EKG showing shortened QT can resume outpatient dose of methadone requesting to meet with Agitator Operator this evening --referral placed no additional follow up necessary at this time Total time managing care of this patient today _35___ minutes. PENDING SALE TO [facility] Social History Social History Household Members: Unknown / Unable to assess Housing: Unknown / Unable to assess Comment: pt refusing all alarms and precautions Patient Tobacco Use Status: Tobacco use Unknown Smoked in Last 30 Days: Yes Use of substances other than those prescribed or required for medical reasons: Unable to respond Substance Use Type: Unknown Currently Displaying Signs/Symptoms of Drug Intoxication Withdrawal: No Any prior treatment program specific to substance use: Yes Spiritual Healthcare Practices: unknown Advance Directives: No Advance Directives Information Provided: Yes Do you have a plan to hurt others: Vague Recently lost weight without trying: Unsure How much weight loss: Unsure service: No
--- NOTE | 2023-11-06 12:24 | P.PNIM_ITS ---
Subjective Subjective Date of Service: 11/06/23 Interval History: RLE still erythematous and swollen reporting pain denies fever or chills Cultures remain negative after 48 hours Review of Systems Review of Systems: Yes all other systems are reviewed and are negative Physical Exam 2 Vital Signs: Vital Signs: Last Vital Signs Temp 97.2 F 11/06/23 11:43 Pulse 55 11/06/23 11:43 Resp 18 11/06/23 11:43 BP 136/79 11/06/23 11:43 Pulse Ox 94 11/06/23 11:43 O2 Del Method Room Air 11/06/23 11:43 O2 Flow Rate 2 11/06/23 07:57 BMI result Body Mass Index 50.3 Const: Other: Constitutional : Awake, interactive, morbidely obese, not in distress Neck : Normal inspection, Supple Cardiovascular : RRR, no JVP, +1 RLE lower extremity edema less on left Respiratory : good bilateral air entry, no crackles, wheezes or rhonchi Gastrointestinal: soft, lax, Normal bowel sounds, Non tender Skin : Warm, Dry, improving erythema RLE , Neurological : Alert & oriented x3, No focal deficit Objective Data Active Medications Acetaminophen (Acetaminophen 325 Mg Tablet) 650 mg PO Q6H PRN PRN Reason: Pain, Moderate(Pain Scale 4-6) Last Admin: 11/06/23 09:17 Dose: 650 mg Documented By: NASIR Albuterol Sulfate (Albuterol Sulfate 90 Mcg 8 Gm Inhaler) 2 puff INHALE Q6H PRN PRN Reason: Shortness Of Breath Or Wheezing Alprazolam (Alprazolam 0.5 Mg Tablet) 1 mg PO QID PRN PRN Reason: Anxiety Last Admin: 11/06/23 05:22 Dose: 1 mg Documented By: NIKI Aspirin (Aspirin Enteric Coated 81 Mg Tablet.) 81 mg PO DAILY [facility] Last Admin: 11/06/23 09:19 Dose: 81 mg Documented By: NASIR Diclofenac Sodium (Diclofenac Sodium Delayed Rel 75 Mg Tablet.) 75 mg PO BID@1200,2100 [facility] Last Admin: 11/05/23 19:57 Dose: 75 mg Documented By: NIKI Diclofenac Sodium (Diclofenac Sodium Delayed Rel 75 Mg Tablet.) 150 mg PO DAILY [facility] Last Admin: 11/06/23 09:15 Dose: 150 mg Documented By: NASIR Diphenhydramine HCl (Diphenhydramine Hcl 25 Mg Capsule) 75 mg PO BEDTIME PRN PRN Reason: insomnia Heparin Sodium (Porcine) (Heparin Sodium,Porcine 5,000 Unit/Ml Vial) 5,000 unit SUBCUT Q8H [facility] Last Admin: 11/06/23 08:52 Dose: Not Given Documented By: NASIR Non-Admin Reason: Patient Refused Piperacillin Sod/Tazobactam (Sod 3.375 gm/ Sodium Chloride) 50 mls @ 100 mls/hr IV Q6H [facility] Last Infusion: 11/06/23 09:49 Dose: Infused Documented By: NASIR Vancomycin HCl 1,500 mg/ (Sodium Chloride) 500 mls @ 333.333 mls/hr IV Q12H [facility] Last Admin: 11/06/23 10:29 Dose: 333.33 mls/hr Documented By: NASIR Insulin Human Lispro (Insulin Lispro 100 Unit/Ml 3 Ml Vial) 0 unit SUBCUT QIDACHS [facility]; Protocol Last Admin: 11/06/23 12:13 Dose: Not Given Documented By: NASIR Non-Admin Reason: No Insulin Coverage Lactic Acid (Ammonium Lactate 12 % Lotion 226 Gm Bottle) 1 appl TOPICAL BID [facility]; Protocol Lamotrigine (Lamotrigine 100 Mg Tablet) 400 mg PO BEDTIME [facility] Last Admin: 11/05/23 19:59 Dose: 400 mg Documented By: NIKI Levothyroxine Sodium (Levothyroxine Sodium 112 Mcg Tablet) 112 mcg PO DAILY@0600 [facility] Last Admin: 11/06/23 05:21 Dose: 112 mcg Documented By: NIKI Lurasidone HCl (Lurasidone Hcl 80 Mg Tablet) 80 mg PO DAILY [facility] Last Admin: 11/06/23 11:16 Dose: Not Given Documented By: NASIR Non-Admin Reason: Patient Refused Methadone HCl (Methadone Hcl 20 Mg/2 Ml Oral.Conc) 50 mg PO DAILY@1800 [facility] Methadone HCl (Methadone Hcl 20 Mg/2 Ml Oral.Conc) 90 mg PO DAILY [facility] Multivitamins/Vitamin C (Multivitamin Tablet) 1 tab PO DAILY [facility] Last Admin: 11/06/23 09:12 Dose: 1 tab Documented By: NASIR Nicotine Polacrilex (Nicotine Polacrilex Lozenge 4 Mg Lozenge) 4 mg BUCCAL Q1H PRN PRN Reason: Nicotine Cravings Omeprazole (Omeprazole 20 Mg Capsule.Dr) 20 mg PO DAILY@0630 [facility] Last Admin: 11/06/23 05:21 Dose: 20 mg Documented By: NIKI Pharmacy Consult (Consult Rx Vancomycin Dosing) 1 each MISCELLANE DAILY PRN PRN Reason: Consult order Prazosin HCl (Prazosin Hcl 5 Mg Capsule) 5 mg PO BID [facility]; Protocol Last Admin: 11/06/23 10:32 Dose: 5 mg Documented By: NASIR Pregabalin (Pregabalin 150 Mg Capsule) 300 mg PO BID [facility] Last Admin: 11/06/23 09:13 Dose: 300 mg Documented By: NASIR Promethazine HCl (Promethazine Hcl 25 Mg Tablet) 50 mg PO TID PRN PRN Reason: Nausea and Vomiting Last Admin: 11/06/23 09:11 Dose: 50 mg Documented By: NASIR Torsemide (Torsemide 20 Mg Tablet) 40 mg PO DAILY [facility]; Protocol Last Admin: 11/06/23 10:31 Dose: 40 mg Documented By: NASIR Torsemide (Torsemide 20 Mg Tablet) 20 mg PO BEDTIME [facility]; Protocol Zolpidem Tartrate (Zolpidem Tartrate 5 Mg Tablet) 5 mg PO BEDTIME [facility] Last Admin: 11/05/23 20:00 Dose: 5 mg Documented By: NIKI Labs 11/06/23 05:55 11/06/23 05:55 Labs: Laboratory Results - last 24 hr 11/05/23 11/06/23 11/06/23 20:23 05:10 05:55 MCV 82.0 MCH 26.2 L MCHC 31.9 RDW 19.3 H Plt Count 207 MPV 10.3 Immature Gran % (Auto) 1.3 H Neut % (Auto) 72.6 Lymph % (Auto) 17.9 L [place] % (Auto) 5.5 Eos % (Auto) 2.3 Baso % (Auto) 0.4 Lymph # (Auto) 1.3 [place] # (Auto) 0.4 Eos # (Auto) 0.2 Baso # (Auto) 0.0 Abs Immat Gran (auto) 0.09 H Absolute Neuts (auto) 5.1 Absolute Nucleated RBC 0.000 Nucleated RBC % (auto) 0.0 Anion Gap 12 Estim Creat Clear Calc 172.5 Estimated GFR > 60 POC Glucose 122 H Random Glucose 129 H Calcium 8.7 D Phosphorus 3.4 Magnesium 2.3 Random Vancomycin 9.6 L 11/06/23 11/06/23 07:44 10:48 MCV MCH MCHC RDW Plt Count MPV Immature Gran % (Auto) Neut % (Auto) Lymph % (Auto) [place] % (Auto) Eos % (Auto) Baso % (Auto) Lymph # (Auto) [place] # (Auto) Eos # (Auto) Baso # (Auto) Abs Immat Gran (auto) Absolute Neuts (auto) Absolute Nucleated RBC Nucleated RBC % (auto) Anion Gap Estim Creat Clear Calc Estimated GFR POC Glucose 140 H 190 H Random Glucose Calcium Phosphorus Magnesium Random Vancomycin Microbiology Microbiology Results: Microbiology 11/04/23 10:01 Blood Culture - Preliminary Blood - Venous No growth after 48 hours. 11/04/23 09:35 Blood Culture - Preliminary Blood - Venous No growth after 48 hours. Assessment and Plan (1) Opioid dependence: Status: Acute (2) Cellulitis: Status: Acute (3) Septic shock: Status: Acute Plan A 38-year-old lady with underlying history of IV drug abuse and opioid dependence on methadone admitted with septic shock with unclear source admitted to ICU for requiring pressor support. Acute toxic metabolic Encephalopathy resolved. 2/2 opioid dependence and psychiatric polypharmacy improved to baseline addiction team following Septic shock 2/2 Right lower extremity cellulitis Cultures are pending but negative Continue broad-spectrum antibiotics Ammoium lactate lotion keep leg elevated follow Vanco trough Morbid obesity advised weight loss Opioid dependence restart full methadone dose Smoking Nicotine RT Prophylaxis: Heparin Diet: Regular The patient will need overnight stay pending finalized vultures, on IV Abx pending clinical improvement Quality Stroke Does the patient have a stroke diagnosis?: No VTE Prior VTE?: No VTE Risk Level:: Medical - moderate - high VTE Device Contraindication: Treatment Not Indicated VTE Drug Contraindication: N/A - Med Ordered
[2023-11-06] MEDS: Diclofenac Sodium Delayed Rel 75 MG TABLET.DR PO ×2 (13:06→20:17)
[2023-11-06] MEDS: Ammonium Lactate 12 % Lotion 226 GM BOTTLE 1 APPL TOPICAL ×2 (13:07→20:23)
[2023-11-06 16:24] LABS: Glucose, Whole Blood 181 mg/dL (60-115)
[2023-11-06] MEDS: diphenhydrAMINE HCL 25 MG CAPSULE 75 MG PO (20:18)
[2023-11-06] MEDS: lamoTRIgine 100 MG TABLET 400 MG PO (20:21)
[2023-11-06] MEDS: Zolpidem Tartrate 5 MG TABLET PO (20:21)
[2023-11-06] MEDS: Torsemide 20 MG TABLET PO (20:27)
[2023-11-06 20:33] LABS: Vancomycin Random 13.7 mcg/mL (15-20)
--- NOTE | 2023-11-06 20:49 | HE.PHANOTE ---
Vancomycin Dosing Level 13.7 today, however patient refused 11/04 2200 dose of vancomycin therefore level is not accurate. Patient only received one dose of vancomycin 1500 mg. Will continue on same dose of vancomycin 1000 mg Q12H. Predicted AUC is 564 with a trough of 16.4. Will get another level in 24 hours on 11/06 @ 1999. Yao GandhiD
[2023-11-07 03:40] VITALS: BP 125/73; PULSE 60; RESP 15; TEMP 36.3; O2SAT 92
[2023-11-07] MEDS: ALPRAZolam 0.5 MG TABLET 1 MG PO (05:46)
[2023-11-07] MEDS: Omeprazole 20 MG CAPSULE.DR PO (05:46)
[2023-11-07] MEDS: Levothyroxine Sodium 112 MCG TABLET PO (05:47)
[2023-11-07] MEDS: Piperacillin Sodium/Tazobactam 3.375 GM in 0.9 % Sodium Chloride 50 ML IV ×2 (05:48→07:58)
[2023-11-07 07:09] VITALS: BP 135/77; PULSE 54; RESP 20; TEMP 36.1; O2SAT 94
[2023-11-07 07:23] LABS: Anion Gap 13 (12-20); Blood Urea Nitrogen 8 mg/dL (9-16); Calcium 8.9 mg/dL (8.4-10.2); Carbon Dioxide 21 mmol/L (22-29); Chloride 110 mmol/L (96-108); Creatinine Clr Calc Pharmacy 140.3; Estimated Glomerular Filt Rate > 60; Glucose Random 146 mg/dL (60-115); Potassium 4.4 mmol/L (3.3-5.1); Sodium 140 mmol/L (135-145)
[2023-11-07 07:51] VITALS: BP 135/77
[2023-11-07] MEDS: Multivitamin TABLET 1 TAB PO (07:51)
[2023-11-07] MEDS: Prazosin HCL 5 MG CAPSULE PO (07:51)
[2023-11-07] MEDS: Torsemide 20 MG TABLET 40 MG PO (07:51)
[2023-11-07] MEDS: Pregabalin 150 MG CAPSULE 300 MG PO (07:51)
[2023-11-07] MEDS: Aspirin Enteric Coated 81 MG TABLET.DR PO (07:52)
[2023-11-07] MEDS: Diclofenac Sodium Delayed Rel 75 MG TABLET.DR 150 MG PO (07:52)
[2023-11-07] MEDS: methADONE HCl 20 MG/2 ML ORAL.CONC 120 MG PO (07:53)
[2023-11-07] MEDS: Ammonium Lactate 12 % Lotion 226 GM BOTTLE 1 APPL TOPICAL (07:54)
--- NOTE | 2023-11-07 10:26 | P.DS_ITS ---
DS: Providers Provider Date of Service: 11/07/23 Date of admission: 11/04/23 16:03 Primary care physician: Unknown Physician Consults: 11/05/23 12:58 Addiction Medicine Routine Consulting Provider: Addiction Covering Reason for consultation: high dose methadone, qt prolonged DS: Diagnosis Discharge Diagnosis (1) Opioid dependence: Status: Acute (2) Cellulitis: Status: Acute (3) Septic shock: Status: Acute (4) Septic encephalopathy: Status: Acute (5) Acute lactic acidosis: Status: Acute (6) Acute alteration in mental status: Status: Acute (7) Hypotension: Status: Acute DS: Summary Hospital Course Hospital Course: Admission note HPI 38-year-old lady with underlying opioid dependence on methadone admitted on 11/04/2023 with complains of alteration of mental status and fevers. On ER evaluation leukocytosis with left shift and hypotension with poor response to initial IV fluids requiring initiation of pressor support. CT head with no acute findings. Started on broad-spectrum antibiotics and admitted to the intensive care unit. Hospital course The patient was admitted in state of Acute toxic metabolic Encephalopathy secondary to opioid dependence and psychiatric polypharmacy that has improved back to baseline during hospital stay. she was followed by addiciton team as tox screen showed +ve for Benzos and advised to avoid any kind of drugs. She was found in Septic shock secondary to Right lower extremity cellulitis requiring ICU admission and Pressors for short period of time. Blood Cultures came back negative as she was treated with broad-spectrum antibiotics of Vancomycin and Zosyn with good response as erythema, pain and swelling significantly improved within the marked area in her leg. Applied Ammoium lactate lotion for dry skin and itching. kept leg elevated. To be discharged on 10 more days of Doxycycline and Augmentin. # Morbid obesity, advised weight loss # Opioid dependence , Started on a lower dose as she was seen by addiciton team before returning back to full methadone dose. To continue on discharge Discharge plan Keep leg elevated apply moisurizing creams and avoid itching Continue Doxycycline and Augmetin for 10 more days Avoid drugs Time Attestation Discharge Coordination Time (in mins): 38 Quality: Safe Use of Opioids Does Pt have an Active Cancer Diagnosis on the Problem List?: No Quality: Stroke Does the patient have a stroke diagnosis?: No Physical Exam Vital Signs: Vital Signs: Last Vital Signs Temp 96.9 F 11/07/23 07:09 Pulse 54 06/21/24 07:09 Resp 20 11/07/23 07:09 BP 135/77 11/07/23 07:51 Pulse Ox 94 11/07/23 07:09 O2 Del Method Room Air 11/07/23 07:09 O2 Flow Rate 2 11/07/23 03:40 BMI result Body Mass Index 50.3 Const: Other: Constitutional : Awake, interactive, morbidely obese, not in distress Neck : Normal inspection, Supple Cardiovascular : RRR, no JVP, trace RLE lower extremity edema less on left Respiratory : good bilateral air entry, no crackles, wheezes or rhonchi Gastrointestinal: soft, lax, Normal bowel sounds, Non tender Skin : Warm, Dry, resolving erythema RLE , Neurological : Alert & oriented x3, No focal deficit DS: Data Data Completed and Pending Labs on day of discharge: Laboratory Results - last 24 hr 11/06/23 11/06/23 11/06/23 10:48 16:14 20:02 Hold Purple Top Sodium Potassium Chloride Carbon Dioxide Anion Gap BUN Creatinine Estim Creat Clear Calc Estimated GFR POC Glucose 190 H 181 H Random Glucose Calcium Random Vancomycin 13.7 L 11/07/23 06:44 Hold Purple Top SEE NOTE Sodium 140 Potassium 4.4 Chloride 110 H Carbon Dioxide 21 L Anion Gap 13 BUN 8 L Creatinine 0.86 Estim Creat Clear Calc 140.3 Estimated GFR > 60 POC Glucose Random Glucose 146 H Calcium 8.9 Random Vancomycin Preliminary micro results at discharge 11/04/23 10:01 Blood Culture - Preliminary Blood - Venous No growth after 48 hours. 11/04/23 09:35 Blood Culture - Preliminary Blood - Venous No growth after 48 hours. Imaging Chest x-ray: Radiologist's impression: ITS Impressions Chest X-Ray 11/04/23 10:55 IMPRESSION: No radiographic evidence of pneumonia. Abdomen/Pelvis CT 11/04/23 13:38 IMPRESSION: * No specific source of right lower quadrant pain is identified. No evidence of appendicitis. * Obesity, hepatosplenomegaly and diffuse hepatic steatosis (or steatohepatitis). * Small stone of the lower pole of the left kidney. No ureteral stones or hydroureteronephrosis. * There is mild inguinal and external iliac lymphadenopathy. Since the superficial right inguinal lymph nodes are larger than those seen on the left, query if there is any soft tissue inflammatory process in the right lower extremity which could cause a mild reactive lymphadenopathy. Chest X-Ray 11/04/23 14:50 IMPRESSION: Very limited though grossly clear frontal and lateral chest radiographs. Head CT 11/04/23 15:34 IMPRESSION: No acute intracranial pathology. Discharge Plan Discharge Anticipated Discharge Date/Time: 11/07/23 10:18 Patient Disposition: Home, Self-Care Discharge Diagnosis: Septic shock cellulitis Referrals: Physician,Unknown J [Primary Care Provider] - 1 Week Discharge Medications: New doxycycline monohydrate 100 mg capsule 100 mg PO BID Qty: 20 0RF amoxicillin-pot clavulanate 875-125 mg tablet 1 tab PO BID Qty: 20 0RF Continued lamotrigine 200 mg tablet 400 mg PO BEDTIME alprazolam 1 mg tablet 1 mg PO QID PRN (Reason: Anxiety) potassium chloride 10 mEq tablet extended release 20 meq PO DAILY aspirin 81 mg tablet,delayed release (DR/EC) 81 mg PO DAILY triamcinolone acetonide 0.1 % cream 1 appl topical BID promethazine 50 mg tablet 100 mg PO BID@1200,2100 Rx Instructions: At noon and bedtime diphenhydramine HCl [Banophen] 25 mg tablet 75 mg PO BEDTIME PRN (Reason: insomnia) omeprazole 20 mg capsule,delayed release(DR/EC) 20 mg PO DAILY@0630 diclofenac sodium 75 mg tablet,delayed release (DR/EC) 75 mg PO BID@1200,2100 Rx Instructions: At noon and at bedtime zolpidem 10 mg tablet 10 mg PO BEDTIME albuterol sulfate [Ventolin HFA] 90 mcg/actuation HFA aerosol inhaler 2 puff inhalation Q6H PRN (Reason: Shortness Of Breath Or Wheezing) doxazosin 2 mg tablet 2 mg PO BEDTIME levothyroxine 112 mcg tablet 112 mcg PO DAILY@0600 pregabalin 150 mg capsule 300 mg PO BID lurasidone 80 mg tablet 80 mg PO DAILY acetaminophen 325 mg tablet 650 mg PO Q6H PRN (Reason: pain) torsemide 20 mg tablet 40 mg PO DAILY prazosin 5 mg capsule 5 mg PO BID promethazine 50 mg tablet 100 mg PO DAILY Rx Instructions: 2 tablets at 5:30am diclofenac sodium 75 mg tablet,delayed release (DR/EC) 150 mg PO DAILY multivitamin with folic acid [Tab-A-[place]] 400 mcg Tablet 1 tab PO DAILY torsemide 20 mg tablet 20 mg PO BEDTIME methadone 10 mg/5 mL Solution 120 mg PO DAILY methadone 10 mg/5 mL Solution 75 mg PO DAILY@1800 Discharge Orders: Discharge Order (Routine); Ordered 11/07/23 Ordered By: Fani Haas Diet: Advance to usual diet Activity on Discharge: As tolerated Stand Alone Forms: Patient Portal Discharge page Print Language: [place] Care Plan Goals: Keep leg elevated apply moisurizing creams and avoid itching Continue Doxycycline and Augmetin for 10 more days Avoid drugs Health Concerns: Read below Plan of Treatment: Read below Assessment: Read below
--- NOTE | 2023-11-07 10:46 | MHC.CM.PN ---
Pt has been medically cleared for DC, she will go home via private transport, self care.
--- NOTE | 2023-11-11 23:32 | PC.NURSE ---
On 11/05 @ 20:10. Patient Elmira Rios, complained of anxiety. patient was given dose of 1mg ALPRAZolam. The nurse responsible discarded the medication container without scanning QR-code. Patient was observed to have taken both 0.5mg pills of ALPRAZolam to make the cumulative dose of 1mg total. This administration is being documented in nursing notes due to the missed documentation in the MAR.
== END 2023-11-07 11:15 | disposition home or self-care (01) | DRG 720 ==
LOC: HO.ED 15:54 → HO.EDOVER 16:04 → HO.ICU 16:06 → HO.IMC 11-05 11:14
PROVIDERS: Internal Medicine; Physician Assistant Medical; Admitting Provider Internal Medicine Pulmonary Disease; Emergency Provider Emergency Medicine; Visit Provider Student in an Organized Health Care Education/Training Program
DX: A41.9 Sepsis, unspecified organism (principal); R65.21 Severe sepsis with septic shock; G92.8 Other toxic encephalopathy; E87.21 Acute metabolic acidosis; L03.115 Cellulitis of right lower limb; E03.9 Hypothyroidism, unspecified; E66.01 Morbid (severe) obesity due to excess calories; R94.31 Abnormal electrocardiogram [ECG] [EKG]; Z68.43 Body mass index [BMI] 50.0-59.9, adult; F11.20 Opioid dependence, uncomplicated; Z20.822 Contact with and (suspected) exposure to COVID-19; Z79.82 Long term (current) use of aspirin; Z79.890 Hormone replacement therapy; Z79.899 Other long term (current) drug therapy
CPT/HCPCS: 0241U; 36415; 70450; 71046; 74176; 80048; 80053; 80202; 80307; 81001; 81025; 82040; 82140; 82803; 82947; 83605; 83735; 83880; 84100; 84443; 84484; 85007; 85025; 85027; 85610; 85730; 87040; 87651; 93005; 99285; J1644; J1885; J2543; J3370; J3371

== ENCOUNTER → 2023-11-04 09:17 | Outpatient (BNV) | payer OTHER, SELFPAY | PROVIDERS: Emergency Provider Emergency Medicine; Visit Provider Internal Medicine Cardiovascular Disease | DX: R00.0 Tachycardia, unspecified (principal) | CPT/HCPCS: 93010 ==

== ENCOUNTER → 2023-11-04 11:54 | Outpatient (BNV) | payer OTHER, SELFPAY | PROVIDERS: Emergency Provider Emergency Medicine; Visit Provider Internal Medicine Pulmonary Disease | DX: A41.9 Sepsis, unspecified organism (principal); R65.21 Severe sepsis with septic shock; G93.41 Metabolic encephalopathy | CPT/HCPCS: 99232; 99291 ==

== ENCOUNTER 2023-11-04 16:03 | Outpatient (BNV) | payer OTHER, SELFPAY | END 2023-11-05 13:06 | PROVIDERS: Admitting Provider Internal Medicine Pulmonary Disease; Emergency Provider Emergency Medicine; Visit Provider Internal Medicine Cardiovascular Disease | DX: R41.82 Altered mental status, unspecified (principal) | CPT/HCPCS: 93010 ==

== ENCOUNTER → 2023-11-04 16:03 | Outpatient (BNV) | payer OTHER, SELFPAY | PROVIDERS: Admitting Provider Internal Medicine Pulmonary Disease; Emergency Provider Emergency Medicine; Visit Provider Nurse Practitioner Psychiatric/Mental Health | DX: F11.21 Opioid dependence, in remission (principal) | CPT/HCPCS: 99231 ==

== ENCOUNTER → 2023-11-04 16:03 | Outpatient (BNV) | payer OTHER, SELFPAY | PROVIDERS: Admitting Provider Internal Medicine Pulmonary Disease; Emergency Provider Emergency Medicine; Visit Provider Student in an Organized Health Care Education/Training Program | DX: F11.20 Opioid dependence, uncomplicated (principal); L03.90 Cellulitis, unspecified; A41.9 Sepsis, unspecified organism; R65.21 Severe sepsis with septic shock | CPT/HCPCS: 99232; 99239 ==

== ENCOUNTER 2024-01-22 11:06 | Emergency (ER) | payer OTHER, SELFPAY ==
[2024-01-22 11:16] VITALS: BP 155/74; PULSE 83; RESP 18; TEMP 36.8; O2SAT 95; BMI 55.9
--- NOTE | 2024-01-22 11:21 | ED.GENADULT ---
HPI - General Adult General Chief complaint: Recheck/Abnormal Lab/Rx Stated complaint: high blood sugar Time Seen by Provider: 01/22/24 16:07 Source: patient Mode of arrival: ambulatory Limitations: no limitations History of Present Illness ED Provider: Dr. Lili Salazar HPI narrative: And comes to the emergency room complaining of high blood sugar. According to the patient, patient states that her PCP called her and let her know that her blood glucose was 371. Patient states that she has been told multiple times that she has hyperglycemia but has never been diagnosed with diabetes. Patient states that she urinates quite a bit but she is on diuretics. Patient denies any chest pain or shortness of breath, no neuropathy symptoms. Related Data Home Medications ?Medication ?Instructions ?Recorded ?Confirmed acetaminophen 325 mg tablet 650 mg PO Q6H PRN pain 11/04/23 11/04/23 albuterol sulfate 90 mcg/actuation 2 puff inhalation Q6H PRN 11/04/23 11/04/23 aerosol inhaler (Ventolin HFA) Shortness Of Breath Or Wheezing alprazolam 1 mg tablet 1 mg PO QID PRN Anxiety 11/04/23 11/04/23 aspirin 81 mg tablet,delayed 81 mg PO DAILY 11/04/23 11/04/23 release diclofenac sodium 75 mg 75 mg PO BID@1200,2100 11/04/23 11/04/23 tablet,delayed release diclofenac sodium 75 mg 150 mg PO DAILY 11/04/23 11/04/23 tablet,delayed release diphenhydramine HCl 25 mg tablet 75 mg PO BEDTIME PRN insomnia 11/04/23 11/04/23 (Banophen) doxazosin 2 mg tablet 2 mg PO BEDTIME 11/04/23 11/04/23 lamotrigine 200 mg tablet 400 mg PO BEDTIME 11/04/23 11/04/23 levothyroxine 112 mcg tablet 112 mcg PO DAILY@0600 11/04/23 11/04/23 lurasidone 80 mg tablet 80 mg PO DAILY 11/04/23 11/04/23 multivitamin with folic acid 400 1 tab PO DAILY 11/04/23 11/04/23 mcg tablet (Tab-A-[place]) omeprazole 20 mg capsule,delayed 20 mg PO DAILY@0630 11/04/23 11/04/23 release potassium chloride 10 mEq 20 meq PO DAILY 11/04/23 11/04/23 tablet,extended release prazosin 5 mg capsule 5 mg PO BID 11/04/23 11/04/23 pregabalin 150 mg capsule 300 mg PO BID 11/04/23 11/04/23 promethazine 50 mg tablet 100 mg PO BID@1200,2100 11/04/23 11/04/23 promethazine 50 mg tablet 100 mg PO DAILY 11/04/23 11/04/23 torsemide 20 mg tablet 20 mg PO BEDTIME 11/04/23 11/04/23 torsemide 20 mg tablet 40 mg PO DAILY 11/04/23 11/04/23 triamcinolone acetonide 0.1 % 1 appl topical BID 11/04/23 11/04/23 topical cream zolpidem 10 mg tablet 10 mg PO BEDTIME insomnia 11/04/23 11/04/23 methadone 10 mg/5 mL oral solution 75 mg PO DAILY@1800 11/05/23 11/05/23 methadone 10 mg/5 mL oral solution 120 mg PO DAILY 11/05/23 11/05/23 Previous Rx's ?Medication ?Instructions ?Recorded amoxicillin 875 mg-potassium 1 tab PO BID #20 tabs 11/07/23 clavulanate 125 mg tablet doxycycline monohydrate 100 mg 100 mg PO BID #20 caps 11/07/23 capsule metformin 500 mg tablet 500 mg PO BID #60 tabs 01/22/24 Allergies Allergy/AdvReac Type Severity Reaction Status Date / Time cephalexin Allergy Unknown Verified 01/22/24 11:18 Review of Systems Review of Systems: Constitutional : No Weight loss, No Fever, No Chills, No Night Sweats, No Fatigue, No Malaise ENT/Mouth : No Hearing loss, No Ear Pain, No Nasal Congestion, No Sinus Pain, No Hoarseness, No sore throat, No Rhinorrhea, No Swallowing Difficulty Eyes: No Eye Pain, No Swelling, No Redness, No Foreign Body, No Discharge, No Vision Changes Cardiovascular : No Chest Pain, No SOB, No Dyspnea on Exertion, No Orthopnea, No Edema, No Palpitations Respiratory : No Cough, No Sputum, No Wheezing, No Smoke Exposure, No Dyspnea Gastrointestinal : No Nausea, No Vomiting, No Diarrhea, No Constipation, No abdominal Pain, No Hematochezia, No Melena Genitourinary : no irregular bleeding, No Dysuria, No Urinary Frequency, No Hematuria, No Urinary Incontinence, No Urgency, No Flank Pain, No Urinary Flow Changes, No Hesitancy Musculoskeletal : No joint pain, No Myalgias, No Joint Swelling Skin : No Skin Lesions, No rash Neuro : No Weakness, No Numbness, No Paresthesias, No Loss of Consciousness, No Dizziness, No Headache Psych : No Anxiety/Panic, No Depression, No SI/HI/AH/VH, No Social Issues, Heme/Lymph: No Bruising, No Bleeding,No Lymphadenopathy Endocrine : No Polyuria, No Polydipsia, No Temperature Intolerance [facility] Past Medical History Medical History Opioid use disorder, severe, in early remission Opioid dependence Social History Social History Household Members: Unknown / Unable to assess Housing: Unknown / Unable to assess Comment: pt refusing all alarms and precautions Patient Tobacco Use Status: Tobacco use Unknown Substance Use Type: Unknown Advance Directives: Yes Advance Directives on File: Yes Advance Directives Date on File: 11/10/23 Do you have a plan to hurt others: No Plan service: No Physical Exam ED Vital Signs: Vital Signs - 24 hr 01/22/24 11:16 01/22/24 15:08 01/22/24 18:23 Temperature 98.2 F 98.2 F 98.0 F Pulse Rate 83 75 64 Respiratory Rate 18 16 17 Blood Pressure 155/74 H 128/62 120/68 Pulse Oximetry 95 93 92 Oxygen Delivery Method Room Air Room Air Room Air BMI result Body Mass Index 55.9 Const Other: Appearance: Alert. Oriented X3. No acute distress. Very somnolent, easily arousable Eyes: Pupils equal, round and reactive to light. ENT: Pharynx normal. Neck: Normal inspection. Neck supple. No lymph nodes noted. No crepitus CVS: Normal heart rate and rhythm. Pulses normal. Normal S1 and S2 Respiratory: No respiratory distress. Breath sounds normal. No Wheezing. No rales Abdomen: Soft and nontender. No rigidity. No distention. Skin: Skin warm and dry. Normal skin color. Normal skin turgor. Extremities: No lower extremity edema. No Lacerations. No Rash Neuro: Oriented X 3. No motor deficit. No sensory deficit. Moving all extremities. No slurred speech. CN 2 through 12 grossly intact Psych: calm, cooperative, normal affect Course Course Course Narrative: This is a Rapid Medical Examination (RME) performed by Luz Marina Vee PA-C in triage. Full HPI, ROS, assessment and treatment plan per primary provider in the Main ED. 39 yo female presents to the ER for evaluation of hyperglycemia at Urgent Care, glucose in the 360s. no known DM diagnosis. She endorses intermittent abdominal pain. VSS and appears well in triage. Plan: lab workup Medications Administered Discontinued Medications Generic Name Dose Route Start Last Admin Trade Name Freq PRN Reason Stop Dose Admin Sodium Chloride 1,000 mls @ 999 mls/hr 01/22/24 15:15 01/22/24 17:40 Ns IVCONT 01/22/24 16:15 Infused .Q1H1M NISSA Infusion Insulin Human Regular 5 unit 01/22/24 16:31 01/22/24 17:10 Insulin Regular, Human 100 Unit/Ml 10 Ml Vial IVPUSH 01/22/24 16:32 5 unit ONCE ONE Administration Medical Decision Making Medical Decision Making [facility] Narrative: -my interpretation of labs: Normal hematology, chemistry shows a sodium of 130 which is within normal limits for corrected hyperglycemia. PH normal, A1c 11.9. Patient has chronically elevated AST, negative for UTI. -patient receiving IV fluids and 5 units of insulin. -discussed with the patient that upon discharge, she will be taking medications to control her blood glucose. Patient agreeable with plan. Patient was found vaping on her blanket After IV fluids and 5 units of insulin, patient's glucose improved to 188. Patient will be discharged with metformin. Patient instructed to have close follow-up with the PCP Differential Diagnosis Differential Diagnoses: The differential diagnosis associated with the presentation includes Admission/Observation Consideration of admission/observation: Escalation of care including admission/observation considered (Given patient's symptoms and labs, observation considered) Lab Data [facility] Lab Attestation statement: I reviewed the patient's lab results. 01/22/24 11:52 01/22/24 11:52 Labs: Lab Results 01/22/24 01/22/24 01/22/24 Range/Units 11:52 12:00 19:04 WBC 6.8 (4.8-10.8) X10*3/uL RBC 4.69 (4.20-5.50) X10*6/uL Hgb 12.0 (12.0-16.0) g/dl Hct 37.8 (37.0-47.0) % MCV 80.6 (80.0-98.0) fL MCH 25.6 L (27.0-33.0) pg MCHC 31.7 (31.0-35.0) g/dl RDW 16.1 H (11.0-16.0) % Plt Count 280 D (160-400) X10*3/uL MPV 10.9 (9.4-12.3) fL Immature Gran % (Auto) 0.4 (0.0-0.4) % Neut % (Auto) 63.0 (45-73) % Lymph % (Auto) 26.1 (20-40) % [place] % (Auto) 6.0 (2-11) % Eos % (Auto) 3.8 (0-4) % Baso % (Auto) 0.7 (0-2) % Lymph # (Auto) 1.8 (1.2-4.9) X10*3/uL [place] # (Auto) 0.4 (0.1-1.2) X10*3/uL Eos # (Auto) 0.3 (0.0-0.4) X10*3/uL Baso # (Auto) 0.1 (0.0-0.2) X10*3/uL Abs Immat Gran (auto) 0.03 (0.00-0.03) X10*3/uL Absolute Neuts (auto) 4.3 (2.0-8.3) x10*3/uL Absolute Nucleated RBC 0.000 (0.0-0.012) X10*3/uL Nucleated RBC % (auto) 0.0 (0.0-0.2) /100WBC VBG pH 7.45 H (7.32-7.43) VBG pCO2 36 mmHg VBG pO2 133 mmHg VBG HCO3 25 (22-26) mmol/L VBG O2 Saturation 99.0 % VBG Base Excess 1.9 mmol/L Sodium 130 L (135-145) mmol/L Potassium 4.6 (3.3-5.1) mmol/L Chloride 94 L (96-108) mmol/L Carbon Dioxide 24 (22-29) mmol/L Anion Gap 17 (12-20) BUN 15 (9-16) mg/dL Creatinine 1.25 (0.5-1.4) mg/dL Estim Creat Clear Calc 83.1 Estimated GFR 48 POC Glucose 188 H (60-115) mg/dL Random Glucose 397 H* (60-115) mg/dL Estimat Average Glucose 295 mg/dL Hemoglobin A1c % 11.9 H (<6.0) % Calcium 9.4 (8.4-10.2) mg/dL Magnesium 2.1 (1.6-2.6) mg/dL Total Bilirubin 0.3 (0.0-1.0) mg/dL Direct Bilirubin 0.1 (0.0-0.5) mg/dL AST 60 H (5-31) U/L ALT 37 H (0-31) U/L Alkaline Phosphatase 195 H (39-117) U/L Total Protein 8.5 H (6.5-8.0) g/dL Albumin 4.3 (3.5-5.0) g/dL Beta-Hydroxybutyrate 0.11 (0.02-0.27) mmol/L TSH 5.99 H (0.32-4.0) uIU/mL Free T4 0.98 (0.71-1.85) ng/dL Urine Color Yellow Urine Appearance Clear Urine pH 6.5 (5.0-9.0) Ur Specific [place] 1.010 (1.005-1.025) Urine Protein Negative (Neg-Trace) mg/dL Urine Glucose (UA) 250 H (Negative) mg/dL Urine Ketones Negative (Negative) mg/dL Urine Blood Negative (Negative) Urine Nitrite Negative (Negative) Ur Leukocyte Esterase Negative (Negative) Urine Opiates Screen Not Detected (Not Detect) Ur Buprenorphine Scrn Not Detected (Not Detect) ng/mL Ur Oxycodone Screen Not Detected (Not Detect) ng/mL Urine Methadone Screen Positive H (Not Detect) ng/mL Urine Fentanyl Screen Not Detected (Not Detect) Ur Barbiturates Screen Not Detected (Not Detect) Ur Phencyclidine Scrn Not Detected (Not Detect) Ur Amphetamines Screen Not Detected (Not Detect) U Benzodiazepines Scrn POSITIVE H (Not Detect) Urine Cocaine Screen Not Detected (Not Detect) U Marijuana (THC) Screen Not Detected (Not Detect) Critical Care Time Critical Care Time Critical Care Time: Yes Total Critical Care Time: 45 Attestation: I have personally provided critical care time. Time includes review of lab data, radiology results, discussion with consultants, and monitoring for potential decompensation. Intervention performed as documented. Discharge Plan Discharge Clinical Impression: Diabetes mellitus, new onset Patient Disposition: Home, Self-Care Instructions: Type 2 Diabetes in Adults: New Diagnosis (ED), Diabetes and Nutrition (ED), Diabetes and Exercise (ED) Additional Instructions: Please follow-up with your primary care physician tomorrow. If you have any worsening or new symptoms, please return to the emergency room or call 911 Prescriptions: New metformin 500 mg tablet 500 mg PO BID Qty: 60 2RF No Action lamotrigine 200 mg tablet 400 mg PO BEDTIME alprazolam 1 mg tablet 1 mg PO QID PRN (Reason: Anxiety) potassium chloride 10 mEq tablet extended release 20 meq PO DAILY aspirin 81 mg tablet,delayed release (DR/EC) 81 mg PO DAILY triamcinolone acetonide 0.1 % cream 1 appl topical BID promethazine 50 mg tablet 100 mg PO BID@1200,2100 Rx Instructions: At noon and bedtime diphenhydramine HCl [Banophen] 25 mg tablet 75 mg PO BEDTIME PRN (Reason: insomnia) omeprazole 20 mg capsule,delayed release(DR/EC) 20 mg PO DAILY@0630 diclofenac sodium 75 mg tablet,delayed release (DR/EC) 75 mg PO BID@1200,2100 Rx Instructions: At noon and at bedtime zolpidem 10 mg tablet 10 mg PO BEDTIME albuterol sulfate [Ventolin HFA] 90 mcg/actuation HFA aerosol inhaler 2 puff inhalation Q6H PRN (Reason: Shortness Of Breath Or Wheezing) doxazosin 2 mg tablet 2 mg PO BEDTIME levothyroxine 112 mcg tablet 112 mcg PO DAILY@0600 pregabalin 150 mg capsule 300 mg PO BID lurasidone 80 mg tablet 80 mg PO DAILY acetaminophen 325 mg tablet 650 mg PO Q6H PRN (Reason: pain) torsemide 20 mg tablet 40 mg PO DAILY prazosin 5 mg capsule 5 mg PO BID promethazine 50 mg tablet 100 mg PO DAILY Rx Instructions: 2 tablets at 5:30am diclofenac sodium 75 mg tablet,delayed release (DR/EC) 150 mg PO DAILY multivitamin with folic acid [Tab-A-[place]] 400 mcg Tablet 1 tab PO DAILY torsemide 20 mg tablet 20 mg PO BEDTIME methadone 10 mg/5 mL Solution 120 mg PO DAILY methadone 10 mg/5 mL Solution 75 mg PO DAILY@1800 doxycycline monohydrate 100 mg capsule 100 mg PO BID Qty: 20 0RF amoxicillin-pot clavulanate 875-125 mg tablet 1 tab PO BID Qty: 20 0RF Print Language: Swedish
[2024-01-22 11:59] LABS: MANUAL DIFF FLAG NO
[2024-01-22 12:01] LABS: Appearance Urine Clear; Color Urine Yellow; Glucose Urine UA 250 mg/dL (Negative); Leukocyte Esterase Urine Negative (Negative); Nitrite Urine Negative (Negative); PH 6.5 (5.0-9.0); Urine Blood Negative (Negative); Urine Ketones Negative (Negative); Urine Protein Negative (Neg-Trace)
[2024-01-22 12:02] LABS: Basophils Absolute Auto 0.1 X10*3/uL (0.0-0.2); Basophils Percent Auto 0.7 % (0-2); Eosinophils Absolute Auto 0.3 X10*3/uL (0.0-0.4); Eosinophils Percent Auto 3.8 % (0-4); Hematocrit 37.8 % (37.0-47.0); Imm Gran Abs Auto 0.03 X10*3/uL (0.00-0.03); Imm Gran Pct Auto 0.4 % (0.0-0.4); Lymphocytes Absolute Auto 1.8 X10*3/uL (1.2-4.9); Lymphocytes Percent Auto 26.1 % (20-40); Mean Corpuscular HGB Conc 31.7 g/dl (31.0-35.0); Mean Corpuscular Hemoglobin 25.6 pg (27.0-33.0); Mean Corpuscular Volume 80.6 fL (80.0-98.0); Mean Platelet Volume 10.9 fL (9.4-12.3); Monocytes Absolute Auto 0.4 X10*3/uL (0.1-1.2); Neutrophils Absolute Auto 4.3 x10*3/uL (2.0-8.3); Platelet Count 280 X10*3/uL (160-400); Red Blood Count 4.69 X10*6/uL (4.20-5.50); Red Cell Distribution Width 16.1 % (11.0-16.0); White Blood Count 6.8 X10*3/uL (4.8-10.8)
[2024-01-22 12:04] LABS: VBG Base Excess 1.9 mmol/L; VBG HCO3 25 mmol/L (22-26); VBG pCO2 36 mmHg; VBG pH 7.45 (7.32-7.43); VBG pO2 133 mmHg
[2024-01-22 12:04] LABS: Venous Blood Gas Refer to POC result
[2024-01-22 12:13] LABS: Estimated Average Glucose 295 mg/dL; Hemoglobin A1c % 11.9 % (<6.0)
[2024-01-22 12:20] LABS: Alanine Aminotransferase 37 U/L (0-31); Albumin Level 4.3 g/dL (3.5-5.0); Alkaline Phosphatase 195 U/L (39-117); Anion Gap 17 (12-20); Aspartate Amino Transferase 60 U/L (5-31); Bilirubin Direct 0.1 mg/dL (0.0-0.5); Bilirubin Total 0.3 mg/dL (0.0-1.0); Blood Urea Nitrogen 15 mg/dL (9-16); Calcium 9.4 mg/dL (8.4-10.2); Carbon Dioxide 24 mmol/L (22-29); Chloride 94 mmol/L (96-108); Creatinine Clr Calc Pharmacy 83.1; Estimated Glomerular Filt Rate 48; Glucose Random 397 mg/dL (60-115); Magnesium 2.1 mg/dL (1.6-2.6); Potassium 4.6 mmol/L (3.3-5.1); Sodium 130 mmol/L (135-145); Total Protein 8.5 g/dL (6.5-8.0)
[2024-01-22 12:26] LABS: Beta-Hydroxybutyrate 0.11 mmol/L (0.02-0.27)
[2024-01-22 15:08] VITALS: BP 128/62; PULSE 75; RESP 16; TEMP 36.8; O2SAT 93
[2024-01-22] MEDS: 0.9 % Sodium Chloride 1,000 ML 999 ML IVCONT (15:58)
[2024-01-22 17:02] LABS: Amphetamine Screen Urine Not Detected (Not Detect); Barbiturates, Urine Not Detected (Not Detect); Benzodiazepines Screen Urine POSITIVE (Not Detect); Buprenorphine Scr Not Detected (Not Detect); Cannabinoid Screen Urine Not Detected (Not Detect); Cocaine Screen Urine Not Detected (Not Detect); Fentanyl, urine Not Detected (Not Detect); Methadone Screen, Urine Positive (Not Detect); Opiate Screen Urine Not Detected (Not Detect); Oxycodone Screen Urine Not Detected (Not Detect); Phencyclidine Screen Urine Not Detected (Not Detect)
[2024-01-22] MEDS: Insulin Regular, Human 100 UNIT/ML 10 ML VIAL IVPUSH (17:10)
[2024-01-22 17:29] LABS: TSH reflex Free T4 5.99 uIU/mL (0.32-4.0)
[2024-01-22 18:23] VITALS: BP 120/68; PULSE 64; RESP 17; TEMP 36.7; O2SAT 92
[2024-01-22 18:54] LABS: Free T4 (Free Thyroxine) 0.98 ng/dL (0.71-1.85)
[2024-01-22 19:09] LABS: Glucose, Whole Blood 188 mg/dL (60-115)
[2024-01-22 20:16] VITALS: BP 127/81; PULSE 87; RESP 18; TEMP 36.6; O2SAT 95
[2024-01-22 20:17] VITALS: BP 127/81; PULSE 87; RESP 18; TEMP 36.6; O2SAT 95
== END 2024-01-22 20:19 | disposition home or self-care (01) ==
PROVIDERS: Physician Assistant; Emergency Provider Emergency Medicine
DX: E11.9 Type 2 diabetes mellitus without complications (principal); F11.20 Opioid dependence, uncomplicated; Z79.899 Other long term (current) drug therapy; Z79.82 Long term (current) use of aspirin
CPT/HCPCS: 36415; 80048; 80076; 80307; 81003; 82010; 82803; 82947; 83036; 83735; 84439; 84443; 85025; 96361; 96374; 99284